=== PATIENT | female | born 1975 | race Caucasian/White ===

== ENCOUNTER 2017-06-29 11:28 | Inpatient (IN) ==
[2017-06-29 12:14] LABS: Basophils % 0.6 %; Eosinophils # 0.2 K/mcL (0.0-0.6); Eosinophils % 2.9 %; Hematocrit 29.5 % (35.3-44.9); Hemoglobin 9.3 g/dL (11.5-15.4); Immature Granulocytes % 0.4 % (0-4); Lymphocytes # 0.3 K/mcL (0.6-4.6); Lymphocytes % 5.7 %; Mean Corpuscular HGB Conc 31.5 g/dL (31.6-35.5); Mean Corpuscular Hemoglobin 29.2 pg (28.0-33.3); Mean Corpuscular Volume 92.5 fL (83.0-100.0); Mean Platelet Volume 11.2 fL (9.4-12.4); Monocytes # 0.5 K/mcL (0.0-1.3); Neutrophils # 4.3 K/mcL (1.6-8.9); Platelet Count 218 K/mcL (140-400); Red Blood Count 3.19 M/mcL (3.82-4.97); Segmented Neutrophils % 81.4 %
--- NOTE | 2017-06-29 12:16 | Emergency Department Note ---
Disposition Clinical Impression: Acute exacerbation of chronic obstructive airways disease, Congestive heart failure Disposition: Admitted As Inpatient Condition: Good General Adult HPI - General Chief complaint: ED Shortness of Breath/Dyspnea Stated complaint: "CHF,sent from cardiology" Time Seen by Provider: 06/29/17 11:41 Source: patient, family Mode of arrival: ambulatory Limitations: no limitations Nursing Notes Reviewed: Yes Vital Signs Reviewed: Yes - History of Present Illness HPI Narrative: Patient presents to the ED from cardiology office for admission for new onset CHF. Patient states she was seeing cardiology here as a second opinion from the CHF unit at [facility]. States that [facility] wanted to put in a pacemaker for an EF of 30%, but she did not agree. She states that she does not have any chest pain or shortness breath. No history of coronary artery disease. States that she gets abdominal pain and swelling and bloating and they told her that the CHF is and her belly. She does not have any peripheral edema. States she otherwise feels fine but just wanted a second opinion and they wanted her admitted for nephrology consult and echocardiogram. Pain Scale: 8 - Related Data Home Medications Medication Instructions Recorded Confirmed Carvedilol [Coreg] 50 mg PO BID 06/29/17 06/29/17 Gabapentin [Neurontin] 300 mg PO BID 06/29/17 06/29/17 GlipiZIDE [Glipizide ER] 10 mg PO BID 06/29/17 06/29/17 HYDROcodone/Acet 10/325 mg [[place] 2 tab PO TID PRN 06/29/17 06/29/17 10-325 mg] Hydralazine HCl 100 mg PO TID 06/29/17 06/29/17 Insulin ASPART [Novolog] 8 unit SQ TIDWM PRN 06/29/17 06/29/17 Insulin Glargine,Hum.rec.anlog 20 unit SQ HS PRN 06/29/17 06/29/17 [Lantus Solostar] Isosorbide DInitrate [Isosorbide 30 mg PO TID 06/29/17 06/29/17 Dinitrate] Levothyroxine [Synthroid] 50 mcg PO 0630 06/29/17 06/29/17 Lisinopril-HCTZ 10-12.5 [Prinzide 1 tab PO BID 06/29/17 06/29/17 10-12.5] Sertraline [Zoloft] 100 mg PO DAILY 06/29/17 06/29/17 Torsemide [Demadex] 40 mg PO QID 06/29/17 06/29/17 Allergies Allergy/AdvReac Type Severity Reaction Status Date / Time baclofen Allergy Diarrhea Verified 06/29/17 12:45 exenatide [From [place]] Allergy Diarrhea Verified 06/29/17 12:45 sulfamethoxazole Allergy Rash Verified 06/29/17 12:45 [From Bactrim] trimethoprim [From Bactrim] Allergy Rash Verified 06/29/17 12:45 Review of Systems: As reviewed in the HPI. All other systems reviewed are negative or normal. Past Medical History - Past Medical History Attestation: Yes The following information was validated with the patient. Source: patient Medical history: Reports: non-contributory, CHF, diabetes, hypertension, other Psychiatric history: Reports: depression - Social History Smoking Status: Former smoker Smokeless Tobacco Status: No Alcohol use: Reports: none Drug use: Reports: none Physical Exam - General Limitations: no limitations General appearance: alert, in no apparent distress - Head Head exam: atraumatic, normocephalic, normal inspection - Eye Eye exam: Present: normal appearance, PERRL, EOMI - Chest Chest inspection: Present: normal inspection, symmetric chest wall rise - Respiratory Respiratory exam: Present: normal lung sounds bilaterally. Absent: respiratory distress, wheezes - Cardiovascular Cardiovascular exam: Present: regular rate, normal rhythm, normal heart sounds - Abdominal Exam Abdominal exam: Present: soft, distention, other (obese but no obvious ascites ) . Absent: tenderness, guarding, rebound, rigidity - Extremities Exam Extremities exam: Present: normal inspection, full ROM. Absent: tenderness, pedal edema - Neurological Exam Neurological exam: Present: alert, oriented X3 - Psychiatric Psychiatric exam: Present: normal affect, normal mood - Skin Skin exam: Present: warm, dry, intact, normal color Course Course Narrative: Patient presenting from cardiology for admission and CHF workup. Clinically she does not appear to be in acute CHF. We will check labs. We will also check liver enzymes and liver function, although she denies any history of hepatitis or cirrhosis. Vital Signs Temperature 97.9 F 06/29/17 11:34 Pulse Rate 73 06/29/17 11:34 Respiratory Rate 22 06/29/17 11:34 Blood Pressure 149/86 06/29/17 11:34 O2 Sat by Pulse Oximetry 93 06/29/17 11:34 Temperature 98.1 F 06/29/17 15:52 Pulse Rate 75 06/29/17 15:52 Respiratory Rate 16 06/29/17 15:52 Blood Pressure 151/88 06/29/17 15:52 O2 Sat by Pulse Oximetry 95 06/29/17 15:52 Oxygen Delivery Oxygen Delivery Room Air Medical Decision Making - Medical Records Medical records reviewed: Yes I reviewed the patient's medical records. - Lab Data Lab results reviewed: Yes I reviewed the patient's lab results. Result diagrams: 06/29/17 12:03 06/29/17 12:03 Lab Results 06/29/17 06/29/17 06/29/17 Range/Units 12:03 12:03 12:03 WBC 5.2 (4.3-11.1) K/mcL RBC 3.19 L (3.82-4.97) M/mcL Hgb 9.3 L (11.5-15.4) g/dL Hct 29.5 L (35.3-44.9) % MCV 92.5 (83.0-100.0) fL MCH 29.2 (28.0-33.3) pg MCHC 31.5 L (31.6-35.5) g/dL RDW 14.0 (11.5-14.5) % Plt Count 218 (140-400) K/mcL MPV 11.2 (9.4-12.4) fL Immature Gran % 0.4 (0-4) % Seg Neutrophils % 81.4 % Lymphocytes % 5.7 % Monocytes % 9.0 % Eosinophils % 2.9 % Basophils % 0.6 % Neutrophils # 4.3 (1.6-8.9) K/mcL Lymphocytes # 0.3 L (0.6-4.6) K/mcL Monocytes # 0.5 (0.0-1.3) K/mcL Eosinophils # 0.2 (0.0-0.6) K/mcL Basophils # 0.0 (0.0-0.2) K/mcL PT 13.6 H (9.4-12.1) Seconds INR 1.3 APTT 30.2 (26.0-36.0) Seconds Sodium 137 (136-145) mEq/L Potassium 4.3 (3.5-5.1) mEq/L Chloride 97 L (98-107) mEq/L Carbon Dioxide 30 H (23-29) mEq/L BUN 88 H (6-20) mg/dL Creatinine 3.11 H (0.60-1.20) mg/dL Est GFR ( Amer) 20 L (> 60) Est GFR (Non-Af Amer) 16 L (> 60) BUN/Creatinine Ratio 28 H (6-26) Glucose 225 H (70-105) mg/dL Calculated Osmolality 318 H (280-300) Lactic Acid (0.5-2.2) mmol/L Calcium 7.6 L (8.6-10.3) mg/dL Phosphorus 5.3 H (2.7-4.5) mg/dL Total Bilirubin 0.4 (0.3-1.0) mg/dL Direct Bilirubin 0.2 (0.0-0.2) mg/dL Indirect Bilirubin 0.2 (0.0-1.2) mg/dL AST 14 (13-39) Units/L ALT 10 (7-52) Units/L Alkaline Phosphatase 167 H (34-104) Units/L Troponin I 0.03 (< 0.04) ng/mL B-Natriuretic Peptide (Less than 100) pg/mL Serum Total Protein 8.0 (6.4-8.9) g/dL Albumin 3.4 L (3.5-5.7) g/dL Globulin 4.6 H (2.4-3.5) g/dL Albumin/Globulin Ratio 0.7 L (1.1-2.2) TSH 11.357 H (0.340-5.600) mcIU/mL Urine Color (Yellow) Urine Clarity (Clear) Urine pH (5.0-8.0) pH Units Ur Specific [place] (1.010-1.025) Urine Protein (Neg-Trace) mg/dL Urine Glucose (UA) (Normal) mg/dL Urine Ketones (Negative) mg/dL Urine Blood (Negative) Urine Nitrite (Negative) Urine Bilirubin (Negative) Urine Urobilinogen (Normal) mg/dL Ur Leukocyte Esterase (Negative) Urine Microscopic RBC (0-3) per hpf Urine Microscopic WBC (0-3) per hpf Ur Squamous Epith Cells (None-Few) per lpf Urine Bacteria (None-Few) per hpf Hyaline Casts (None-Few) per lpf Ur Culture Indicated? (NO) Urine Creatinine mg/dL Protein/Creatinin Ratio (0.00-0.20) mg/mg Urine Sodium mEq/L Urine Urea Nitrogen mg/dL Urine Total Protein (1-14) mg/dL 06/29/17 06/29/17 06/29/17 Range/Units 12:03 12:03 12:32 WBC (4.3-11.1) K/mcL RBC (3.82-4.97) M/mcL Hgb (11.5-15.4) g/dL Hct (35.3-44.9) % MCV (83.0-100.0) fL MCH (28.0-33.3) pg MCHC (31.6-35.5) g/dL RDW (11.5-14.5) % Plt Count (140-400) K/mcL MPV (9.4-12.4) fL Immature Gran % (0-4) % Seg Neutrophils % % Lymphocytes % % Monocytes % % Eosinophils % % Basophils % % Neutrophils # (1.6-8.9) K/mcL Lymphocytes # (0.6-4.6) K/mcL Monocytes # (0.0-1.3) K/mcL Eosinophils # (0.0-0.6) K/mcL Basophils # (0.0-0.2) K/mcL PT (9.4-12.1) Seconds INR APTT (26.0-36.0) Seconds Sodium (136-145) mEq/L Potassium (3.5-5.1) mEq/L Chloride (98-107) mEq/L Carbon Dioxide (23-29) mEq/L BUN (6-20) mg/dL Creatinine (0.60-1.20) mg/dL Est GFR ( Amer) (> 60) Est GFR (Non-Af Amer) (> 60) BUN/Creatinine Ratio (6-26) Glucose (70-105) mg/dL Calculated Osmolality (280-300) Lactic Acid 0.8 (0.5-2.2) mmol/L Calcium (8.6-10.3) mg/dL Phosphorus (2.7-4.5) mg/dL Total Bilirubin (0.3-1.0) mg/dL Direct Bilirubin (0.0-0.2) mg/dL Indirect Bilirubin (0.0-1.2) mg/dL AST (13-39) Units/L ALT (7-52) Units/L Alkaline Phosphatase (34-104) Units/L Troponin I (< 0.04) ng/mL B-Natriuretic Peptide 866 H (Less than 100) pg/mL Serum Total Protein (6.4-8.9) g/dL Albumin (3.5-5.7) g/dL Globulin (2.4-3.5) g/dL Albumin/Globulin Ratio (1.1-2.2) TSH (0.340-5.600) mcIU/mL Urine Color Yellow (Yellow) Urine Clarity Cloudy A (Clear) Urine pH 6.5 (5.0-8.0) pH Units Ur Specific [place] 1.013 (1.010-1.025) Urine Protein 30 H (Neg-Trace) mg/dL Urine Glucose (UA) Normal (Normal) mg/dL Urine Ketones Negative (Negative) mg/dL Urine Blood Negative (Negative) Urine Nitrite Negative (Negative) Urine Bilirubin Negative (Negative) Urine Urobilinogen Normal (Normal) mg/dL Ur Leukocyte Esterase Trace H (Negative) Urine Microscopic RBC 0-3 (0-3) per hpf Urine Microscopic WBC 5-15 H (0-3) per hpf Ur Squamous Epith Cells Many H (None-Few) per lpf Urine Bacteria Many H (None-Few) per hpf Hyaline Casts None Seen (None-Few) per lpf Ur Culture Indicated? NO. A (NO) Urine Creatinine mg/dL Protein/Creatinin Ratio (0.00-0.20) mg/mg Urine Sodium mEq/L Urine Urea Nitrogen mg/dL Urine Total Protein (1-14) mg/dL 06/29/17 Range/Units 12:32 WBC (4.3-11.1) K/mcL RBC (3.82-4.97) M/mcL Hgb (11.5-15.4) g/dL Hct (35.3-44.9) % MCV (83.0-100.0) fL MCH (28.0-33.3) pg MCHC (31.6-35.5) g/dL RDW (11.5-14.5) % Plt Count (140-400) K/mcL MPV (9.4-12.4) fL Immature Gran % (0-4) % Seg Neutrophils % % Lymphocytes % % Monocytes % % Eosinophils % % Basophils % % Neutrophils # (1.6-8.9) K/mcL Lymphocytes # (0.6-4.6) K/mcL Monocytes # (0.0-1.3) K/mcL Eosinophils # (0.0-0.6) K/mcL Basophils # (0.0-0.2) K/mcL PT (9.4-12.1) Seconds INR APTT (26.0-36.0) Seconds Sodium (136-145) mEq/L Potassium (3.5-5.1) mEq/L Chloride (98-107) mEq/L Carbon Dioxide (23-29) mEq/L BUN (6-20) mg/dL Creatinine (0.60-1.20) mg/dL Est GFR ( Amer) (> 60) Est GFR (Non-Af Amer) (> 60) BUN/Creatinine Ratio (6-26) Glucose (70-105) mg/dL Calculated Osmolality (280-300) Lactic Acid (0.5-2.2) mmol/L Calcium (8.6-10.3) mg/dL Phosphorus (2.7-4.5) mg/dL Total Bilirubin (0.3-1.0) mg/dL Direct Bilirubin (0.0-0.2) mg/dL Indirect Bilirubin (0.0-1.2) mg/dL AST (13-39) Units/L ALT (7-52) Units/L Alkaline Phosphatase (34-104) Units/L Troponin I (< 0.04) ng/mL B-Natriuretic Peptide (Less than 100) pg/mL Serum Total Protein (6.4-8.9) g/dL Albumin (3.5-5.7) g/dL Globulin (2.4-3.5) g/dL Albumin/Globulin Ratio (1.1-2.2) TSH (0.340-5.600) mcIU/mL Urine Color (Yellow) Urine Clarity (Clear) Urine pH (5.0-8.0) pH Units Ur Specific [place] (1.010-1.025) Urine Protein (Neg-Trace) mg/dL Urine Glucose (UA) (Normal) mg/dL Urine Ketones (Negative) mg/dL Urine Blood (Negative) Urine Nitrite (Negative) Urine Bilirubin (Negative) Urine Urobilinogen (Normal) mg/dL Ur Leukocyte Esterase (Negative) Urine Microscopic RBC (0-3) per hpf Urine Microscopic WBC (0-3) per hpf Ur Squamous Epith Cells (None-Few) per lpf Urine Bacteria (None-Few) per hpf Hyaline Casts (None-Few) per lpf Ur Culture Indicated? (NO) Urine Creatinine 63 mg/dL Protein/Creatinin Ratio 0.75 H (0.00-0.20) mg/mg Urine Sodium 77.4 mEq/L Urine Urea Nitrogen 320 mg/dL Urine Total Protein 47 H (1-14) mg/dL - Radiology Data Radiology results reviewed: Yes I reviewed the patient's radiology results. - EKG Data EKG #1 EKG attestation: Yes I reviewed and interpreted this EKG. EKG results narrative: Sinus rhythm, rate 74, NV interval 147, QRS 90, QTC 439, normal axis, no acute ischemic changes
[2017-06-29 12:22] LABS: INR 1.3; Prothrombin Time 13.6 Seconds (9.4-12.1)
--- NOTE | 2017-06-29 12:24 | Emergency Department Note ---
Disposition Clinical Impression: Acute exacerbation of chronic obstructive airways disease, Congestive heart failure Disposition: Admitted As Inpatient Condition: Good General Adult HPI - General Chief complaint: ED Shortness of Breath/Dyspnea Stated complaint: "CHF,sent from cardiology" Time Seen by Provider: 06/29/17 11:41 Source: patient, family Limitations: no limitations Nursing Notes Reviewed: Yes Vital Signs Reviewed: Yes - History of Present Illness Pain Scale: 8 - Related Data Home Medications Medication Instructions Recorded Confirmed Carvedilol [Coreg] 50 mg PO BID 06/29/17 06/29/17 Gabapentin [Neurontin] 300 mg PO BID 06/29/17 06/29/17 GlipiZIDE [Glipizide ER] 10 mg PO BID 06/29/17 06/29/17 HYDROcodone/Acet 10/325 mg [[place] 2 tab PO TID PRN 06/29/17 06/29/17 10-325 mg] Hydralazine HCl 100 mg PO TID 06/29/17 06/29/17 Insulin ASPART [Novolog] 8 unit SQ TIDWM PRN 06/29/17 06/29/17 Insulin Glargine,Hum.rec.anlog 20 unit SQ HS PRN 06/29/17 06/29/17 [Lantus Solostar] Isosorbide DInitrate [Isosorbide 30 mg PO TID 06/29/17 06/29/17 Dinitrate] Levothyroxine [Synthroid] 50 mcg PO 0630 06/29/17 06/29/17 Lisinopril-HCTZ 10-12.5 [Prinzide 1 tab PO BID 06/29/17 06/29/17 10-12.5] Sertraline [Zoloft] 100 mg PO DAILY 06/29/17 06/29/17 Torsemide [Demadex] 40 mg PO QID 06/29/17 06/29/17 Allergies Allergy/AdvReac Type Severity Reaction Status Date / Time baclofen Allergy Diarrhea Verified 06/29/17 12:45 exenatide [From [place]] Allergy Diarrhea Verified 06/29/17 12:45 sulfamethoxazole Allergy Rash Verified 06/29/17 12:45 [From Bactrim] trimethoprim [From Bactrim] Allergy Rash Verified 06/29/17 12:45 Past Medical History - Past Medical History Medical history: Reports: non-contributory, CHF, diabetes, hypertension, other Psychiatric history: Reports: depression - Social History Smoking Status: Former smoker Smokeless Tobacco Status: No Alcohol use: Reports: none Drug use: Reports: none Physical Exam - General Limitations: no limitations General appearance: alert, in no apparent distress Course Vital Signs Temperature 97.9 F 06/29/17 11:34 Pulse Rate 73 06/29/17 11:34 Respiratory Rate 22 06/29/17 11:34 Blood Pressure 149/86 06/29/17 11:34 O2 Sat by Pulse Oximetry 93 06/29/17 11:34 Temperature 98.1 F 06/29/17 15:52 Pulse Rate 75 06/29/17 15:52 Respiratory Rate 16 06/29/17 15:52 Blood Pressure 151/88 06/29/17 15:52 O2 Sat by Pulse Oximetry 95 06/29/17 15:52 Oxygen Delivery Oxygen Delivery Room Air Medical Decision Making - MDM Narrative Medical decision making narrative: This documentation is done with the assistance of Dragon dictation. Despite efforts made to ensure accuracy, there may be inaccuracies in grade foreman or spelling and typographical errors. Patient is comfortable at this time labs are fairly unimpressive. Chest x-ray shows no acute CHF. We will bring her in for evaluation. Spoke with hospitalist in agreement with this plan. Chest X-Ray 06/29/17 11:42 IMPRESSION: No acute abnormality. D/ / Isael Odonnell MD / Isael Odonnell MD Interpreting Provider: Isale Odonnell MD - Lab Data Result diagrams: 06/29/17 12:03 06/29/17 12:03 Lab Results 06/29/17 06/29/17 06/29/17 Range/Units 12:03 12:03 12:03 WBC 5.2 (4.3-11.1) K/mcL RBC 3.19 L (3.82-4.97) M/mcL Hgb 9.3 L (11.5-15.4) g/dL Hct 29.5 L (35.3-44.9) % MCV 92.5 (83.0-100.0) fL MCH 29.2 (28.0-33.3) pg MCHC 31.5 L (31.6-35.5) g/dL RDW 14.0 (11.5-14.5) % Plt Count 218 (140-400) K/mcL MPV 11.2 (9.4-12.4) fL Immature Gran % 0.4 (0-4) % Seg Neutrophils % 81.4 % Lymphocytes % 5.7 % Monocytes % 9.0 % Eosinophils % 2.9 % Basophils % 0.6 % Neutrophils # 4.3 (1.6-8.9) K/mcL Lymphocytes # 0.3 L (0.6-4.6) K/mcL Monocytes # 0.5 (0.0-1.3) K/mcL Eosinophils # 0.2 (0.0-0.6) K/mcL Basophils # 0.0 (0.0-0.2) K/mcL PT 13.6 H (9.4-12.1) Seconds INR 1.3 APTT 30.2 (26.0-36.0) Seconds Sodium 137 (136-145) mEq/L Potassium 4.3 (3.5-5.1) mEq/L Chloride 97 L (98-107) mEq/L Carbon Dioxide 30 H (23-29) mEq/L BUN 88 H (6-20) mg/dL Creatinine 3.11 H (0.60-1.20) mg/dL Est GFR ( Amer) 20 L (> 60) Est GFR (Non-Af Amer) 16 L (> 60) BUN/Creatinine Ratio 28 H (6-26) Glucose 225 H (70-105) mg/dL Calculated Osmolality 318 H (280-300) Lactic Acid (0.5-2.2) mmol/L Calcium 7.6 L (8.6-10.3) mg/dL Phosphorus 5.3 H (2.7-4.5) mg/dL Total Bilirubin 0.4 (0.3-1.0) mg/dL Direct Bilirubin 0.2 (0.0-0.2) mg/dL Indirect Bilirubin 0.2 (0.0-1.2) mg/dL AST 14 (13-39) Units/L ALT 10 (7-52) Units/L Alkaline Phosphatase 167 H (34-104) Units/L Troponin I 0.03 (< 0.04) ng/mL B-Natriuretic Peptide (Less than 100) pg/mL Serum Total Protein 8.0 (6.4-8.9) g/dL Albumin 3.4 L (3.5-5.7) g/dL Globulin 4.6 H (2.4-3.5) g/dL Albumin/Globulin Ratio 0.7 L (1.1-2.2) TSH 11.357 H (0.340-5.600) mcIU/mL Urine Color (Yellow) Urine Clarity (Clear) Urine pH (5.0-8.0) pH Units Ur Specific [place] (1.010-1.025) Urine Protein (Neg-Trace) mg/dL Urine Glucose (UA) (Normal) mg/dL Urine Ketones (Negative) mg/dL Urine Blood (Negative) Urine Nitrite (Negative) Urine Bilirubin (Negative) Urine Urobilinogen (Normal) mg/dL Ur Leukocyte Esterase (Negative) Urine Microscopic RBC (0-3) per hpf Urine Microscopic WBC (0-3) per hpf Ur Squamous Epith Cells (None-Few) per lpf Urine Bacteria (None-Few) per hpf Hyaline Casts (None-Few) per lpf Ur Culture Indicated? (NO) Urine Creatinine mg/dL Protein/Creatinin Ratio (0.00-0.20) mg/mg Urine Sodium mEq/L Urine Urea Nitrogen mg/dL Urine Total Protein (1-14) mg/dL 06/29/17 06/29/17 06/29/17 Range/Units 12:03 12:03 12:32 WBC (4.3-11.1) K/mcL RBC (3.82-4.97) M/mcL Hgb (11.5-15.4) g/dL Hct (35.3-44.9) % MCV (83.0-100.0) fL MCH (28.0-33.3) pg MCHC (31.6-35.5) g/dL RDW (11.5-14.5) % Plt Count (140-400) K/mcL MPV (9.4-12.4) fL Immature Gran % (0-4) % Seg Neutrophils % % Lymphocytes % % Monocytes % % Eosinophils % % Basophils % % Neutrophils # (1.6-8.9) K/mcL Lymphocytes # (0.6-4.6) K/mcL Monocytes # (0.0-1.3) K/mcL Eosinophils # (0.0-0.6) K/mcL Basophils # (0.0-0.2) K/mcL PT (9.4-12.1) Seconds INR APTT (26.0-36.0) Seconds Sodium (136-145) mEq/L Potassium (3.5-5.1) mEq/L Chloride (98-107) mEq/L Carbon Dioxide (23-29) mEq/L BUN (6-20) mg/dL Creatinine (0.60-1.20) mg/dL Est GFR ( Amer) (> 60) Est GFR (Non-Af Amer) (> 60) BUN/Creatinine Ratio (6-26) Glucose (70-105) mg/dL Calculated Osmolality (280-300) Lactic Acid 0.8 (0.5-2.2) mmol/L Calcium (8.6-10.3) mg/dL Phosphorus (2.7-4.5) mg/dL Total Bilirubin (0.3-1.0) mg/dL Direct Bilirubin (0.0-0.2) mg/dL Indirect Bilirubin (0.0-1.2) mg/dL AST (13-39) Units/L ALT (7-52) Units/L Alkaline Phosphatase (34-104) Units/L Troponin I (< 0.04) ng/mL B-Natriuretic Peptide 866 H (Less than 100) pg/mL Serum Total Protein (6.4-8.9) g/dL Albumin (3.5-5.7) g/dL Globulin (2.4-3.5) g/dL Albumin/Globulin Ratio (1.1-2.2) TSH (0.340-5.600) mcIU/mL Urine Color Yellow (Yellow) Urine Clarity Cloudy A (Clear) Urine pH 6.5 (5.0-8.0) pH Units Ur Specific [place] 1.013 (1.010-1.025) Urine Protein 30 H (Neg-Trace) mg/dL Urine Glucose (UA) Normal (Normal) mg/dL Urine Ketones Negative (Negative) mg/dL Urine Blood Negative (Negative) Urine Nitrite Negative (Negative) Urine Bilirubin Negative (Negative) Urine Urobilinogen Normal (Normal) mg/dL Ur Leukocyte Esterase Trace H (Negative) Urine Microscopic RBC 0-3 (0-3) per hpf Urine Microscopic WBC 5-15 H (0-3) per hpf Ur Squamous Epith Cells Many H (None-Few) per lpf Urine Bacteria Many H (None-Few) per hpf Hyaline Casts None Seen (None-Few) per lpf Ur Culture Indicated? NO. A (NO) Urine Creatinine mg/dL Protein/Creatinin Ratio (0.00-0.20) mg/mg Urine Sodium mEq/L Urine Urea Nitrogen mg/dL Urine Total Protein (1-14) mg/dL 06/29/17 Range/Units 12:32 WBC (4.3-11.1) K/mcL RBC (3.82-4.97) M/mcL Hgb (11.5-15.4) g/dL Hct (35.3-44.9) % MCV (83.0-100.0) fL MCH (28.0-33.3) pg MCHC (31.6-35.5) g/dL RDW (11.5-14.5) % Plt Count (140-400) K/mcL MPV (9.4-12.4) fL Immature Gran % (0-4) % Seg Neutrophils % % Lymphocytes % % Monocytes % % Eosinophils % % Basophils % % Neutrophils # (1.6-8.9) K/mcL Lymphocytes # (0.6-4.6) K/mcL Monocytes # (0.0-1.3) K/mcL Eosinophils # (0.0-0.6) K/mcL Basophils # (0.0-0.2) K/mcL PT (9.4-12.1) Seconds INR APTT (26.0-36.0) Seconds Sodium (136-145) mEq/L Potassium (3.5-5.1) mEq/L Chloride (98-107) mEq/L Carbon Dioxide (23-29) mEq/L BUN (6-20) mg/dL Creatinine (0.60-1.20) mg/dL Est GFR ( Amer) (> 60) Est GFR (Non-Af Amer) (> 60) BUN/Creatinine Ratio (6-26) Glucose (70-105) mg/dL Calculated Osmolality (280-300) Lactic Acid (0.5-2.2) mmol/L Calcium (8.6-10.3) mg/dL Phosphorus (2.7-4.5) mg/dL Total Bilirubin (0.3-1.0) mg/dL Direct Bilirubin (0.0-0.2) mg/dL Indirect Bilirubin (0.0-1.2) mg/dL AST (13-39) Units/L ALT (7-52) Units/L Alkaline Phosphatase (34-104) Units/L Troponin I (< 0.04) ng/mL B-Natriuretic Peptide (Less than 100) pg/mL Serum Total Protein (6.4-8.9) g/dL Albumin (3.5-5.7) g/dL Globulin (2.4-3.5) g/dL Albumin/Globulin Ratio (1.1-2.2) TSH (0.340-5.600) mcIU/mL Urine Color (Yellow) Urine Clarity (Clear) Urine pH (5.0-8.0) pH Units Ur Specific [place] (1.010-1.025) Urine Protein (Neg-Trace) mg/dL Urine Glucose (UA) (Normal) mg/dL Urine Ketones (Negative) mg/dL Urine Blood (Negative) Urine Nitrite (Negative) Urine Bilirubin (Negative) Urine Urobilinogen (Normal) mg/dL Ur Leukocyte Esterase (Negative) Urine Microscopic RBC (0-3) per hpf Urine Microscopic WBC (0-3) per hpf Ur Squamous Epith Cells (None-Few) per lpf Urine Bacteria (None-Few) per hpf Hyaline Casts (None-Few) per lpf Ur Culture Indicated? (NO) Urine Creatinine 63 mg/dL Protein/Creatinin Ratio 0.75 H (0.00-0.20) mg/mg Urine Sodium 77.4 mEq/L Urine Urea Nitrogen 320 mg/dL Urine Total Protein 47 H (1-14) mg/dL Attestation Statement - Attestation Attestation: I examined this patient and my medical decision-making was reviewed with the Resident Physician. I agree with the documented findings, disposition and treatment plan as described except to the extent set forth below. Patient presents with probable CHF and edema in the abdomen and some swelling in the legs shortness of breath and dyspnea has been seen at the CHF clinic at [facility] but not here. We will go ahead and worked the patient up most likely will need admission. They are in agreement with plan. Chest X-Ray 06/29/17 11:42 IMPRESSION: No acute abnormality. D/ / Isael Odonnell MD / Isael Odonnell MD Interpreting Provider: Isael Odonnell MD
[2017-06-29 12:25] LABS: Activated Partial Thrombo Time 30.2 Seconds (26.0-36.0)
[2017-06-29 12:44] LABS: Troponin I 0.03 ng/mL (< 0.04)
[2017-06-29 12:45] LABS: Bilirubin,Urine Negative (Negative); Blood,Urine Negative (Negative); Clarity,Urine Cloudy (Clear); Color,Urine Yellow (Yellow); Glucose,Urine (UA) Normal (Normal); Ketones,Urine Negative (Negative); Leukocyte Esterase,Urine Trace (Negative); Nitrite,Urine Negative (Negative); PH,Urine 6.5 pH Units (5.0-8.0); Protein,Urine 30 mg/dL (Neg-Trace); Specific Gravity,Urine 1.013 (1.010-1.025); Urobilinogen,Urine Normal (Normal)
[2017-06-29 12:46] LABS: Bacteria,Urine Many per hpf (None-Few); Hyaline Casts,Urine None Seen per lpf (None-Few); RBC,Urine 0-3 per hpf (0-3); Squamous Epithelial Cell,Urine Many per lpf (None-Few)
[2017-06-29 13:03] LABS: Albumin 3.4 g/dL (3.5-5.7); Albumin/Globulin Ratio 0.7 (1.1-2.2); Bilirubin,Direct 0.2 mg/dL (0.0-0.2); Bilirubin,Indirect 0.2 mg/dL (0.0-1.2); Bilirubin,Total 0.4 mg/dL (0.3-1.0); Calcium 7.6 mg/dL (8.6-10.3); Globulin 4.6 g/dL (2.4-3.5); Phosphorous 5.3 mg/dL (2.7-4.5); Potassium 4.3 mEq/L (3.5-5.1)
[2017-06-29 13:22] LABS: Thyroid Stimulating Hormone 11.357 mcIU/mL (0.340-5.600)
--- NOTE | 2017-06-29 14:09 | Cardiology Consult Note ---
Date of Encounter: 06/29/17 Time of Encounter: 14:00 Assessment and Plan (1) CHF (congestive heart failure), NYHA class III Current Visit: Yes Status: Acute Per cardiology: -Admitted with CHF. -Reports 30 pound weight gain in 2 months, reports 150 pounds weight gain in 6 months. -Chest x-ray with no acute process. BNP 866. -Increased abdominal girth and lower extremity edema noted -Was on torsemide 80mg BID at home. -Reports compliance with sodium and fluid restriction. -Suspect bi-ventricular heart failure -Strict i/os, daily weights, fluid restriction. -Will discuss and review with Qualifiers: Congestive heart failure type: systolic Congestive heart failure chronicity : acute on chronic Qualified Code(s): I50.23 - Acute on chronic systolic ( congestive) heart failure (2) Cardiomyopathy Current Visit: Yes Status: Acute Per cardiology: -TTE 04/27/17 from [facility] reviewed with LV mildly dilated, mild concentric LVH, diffuse global hypokinesis, LVEF 25-30%, septal flattening of the interventricular septum consistent with RV volume overload, RV is mildly dilated with mildly reduced global systolic function, RA mildly dilated, mild TR , trivial pericardial effusion. -Per review of [facility] records, LHC was not performed due to renal function. Nuclear stress test was performed without evidence of ischemia. Cardiomyopathy thought to be non-ischemic. -On coreg in outpateint setting, previously on halie inhibitor. -Will repeat TTE. -Continue BB, hold halie inhibitor due to renal function. Qualifiers: Cardiomyopathy type: unspecified Qualified Code(s): I42.9 - Cardiomyopathy , unspecified (3) KAYA (acute kidney injury) Current Visit: Yes Status: Acute Per cardiology: -Per patient and creatinine at [facility] 1.9-2.5. -Creatinine 3.11. -Recommend nephrology consult. -Management per primary service. Discussion w patient/family: The assessment and plan as outlined above was discussed with the patient and/or family members who expressed understanding and agreement. All questions were answered. Thank you for involving us in the care of your patient. Please call with any questions. Discussed and reviewed with History of Present Illness Consult date: 06/29/17 Requesting physician: Eliud Pelayo Consult reason: chf Chief complaint: weight gain, shortness of breath History of present illness: Ms. Murphy is a 41 year old female with a relevant past medical history of cardiomyopathy thought to be non-ischemic, CHF, thyroid disease, DM, HTN. Patient presented to outpatient cardiology appointment to obtain a second opinion regarding heart failure. Patient was referred to ER due to weight gain, shortness of breath. Patient reports has gained 30 pounds since March. Patient reports prior to diagnosis with CHF, her weight was 160 pounds, currently 311 pounds. Patient reports increased abdominal girth, increased peripheral edema. Denies chest pain. Reports shortness of breath with exertion. Reports orthopnea. Past Med Surg Social Fam HX - Past Medical History Attestation: Yes The following information was validated with the patient. Source: patient, old records reviewed, obtained from family Medical history: cardiomyopathy, CHF, diabetes, hypertension, thyroid disease, other Psychiatric history: depression - Social History Smoking Status: Former smoker Smokeless Tobacco Status: No Alcohol use: none Drug use: none - Family History Mother Living Status: Hx Family Cancer: Yes Medications and Allergies Carvedilol [Coreg] 50 mg PO BID 06/29/17 [History] Gabapentin [Neurontin] 300 mg PO BID 06/29/17 [History] GlipiZIDE [Glipizide ER] 10 mg PO BID 06/29/17 [History] HYDROcodone/Acet 10/325 mg [[place] 10-325 mg] 2 tab PO TID PRN 06/29/17 [History] Hydralazine HCl 100 mg PO TID 06/29/17 [History] Insulin ASPART [Novolog] 8 unit SQ TIDWM PRN 06/29/17 [History] Insulin Glargine,Hum.rec.anlog [Lantus Solostar] 20 unit SQ HS PRN 06/29/17 [ History] Isosorbide DInitrate [Isosorbide Dinitrate] 30 mg PO TID 06/29/17 [History] Levothyroxine [Synthroid] 50 mcg PO 0630 06/29/17 [History] Lisinopril-HCTZ 10-12.5 [Prinzide 10-12.5] 1 tab PO BID 06/29/17 [History] Sertraline [Zoloft] 100 mg PO DAILY 06/29/17 [History] Torsemide [Demadex] 40 mg PO QID 06/29/17 [History] 3 Allergy/AdvReac Type Severity Reaction Status Date / Time baclofen Allergy Diarrhea Verified 06/29/17 12:45 exenatide [From Byetta] Allergy Diarrhea Verified 06/29/17 12:45 sulfamethoxazole Allergy Rash Verified 06/29/17 12:45 [From Bactrim] trimethoprim [From Bactrim] Allergy Rash Verified 06/29/17 12:45 All Systems Review: The remainder of the systems were reviewed and are negative - Constitutional Constitutional: weight gain - Cardiovascular Cardiovascular: as per HPI, leg edema, orthopnea Physical Examination Vital Signs, Last 4 Hours Temp Pulse Resp BP Pulse Ox 06/29/17 13:13 98.0 F 73 20 137/86 96 06/29/17 12:46 20 148/86 General: Conversant, No Apparent Distress HEENT: Atraumatic, Normocephaly, Mucus Membranes Moist Neck: No JVD, Normal carotid pulses Cardiac: Reg Rate and Rhythm, Normal S1 and S2, No Murmur Lungs: Other (Lung sounds diminished throughout. ) Neuro: Alert and responsive, No focal deficits noted Abdomen: Other (Abdomen hard. ) Skin: No rashes noted on visualized skin Musculoskeletal: No Chest Wall Tenderness Extremities: No Clubbing, No Cyanosis, Normal Pulses, Other (Bilateral lower extremity edema into thighs. ) Results 06/29/17 12:03 06/29/17 12:03 Impressions Chest X-Ray 06/29/17 11:42 IMPRESSION: No acute abnormality. D/ / Isael Odonnell MD / Isael Odonnell MD Interpreting Provider: Isael Odonnell MD Active Medications Hydrocodone Bitart/Acetaminophen ([place] 10-325 Mg) 2 each PO TID PRN PRN Reason: Pain Stop: 12/29/17 14:12 Carvedilol (Coreg) 50 mg PO BID BOWEN PRN Reason: Protocol Stop: 12/29/17 21:01 Gabapentin (Neurontin) 300 mg PO BID BOWEN Stop: 12/29/17 21:01 Glipizide (Glucotrol Xl) 5 mg PO 0800 [facility] Stop: 12/30/17 08:01 Levothyroxine Sodium (Synthroid) 50 mcg PO 0630 BOWEN Stop: 12/30/17 06:31 Non-Formulary Medication (Hydralazine Hcl [Hydralazine Hcl]) 100 mg PO TID BOWEN Stop: 12/29/17 15:01 Sertraline HCl (Zoloft) 100 mg PO DAILY BOWEN Stop: 12/30/17 09:01 Laboratory Tests 05/23/17 06/29/17 06/29/17 11:52 12:03 12:03 Hgb 9.3 L Creatinine 2.77 H 3.11 H B-Natriuretic Peptide 06/29/17 12:03 Hgb Creatinine B-Natriuretic Peptide 866 H - Imaging and Cardiology Chest Xray: report reviewed Echo: pending, report reviewed - EKG Interpretation EKG results cardiology: personally reviewed (ECG with SR, HR 74.) Consult Discharge Plan - Plan Referrals: Ramiro Vargas DO [Primary Care Provider] -
[2017-06-29] MEDS ORDERED: *HR* HYDROcodone/Acet 10/325 mg TABLET PO PRN (14:11)
[2017-06-29] MEDS ORDERED: D5% in Water 1,000 ML IVC PRN ×2 (14:14→19:27)
[2017-06-29] MEDS ORDERED: Dextrose Gel 15 GM/37.5 ML TUBE PO PRN ×4 (14:14→19:27)
[2017-06-29] MEDS ORDERED: *HR* Dextrose 50 % in Water (Syg) 50 ML SYRINGE IVP PRN ×2 (14:14→19:27)
[2017-06-29] MEDS ORDERED: Naloxone 0.4 MG/ML INJ IVP PRN ×2 (14:14→19:27)
--- NOTE | 2017-06-29 14:32 | Internal Med History&Physical ---
Date of Encounter: 06/29/17 Time of Encounter: 14:39 Internal Medicine - H&P: HPI Chief complaint: swelling, weight gain History of present illness: Ms. Murphy is a 41 year old female history of Maria thyroiditis on Synthroid, CKD, diabetes2 [address] Catherine Frausto's office for evaluation of fluid overload - anasarca. She reports visiting Dr. Frausto's office for second opinion. Her care was previously provided at [facility] where she was under the care of this practitioner Jean Claude Lopez for cardio myopathy with LVEF 30%. Was unable to undergo a left heart catheter due to kidney disease. He was reportedly offered a cardiac device per report but had declined. She reports 30 pound weight gain in the legs and belly in the last 2 months. He denies any shortness of breath or evidence of pulmonary edema at current. In the last couple of nights she has stopped using her insulin and is on sulfonylurea due to low blood sugar in the 60s and 70s in the morning. She does have chronic back pain on chronic narcotics. EKG unable to review because they were not available on transfer. However, referencing my EM colleague note in the ED revealed "Sinus rhythm, rate 74, NH interval 147, QRS 90, QTC 439, normal axis, no acute ischemic changes" FINDINGS: The lungs are clear. Pulmonary vascularity is normal. The cardiomediastinal silhouette is normal. XR/XR chest 1V portable IMPRESSION: No acute abnormality. Past Med Surg Social Fam HX - Past Medical History Medical history: cardiomyopathy, CHF, diabetes, hypertension, thyroid disease, other Psychiatric history: depression - Past Surgical History Surgical History: no surgical history, non-contributory - Social History Smoking Status: Former smoker Smokeless Tobacco Status: No Alcohol use: none Drug use: none - Family History Mother Living Status: Hx Family Cancer: Yes Internal Medicine - H&P: Meds Carvedilol [Coreg] 50 mg PO BID 06/29/17 [History] Gabapentin [Neurontin] 300 mg PO BID 06/29/17 [History] GlipiZIDE [Glipizide ER] 10 mg PO BID 06/29/17 [History] HYDROcodone/Acet 10/325 mg [[place] 10-325 mg] 2 tab PO TID PRN 06/29/17 [History] Hydralazine HCl 100 mg PO TID 06/29/17 [History] Insulin ASPART [Novolog] 8 unit SQ TIDWM PRN 06/29/17 [History] Insulin Glargine,Hum.rec.anlog [Lantus Solostar] 20 unit SQ HS PRN 06/29/17 [ History] Isosorbide DInitrate [Isosorbide Dinitrate] 30 mg PO TID 06/29/17 [History] Levothyroxine [Synthroid] 50 mcg PO 0630 06/29/17 [History] Lisinopril-HCTZ 10-12.5 [Prinzide 10-12.5] 1 tab PO BID 06/29/17 [History] Sertraline [Zoloft] 100 mg PO DAILY 06/29/17 [History] Torsemide [Demadex] 40 mg PO QID 06/29/17 [History] 3 Allergy/AdvReac Type Severity Reaction Status Date / Time baclofen Allergy Diarrhea Verified 06/29/17 12:45 exenatide [From Byetta] Allergy Diarrhea Verified 06/29/17 12:45 sulfamethoxazole Allergy Rash Verified 06/29/17 12:45 [From Bactrim] trimethoprim [From Bactrim] Allergy Rash Verified 06/29/17 12:45 All Systems PM: A 10-system review of systems was performed and is negative for pertinent findings except as documented above in the HPI. Review of systems: ROS 14 point review of systems reviewed as best as possible given presentation. Pertinent positive or negative as per HPI or otherwise reviewed as negative - Constitutional Vitals: Temp Pulse Resp BP Pulse Ox 98.0 F 73 20 137/86 96 06/29/17 13:13 06/29/17 13:13 06/29/17 13:13 06/29/17 13:13 06/29/17 13:13 Exam: General - AAO x 3 Psych - Appropriate affect/speech. No agitation Eyes - DEX. Eye lids intact. No scleral icterus Neuro - No gross peripheral or central neuro deficits on inspection Heart - Sinus. RRR. S1 and S2 present. No added HS/murmurs appreciated. Lung - Adequate air entry b/l, No crackles/wheezes appreciated GI - Soft, non-tender. Distended with possible ascites. No hepatosplenomegaly. BS+ - No CVA/suprapubic tenderness or palpable bladder distension Skin - Intact. No rash/petechiae/ecchymosis. +2 bilateral lower extremity edema Internal Med - H&P Results - Labs CBC & Chem 7: 06/29/17 12:03 06/29/17 12:03 - Assessment and plan (1) Anasarca Current Visit: Yes Status: Acute Assessment and plan: Anasarca likely related to volume overload from progressive kidney disease along with cardiac component of right heart failure To Worsening and further progression of disease she was admitted for close inpatient evaluation from Cardiology and nephrology (2) CKD (chronic kidney disease) Current Visit: Yes Status: Acute Assessment and plan: progressive CKD consult renal to assist in eval Will likely need diuretics IV - will have renal assisting in dosing and further management vinayak, 24 hr urine collection for testing - protein, urine lytes, routine screen test UPEP/SPEP/FLC renal US Qualifiers: Chronic kidney disease stage: stage 4 (severe) Qualified Code(s): N18.4 - Chronic kidney disease, stage 4 (severe) (3) Hypothyroid Current Visit: Yes Status: Acute Assessment and plan: has hx of maria. TSH high, check FT4 in a.m. 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 Cards ordered TTE further management pending clinical course No tele in the hospital, therefore unable to order telemetry for monitoring in the setting of low LVEF at [facility] Qualifiers: Cardiomyopathy type: unspecified Qualified Code(s): I42.9 - Cardiomyopathy , unspecified (5) HTN (hypertension) Current Visit: Yes Status: Acute Assessment and plan: hold ACEI/HCTZ pending renal asssessment and diuretic management Qualifiers: Hypertension type: essential hypertension Qualified Code(s): I10 - Essential (primary) hypertension (6) DMII (diabetes mellitus, type 2) Current Visit: Yes Status: Acute Assessment and plan: hypoglycemia at home and not requiring insulin but still uses glyburide 10 bid - possible related to worsening kidney function decrease glyburide to 5mg QD, ISS monitoring Qualifiers: Qualified Code(s): E11.9 - Type 2 diabetes mellitus without complications; Z79.4 - [facility] (current) use of insulin; Z79.4 - [facility] (current) use of insulin; Z79.4 - [facility] (current) use of insulin; 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
[2017-06-29] MEDS ORDERED: hydrALAZINE 25 MG TABLET PO SCH (15:00)
[2017-06-29] MEDS ORDERED: Furosemide 40 MG/4 ML VIAL IVP ONE (15:42)
[2017-06-29 15:44] LABS: Protein/Creatinine Ratio,Urine 0.75 mg/mg (0.00-0.20); Sodium, Urine 77.4 mEq/L
--- NOTE | 2017-06-29 15:50 | Electrocardiograph Report ---
[address] [place], [place] [address] Test Date: 2017-06-29 Pat Name: Marcie Murphy Department: 102 Room: [facility] Gender: F Health Information Manager: : 1975 Requested By: Rishi Price Order Number: [id number] Reading MD: Ambika Haas Measurements Intervals [place] Rate: 74 P: 47 VT: 147 QRS: 77 QRSD: 90 T: 32 QT: 412 QTc: 439 Interpretive Statements SINUS RHYTHM LOW QRS VOLTAGE IN EXTREMITY LEADS [QRS DEFLECTION < 0.5 mV IN LIMB LEADS] Electronically Signed On 06-29-2017 15:49:03 EDT by Ambika Haas
[2017-06-29] MEDS ORDERED: Insulin LISPRO 300 UNITS/3 ML VIAL SQ SCH ×2 (16:30→21:00)
[2017-06-29] MEDS ORDERED: *HR* Heparin 5,000 UNIT/ML VIAL SQ SCH (18:00)
[2017-06-29] MEDS: hydrALAZINE 25 MG TABLET PO SCH (20:44)
[2017-06-29] MEDS: *HR* HYDROcodone/Acet 10/325 mg TABLET PO PRN (20:44)
[2017-06-29] MEDS: Gabapentin 300 MG CAPSULE PO SCH (20:45)
[2017-06-29] MEDS: Insulin LISPRO 300 UNITS/3 ML VIAL SQ SCH (20:58)
[2017-06-29] MEDS ORDERED: Gabapentin 300 MG CAPSULE PO SCH (21:00)
[2017-06-30 05:04] LABS: Calcium 7.5 mg/dL (8.6-10.3)
[2017-06-30] MEDS: *HR* Heparin 5,000 UNIT/ML VIAL SQ SCH ×2 (05:36→17:22)
[2017-06-30] MEDS ORDERED: *HR* GlipiZIDE XL (24 HR) 2.5 MG TABLET PO SCH ×2 (08:00)
[2017-06-30] MEDS: Insulin LISPRO 300 UNITS/3 ML VIAL SQ SCH ×4 (09:52→20:33)
[2017-06-30] MEDS: Gabapentin 300 MG CAPSULE PO SCH ×2 (10:00→20:11)
[2017-06-30] MEDS: hydrALAZINE 25 MG TABLET PO SCH ×3 (10:00→20:11)
--- NOTE | 2017-06-30 10:32 | Nephrology Consult Note ---
Date of Encounter: 06/30/17 Time of Encounter: 10:29 Assessment and Plan (1) KAYA (acute kidney injury) Current Visit: Yes Status: Acute KAYA workup to include: UA (repeat), urine culture, urine eosinophils, CPK, serum uric acid, protein/creatinine ratio. Urine sodium, urine creatinine, renal ultrasound already done Continue strict I/Os Needs renal diet-ordered Avoid nephrotoxins if possible (2) CKD (chronic kidney disease) Current Visit: Yes Status: Acute Quick progressing of kidney disease since June 2016, cause unknown at this time Stage of kidney disease unknown at this time CKD workup to include: PTH, C3 & C4 compliment, Vit D 25-OH, MARSHALL, protein electrophresis, immunofixation urine Qualifiers: Chronic kidney disease stage: unspecified stage Qualified Code(s): N18.9 - Chronic kidney disease, unspecified (3) Anasarca Current Visit: Yes Status: Acute UOP 400ml yesterday; already had 700ml out today History of Present Illness - Reason for Consult Consult date: 06/30/17 - Chief Complaint anasarca, CKD - History of Present Illness Ms Murphy is a 41 year old female with a PMH of Karnia thyroiditis, diabetes , HTN, and cardiomyopathy who was admitted for anasarca. Patient had close to normal kidney function as of last June 2016 (GFR 59); in February GFR was 26-28 and in April down to 19. Patient denies any past medical history or family history of kidney disease, denies frequent NSAID usage, no recent dye exposure or neprhotoxic drugs. Nephrology has been consulted to manage her kidney disease. Past Med Surg Social Fam HX - Past Medical History Medical history: non-contributory, CHF, diabetes, hypertension, other Psychiatric history: depression - Past Surgical History Surgical History: no surgical history, non-contributory - Social History Smoking Status: Former smoker Smokeless Tobacco Status: No Alcohol use: none Drug use: none - Family History Mother Living Status: Hx Family Cancer: Yes Medications and Allergies Carvedilol [Coreg] 50 mg PO BID 06/29/17 [History] Gabapentin [Neurontin] 300 mg PO BID 06/29/17 [History] GlipiZIDE [Glipizide ER] 10 mg PO BID 06/29/17 [History] HYDROcodone/Acet 10/325 mg [[place] 10-325 mg] 2 tab PO TID PRN 06/29/17 [History] Hydralazine HCl 100 mg PO TID 06/29/17 [History] Insulin ASPART [Novolog] 8 unit SQ TIDWM PRN 06/29/17 [History] Insulin Glargine,Hum.rec.anlog [Lantus Solostar] 20 unit SQ HS PRN 06/29/17 [ History] Isosorbide DInitrate [Isosorbide Dinitrate] 30 mg PO TID 06/29/17 [History] Levothyroxine [Synthroid] 50 mcg PO 0630 06/29/17 [History] Lisinopril-HCTZ 10-12.5 [Prinzide 10-12.5] 1 tab PO BID 06/29/17 [History] Sertraline [Zoloft] 100 mg PO DAILY 06/29/17 [History] Torsemide [Demadex] 40 mg PO QID 06/29/17 [History] 3 Allergy/AdvReac Type Severity Reaction Status Date / Time baclofen Allergy Diarrhea Verified 06/29/17 12:45 exenatide [From Byetta] Allergy Diarrhea Verified 06/29/17 12:45 sulfamethoxazole Allergy Rash Verified 06/29/17 12:45 [From Bactrim] trimethoprim [From Bactrim] Allergy Rash Verified 06/29/17 12:45 Exam - Vital Signs Vital signs: Initial Vital Signs Temp Pulse Resp BP Pulse Ox 97.9 F 73 22 149/86 93 06/29/17 11:34 06/29/17 11:34 06/29/17 11:34 06/29/17 11:34 06/29/17 11:34 Vital Signs - Last 8 Hours Temp Pulse Resp BP Pulse Ox 06/30/17 07:00 97.9 F 69 17 135/79 94 06/30/17 04:54 97.9 F 72 18 143/85 94 Intake and Output 06/29/17 06/30/17 06/30/17 23:59 07:59 15:59 Intake Total 25 / 25 150 / 150 Output Total 400 / 400 700 / 700 Balance -375 / -375 -550 / -550 Intake: Oral 25 / 25 150 / 150 Output: Urine 400 / 400 700 / 700 Other: # Voids 0 1 Blood Glucose* 224 116 - General Appearance General appearance: obese EENT: ATNC, mucous membranes moist, hearing intact, vision intact Neck: supple Respiratory: clear Cardiology: edema, normal S1, normal S2 Gastrointestinal: no tenderness, no guarding Integumentary: warm and dry Neurologic: alert and oriented x3 Psychiatric: mood/affect appropriate, cooperative Results - Lab Results 06/29/17 12:03 06/30/17 04:03 Most recent lab results Calcium 7.5 mg/dL (8.6-10.3) L 06/30/17 04:03 Phosphorus 5.3 mg/dL (2.7-4.5) H 06/29/17 12:03 Urine Creatinine 63 mg/dL 06/29/17 12:32 Urine Sodium 77.4 mEq/L 06/29/17 12:32 Urine Total Protein 47 mg/dL (1-14) H 06/29/17 12:32 Consult Discharge Plan - Plan Referrals: Ramiro Vargas DO [Primary Care Provider] -
[2017-06-30] MEDS ORDERED: Perflutren Lipid Microsphere 1.3 ML in 0.9 % Sodium Chloride 8.7 ML IVP ONE (10:39)
--- NOTE | 2017-06-30 11:58 | Internal Med Progress Note ---
<Guzman King - Last Filed: 06/30/17 15:34> Date of Encounter: 06/30/17 Time of Encounter: 13:00 - Assessment and plan (1) Anasarca Current Visit: Yes Status: Acute Assessment and plan: Anasarca likely related to volume overload from progressive kidney disease along with cardiac component of right heart failure. Pericentesis when appropriate. Monitor kidney function closely. (2) Cardiomyopathy Current Visit: Yes Status: Acute Assessment and plan: TTE demonstrates improved EF = 30-35% with hypokinetic wall motion. Pericentesis when appropriate. Continue Coreg, ASA. Qualifiers: Cardiomyopathy type: unspecified Qualified Code(s): I42.9 - Cardiomyopathy , unspecified (3) CKD (chronic kidney disease) Current Visit: Yes Status: Acute Assessment and plan: progressive CKD Continue diuretics IV with renal dosing. renal US demonstrates no evidence of right hydronephrosis without visualization of the left kidney. Small amount of ascites noted. Qualifiers: Chronic kidney disease stage: unspecified stage Qualified Code(s): N18.9 - Chronic kidney disease, unspecified (4) Hypothyroid Current Visit: Yes Status: Acute Assessment and plan: has hx of maria. TSH high, notmal free T4. 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 Continue SSI. D/c glipizide. Monitor with AM labs. Qualifiers: Qualified Code(s): E11.9 - Type 2 diabetes mellitus without complications (7) Heart failure with reduced ejection fraction Current Visit: Yes Status: Acute Assessment and plan: TTE demonstrates improved EF = 30-35% with hypokinetic wall motion. Patient has CKD. No left kidney appreciated in retroperitoneal u/s. Patient unaware of this. Cardio seen. Recommending continued diuresis with close kidney function monitoring. Continue to hold ACEI. Continue Coreg, ASA Pericentesis if appropriate. U/S demonstrates appropriate fluid pockets. Spoke with patient, who declines pericentesis until family returns. [facility] when improved. Patient also reports today that she is in hospice care. Perform pericentesis with consent when appropriate. Qualifiers: Qualified Code(s): I50.20 - Unspecified systolic (congestive) heart failure - Time Spent With Patient Total time spent is greater than 50% in coordination of care (as documented) at patient's floor/unit and/or counseling patient: Greater than 35 minutes - Subjective Interval history: Patient confirms that she is non-compliant with her levothyroxine. She went for Echo today. Denies CP, SOB, Abdominal pain. Gained 30 lbs in the last 2 months. Increased edema in bilateral lower extremities and abdomen. No acute complaints. - Constitutional Vitals: Temp Pulse Resp BP Pulse Ox 98.3 F 72 15 156/88 94 06/30/17 11:00 06/30/17 11:00 06/30/17 11:00 06/30/17 11:06/30/17 07:00 General appearance: Present: A&O X 3, no acute distress, obese - Head Head exam: Present: atraumatic, normocephalic - Eye Eye exam: Present: EOMI, normal appearance, conjuntiva pink, sclera anicteric - Neck Neck exam general surgery: Present: supple, trachea midline. Absent: lymphadenopathy - Respiratory Respiratory exam: Present: CTAB. Absent: accessory muscle use, rales, rhonchi, wheezes - Cardiovascular Cardiovascular exam: Present: distant heart sounds, RRR, +S1, +S2. Absent: diastolic murmur, gallop, rubs, systolic murmur - GI/Abdominal GI/Abdominal exam: Absent: distended, tenderness Additional comments: difficult to auscultate bowel sounds. +anasarca. Increased abdominal girth. - Extremities Exam Extremities exam: Present: pedal edema, warm, radial pulses palpable and symmetrical. Absent: calf tenderness, cyanotic - Neurological Exam Neurological exam: Present: alert, oriented X3, no focal deficits. Absent: pronater drift, facial droop, speech deficit - Skin Skin exam: Present: intact, mottled Internal Medicine: Result - Labs CBC & Chem 7: 06/29/17 12:03 06/30/17 04:03 Labs: BMP 06/30/17 04:03 Sodium 138 Potassium 4.0 Chloride 99 Carbon Dioxide 30 H BUN 91 H Creatinine 3.01 H Glucose 169 H Calcium 7.5 L - ABG Interpretation ABG results: PT/INR, D-dimer PT 13.6 Seconds (9.4-12.1) H 06/29/17 12:03 Consult Discharge Plan - Plan Referrals: Ramiro Vargas DO [Primary Care Provider] - 07/07/17 2:30 pm <Jimbo Houser - Last Filed: 06/30/17 16:20> Date of Encounter: 06/30/17 - Assessment and plan (1) Cardiomyopathy Current Visit: Yes Status: Acute Qualifiers: Cardiomyopathy type: unspecified Qualified Code(s): I42.9 - Cardiomyopathy , unspecified (2) CKD (chronic kidney disease) Current Visit: Yes Status: Acute Qualifiers: Chronic kidney disease stage: unspecified stage Qualified Code(s): N18.9 - Chronic kidney disease, unspecified (3) Hypothyroid Current Visit: Yes Status: Acute Qualifiers: 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 Qualified Code(s): E03.8 - Other specified hypothyroidism; E06.3 - Autoimmune thyroiditis; E06.3 - Autoimmune thyroiditis; E06.3 - Autoimmune thyroiditis (4) HTN (hypertension) Current Visit: Yes Status: Acute Qualifiers: Hypertension type: essential hypertension Qualified Code(s): I10 - Essential (primary) hypertension (5) DMII (diabetes mellitus, type 2) Current Visit: Yes Status: Acute Qualifiers: Qualified Code(s): E11.9 - Type 2 diabetes mellitus without complications (6) Anasarca Current Visit: Yes Status: Acute (7) Heart failure with reduced ejection fraction Current Visit: Yes Status: Acute Qualifiers: Qualified Code(s): I50.20 - Unspecified systolic (congestive) heart failure - Time Spent With Patient Total time spent is greater than 50% in coordination of care (as documented) at patient's floor/unit and/or counseling patient: - Constitutional Vitals: Temp Pulse Resp BP Pulse Ox 98 F 81 18 153/90 97 06/30/17 15:00 06/30/17 15:00 06/30/17 15:00 06/30/17 15:00 06/30/17 15:00 Internal Medicine: Result - Labs CBC & Chem 7: 06/29/17 12:03 06/30/17 04:03 Labs: BMP 06/30/17 04:03 Sodium 138 Potassium 4.0 Chloride 99 Carbon Dioxide 30 H BUN 91 H Creatinine 3.01 H Glucose 169 H Calcium 7.5 L - ABG Interpretation ABG results: PT/INR, D-dimer PT 13.6 Seconds (9.4-12.1) H 06/29/17 12:03 - Impressions Impressions Echocardiogram 06/30/17 14:10 Impressions: LVEF 30-35%. Mildly dilated left ventricle. Global left ventricular systolic dysfunction. Grossly, mildly dilated and hypokinetic right ventricle. Mild tricuspid regurgitation. No pulmonary hypertension identified. Left Ventricular Wall Motion: Rest Echo Findings The apex, apical inferior, mid inferior, basal inferior, apical anterior, mid anterior, basal anterior, apical septal, mid inferior septal, basal inferior septal, apical lateral, mid anterior lateral, basal anterior lateral, mid anterior septal, mid inferior lateral, basal anterior septal and basal inferior lateral howard were hypokinetic. Findings: Study Quality * Technically adequate exam. ECG Findings * Normal sinus rhythm. Left Ventricle * LVEF 30-35%. * Mildly dilated left ventricle. * Global left ventricular systolic dysfunction. Right Ventricle * Grossly, mildly dilated and hypokinetic right ventricle. Left Atrium * Mildly dilated left atrium. Right Atrium * Mildly dilated right atrium. Aortic Valve * Aortic valve not well visualized. * No aortic regurgitation. * No aortic stenosis. Mitral Valve * Normal mitral valve structure and function. * No mitral regurgitation. * No mitral stenosis. Tricuspid Valve * Normal tricuspid valve structure. * Mild tricuspid regurgitation. * No pulmonary hypertension identified. Pulmonic Valve * Pulmonic valve not well visualized. * No pulmonic regurgitation. Aorta * Normally sized aortic root. Pericardium * The pericardium appears normal. IVC * The IVC is not well evaluated. Pulmonary Artery * Normal visualized portions of the main pulmonary artery. - Attending Attestation I examined this patient 06/30, and my medical decision-making was reviewed with the Resident Physician. I agree with the documented findings, disposition and treatment plan as described except to the extent set forth below. 51-year-old female with absent left kidney, cardiomyopathy possibly nonischemic , Hashimotos thyroiditis, who is admitted and being managed for anasarca and fluid overload secondary to CHF exacerbation and possible progression of chronic kidney disease, suspect acute on chronic kidney disease, and uncontrolled hypothyroidism due to noncompliance. The patient is lying down comfortably in bed without any form of distress, she is morbidly obese, chest is clear to auscultation bilaterally, heart sounds are S1 and S2 without any murmurs and regular, abdomen is distended with abdominal wall edema as well as suspected ascites, she has 1+ bilateral pitting pedal edema. Labs and imaging reviewed. Plan is to continue current medications, bedside ultrasound to assess for ascites and to tap if present, review by nephrology is pending, cardio eval is noted, will follow recommendations, Rest of details as in the resident physician's documentation
[2017-06-30 13:17] LABS: Uric Acid 10.9 mg/dL (2.3-7.6)
[2017-06-30] MEDS: Cetirizine HCl 5 MG/5 ML UDC PO SCH (14:37)
[2017-06-30] MEDS: Aspirin 81 MG TAB.CHEW PO SCH (14:38)
--- NOTE | 2017-06-30 14:42 | Cardiology Progress Note ---
Date of Encounter: 06/30/17 Time of Encounter: 14:40 Assessment and Plan (1) KAYA (acute kidney injury) Current Visit: Yes Status: Acute Per cardiology: Per patient and creatinine at [facility] 1.9-2.5. Appears overall worsened since 06/2016 at [facility] (was very mild CKD3 a at that time). Nephrology following. Current GFR 17. RP U/S showed no visualization of Left Kidney. (2) Cardiomyopathy Current Visit: Yes Status: Acute Per Cardiology: TTE 04/27/17 from [facility]: LV mildly dilated, mild concentric LVH, diffuse global hypokinesis, LVEF 25-30%, septal flattening of the interventricular septum consistent with RV volume overload, RV is mildly dilated with mildly reduced global systolic function, RA mildly dilated, mild TR, trivial pericardial effusion. Per review of [facility] records, LHC was not performed due to renal function. Nuclear stress test was performed without evidence of ischemia. Cardiomyopathy thought to be non-ischemic. On coreg in outpateint setting, previously on carolann inhibitor. Current echo shows EF 30-35%, and no pulmonary hypertension, mild TR. On Coreg 50 mg by mouth twice a day. Remains off CAROLANN inhibitor/ARB due to worsening kidney function. Trop negative. Consider catheterization during hospital stay if clinically warranted and once kidney function improves. Net I&O -925ml. CXR ok. BNP only 866. LFTs stable. Clinically appear to be in significant R sided CHF. From cardiology standpoint would recommend diuresis, however discussed with nephrology with recommendations to monitor for now-- will hold off on diuresis for now and reevaluate tomorrow. Of note, it appears patient has been noncompliant with hypothyroidism medication. Additionally, patient apparently previously had LifeVest at one point and had been reportedly enrolled in hospice care. Clinical story overall appears somewhat complicated and confusing with suspected medical noncompliance as a variable in the equation. Recommend diuresis when able, consider potential ischemic evaluation if clinically warranted and appropriate, and long-term will need potential evaluation for ICD. Qualifiers: Cardiomyopathy type: unspecified Qualified Code(s): I42.9 - Cardiomyopathy , unspecified (3) Hypothyroid Current Visit: Yes Status: Acute Per Cardiology: Management per primary service. Reportedly intermittent compliance with regimen. 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 All questions were answered. Thank you for involving us in the care of your patient. Please call with any questions. Subjective Principal diagnosis: Volume Overload Interval history: Patient reports short of breath at rest has slightly improved. She denies any chest pain or palpitations. Reports continues to experience abdominal distention and tightness. Objective Vital Signs, Last 4 Hours Temp Pulse Resp BP 06/30/17 11:00 98.3 F 72 15 156/88 General: Conversant, No Apparent Distress HEENT: Atraumatic, Normocephaly, Mucus Membranes Moist Neck: No JVD, Normal carotid pulses Cardiac: Reg Rate and Rhythm, Normal S1 and S2, No Murmur Lungs: Normal Breath Sounds, No Wheeze, Rales, Rhonchi Neuro: Alert and responsive, No focal deficits noted Abdomen: Soft, Non-Tender, Other (obese, abdominal ascites noted with tightness) Skin: No rashes noted on visualized skin Musculoskeletal: No Chest Wall Tenderness Extremities: No Clubbing, No Cyanosis, Normal Pulses, Other (+2 pitting edema to bilateral lower extremities, right slightly greater than left) Results 06/29/17 12:03 06/30/17 04:03 Lab Results Laboratory Tests 07/27/16 03/04/17 06/29/17 08:10 14:15 12:03 Creatinine 1.03 2.11 H 3.11 H Est GFR (Non-Af Amer) 59 L 26 L 16 L AST 14 ALT 10 Troponin I 0.03 B-Natriuretic Peptide TSH 11.357 H Free T4 PTH Intact 06/29/17 06/30/17 06/30/17 12:03 04:03 12:14 Creatinine 3.01 H Est GFR (Non-Af Amer) 17 L AST ALT Troponin I B-Natriuretic Peptide 866 H TSH Free T4 0.90 PTH Intact 244.6 H ITS Impressions Chest X-Ray 06/29/17 11:42 IMPRESSION: No acute abnormality. D/ / Isael Odonnell MD / Isael Odonnell MD Interpreting Provider: Isael Odonnell MD Retroperitoneum Ultrasound 06/29/17 14:52 IMPRESSION: 1. No evidence of right hydronephrosis without visualization of the left kidney. 2. Small amount of ascites. D/ / Lew Aguilar MD / Lew Aguilar MD Interpreting Provider: Lew Aguilar MD Echocardiogram 06/30/17 14:10 Impressions: LVEF 30-35%. Mildly dilated left ventricle. Global left ventricular systolic dysfunction. Grossly, mildly dilated and hypokinetic right ventricle. Mild tricuspid regurgitation. No pulmonary hypertension identified. Left Ventricular Wall Motion: Rest Echo Findings The apex, apical inferior, mid inferior, basal inferior, apical anterior, mid anterior, basal anterior, apical septal, mid inferior septal, basal inferior septal, apical lateral, mid anterior lateral, basal anterior lateral, mid anterior septal, mid inferior lateral, basal anterior septal and basal inferior lateral howard were hypokinetic. Findings: Study Quality * Technically adequate exam. ECG Findings * Normal sinus rhythm. Left Ventricle * LVEF 30-35%. * Mildly dilated left ventricle. * Global left ventricular systolic dysfunction. Right Ventricle * Grossly, mildly dilated and hypokinetic right ventricle. Left Atrium * Mildly dilated left atrium. Right Atrium * Mildly dilated right atrium. Aortic Valve * Aortic valve not well visualized. * No aortic regurgitation. * No aortic stenosis. Mitral Valve * Normal mitral valve structure and function. * No mitral regurgitation. * No mitral stenosis. Tricuspid Valve * Normal tricuspid valve structure. * Mild tricuspid regurgitation. * No pulmonary hypertension identified. Pulmonic Valve * Pulmonic valve not well visualized. * No pulmonic regurgitation. Aorta * Normally sized aortic root. Pericardium * The pericardium appears normal. IVC * The IVC is not well evaluated. Pulmonary Artery * Normal visualized portions of the main pulmonary artery. Intake & Output 06/27/17 06/28/17 06/29/17 06/30/17 23:59 23:59 23:59 23:59 Intake Total 25 / 25 150 / 150 Output Total 400 / 400 700 / 700 Balance -375 / -375 -550 / -550 Weight 141.521 kg Active Medications Hydrocodone Bitart/Acetaminophen ([place] 10-325 Mg) 2 each PO TID PRN PRN Reason: Pain Stop: 12/29/17 14:12 Last Admin: 06/29/17 20:44 Dose: 2 each Aspirin (Aspirin) 81 mg PO DAILY [facility] Stop: 12/30/17 14:16 Carvedilol (Coreg) 50 mg PO BIDWM [facility] PRN Reason: Protocol Stop: 12/29/17 21:01 Last Admin: 06/30/17 09:59 Dose: 50 mg Cetirizine HCl (Zyrtec) 2.5 mg PO DAILY [facility] Stop: 12/30/17 13:31 Dextrose/Water (Dextrose 50% (Syg)) 25 ml IVP AD PRN PRN Reason: Hypoglycemia Stop: 12/29/17 14:15 Gabapentin (Neurontin) 300 mg PO BID [facility] Stop: 12/29/17 21:01 Last Admin: 06/30/17 10:00 Dose: 300 mg Glucagon (Glucagen) 1 mg IM ONCE PRN PRN Reason: Hypoglycemia Stop: 12/29/17 14:15 Glucose (Gluctose) 15 gm PO ONCE PRN PRN Reason: Hypoglycemia Stop: 12/29/17 14:15 Glucose (Gluctose) 30 gm PO ONCE PRN PRN Reason: Hypoglycemia Stop: 12/29/17 14:15 Heparin Sodium (Porcine) (Heparin) 5,000 unit SQ Q12HR [facility] Stop: 12/29/17 18:01 Last Admin: 06/30/17 05:36 Dose: 5,000 unit Hydralazine HCl (Hydralazine) 100 mg PO TID [facility] Stop: 12/29/17 15:01 Last Admin: 06/30/17 10:00 Dose: 100 mg Dextrose (Dextrose 5%) 1,000 mls @ 100 mls/hr IVC .Q10H PRN PRN Reason: HYPOGLYCEMIA Stop: 12/29/17 14:15 Insulin Human Lispro (Humalog) 0 units SQ TIDAC [facility] PRN Reason: Protocol Stop: 12/29/17 16:31 Last Admin: 06/30/17 12:39 Dose: 2 units Insulin Human Lispro (Humalog) 0 units SQ HS [facility] PRN Reason: Protocol Stop: 12/29/17 21:01 Last Admin: 06/29/17 20:58 Dose: 3 units Levothyroxine Sodium (Synthroid) 50 mcg PO 0630 [facility] Stop: 12/30/17 06:31 Last Admin: 06/30/17 05:35 Dose: 50 mcg Naloxone HCl (Narcan) 0.4 mg IVP Q2MIN PRN PRN Reason: SEE COMMENTS Stop: 12/29/17 14:15 Sertraline HCl (Zoloft) 100 mg PO HS [facility] Stop: 12/29/17 21:01 Last Admin: 06/29/17 22:16 Dose: 100 mg - Imaging and Cardiology Echo: report reviewed - EKG Interpretation EKG results cardiology: other (avg HR 73 on tele, SR) Consult Discharge Plan - Plan Referrals: Ramiro Vargas DO [Primary Care Provider] - 07/07/17 2:30 pm
[2017-06-30] MEDS: *HR* HYDROcodone/Acet 10/325 mg TABLET PO PRN (20:17)
[2017-06-30 23:19] LABS: Bilirubin,Urine Negative (Negative); Blood,Urine Negative (Negative); Clarity,Urine Cloudy (Clear); Color,Urine Yellow (Yellow); Glucose,Urine (UA) Normal (Normal); Ketones,Urine Negative (Negative); Leukocyte Esterase,Urine Negative (Negative); Nitrite,Urine Negative (Negative); Protein,Urine 100 mg/dL (Neg-Trace); Specific Gravity,Urine 1.011 (1.010-1.025); Urobilinogen,Urine Normal (Normal)
[2017-06-30 23:21] LABS: Bacteria,Urine Moderate per hpf (None-Few); Hyaline Casts,Urine None Seen per lpf (None-Few); Squamous Epithelial Cell,Urine Many per lpf (None-Few)
[2017-06-30 23:45] LABS: Protein/Creatinine Ratio,Urine 1.48 mg/mg (0.00-0.20)
[2017-07-01 05:16] LABS: Hematocrit 27.7 % (35.3-44.9); Hemoglobin 8.6 g/dL (11.5-15.4); Mean Corpuscular Hemoglobin 28.5 pg (28.0-33.3); Mean Corpuscular Volume 91.7 fL (83.0-100.0); Mean Platelet Volume 11.5 fL (9.4-12.4); Platelet Count 216 K/mcL (140-400); Red Blood Count 3.02 M/mcL (3.82-4.97); Red Cell Distribution Width 14.1 % (11.5-14.5)
[2017-07-01 05:20] LABS: INR 1.2; Prothrombin Time 13.1 Seconds (9.4-12.1)
[2017-07-01 05:34] LABS: Calcium 7.7 mg/dL (8.6-10.3); Potassium 3.8 mEq/L (3.5-5.1)
[2017-07-01] MEDS: *HR* HYDROcodone/Acet 10/325 mg TABLET PO PRN ×2 (05:43→22:03)
[2017-07-01] MEDS: *HR* Heparin 5,000 UNIT/ML VIAL SQ SCH ×2 (05:44→17:35)
[2017-07-01] MEDS: Insulin LISPRO 300 UNITS/3 ML VIAL SQ SCH ×4 (08:00→22:05)
--- NOTE | 2017-07-01 08:36 | Internal Med Progress Note ---
<Guzman King - Last Filed: 07/01/17 14:47> Date of Encounter: 07/01/17 Time of Encounter: 10:00 - Assessment and plan (1) Anasarca Current Visit: Yes Status: Acute Assessment and plan: Anasarca likely related to volume overload from progressive kidney disease along with cardiac component of right heart failure. IR for possible paracentesis. Monitor kidney function closely. Diuresis when able. (2) Cardiomyopathy Current Visit: Yes Status: Acute Assessment and plan: TTE demonstrates improved EF = 30-35% with hypokinetic wall motion. Pericentesis when appropriate. Continue Coreg, ASA. Qualifiers: Cardiomyopathy type: unspecified Qualified Code(s): I42.9 - Cardiomyopathy , unspecified (3) CKD (chronic kidney disease) Current Visit: No Status: Acute Assessment and plan: progressive CKD Continue diuretics IV with renal dosing. renal US demonstrates no evidence of right hydronephrosis without visualization of the left kidney. Small amount of ascites noted. Qualifiers: Chronic kidney disease stage: unspecified stage Qualified Code(s): N18.9 - Chronic kidney disease, unspecified (4) KAYA (acute kidney injury) Current Visit: Yes Status: Acute Assessment and plan: Nephrology on board. Etiology unclear. Continue to hold fluids and diuretics. Lasix tomorrow if renal function improves. UA unremarkable. Continue strict I/Os Continue Renal diet Avoid nephrotoxins if possible (5) Hypothyroid Current Visit: No Status: Acute Assessment and plan: has hx of maria and appears to be noncompliant. TSH high, notmal free T4. 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 Continue SSI. D/c glipizide. Monitor with AM labs. Qualifiers: Qualified Code(s): E11.9 - Type 2 diabetes mellitus without complications (8) Heart failure with reduced ejection fraction Current Visit: Yes Status: Acute Assessment and plan: Patient's medical history is complicated and is non-compliant with medications. TTE demonstrates improved EF = 30-35% with hypokinetic wall motion. Patient has CKD. No left kidney appreciated in retroperitoneal u/s. Patient unaware of this. Cardio seen. Recommending continued diuresis with close kidney function monitoring. Continue to hold ACEI. Continue Coreg, ASA Pericentesis if appropriate. U/S demonstrates appropriate fluid pockets. IR consulted for possible paracentesis. Diuresis when able. Nephrology and cardiology on board. Agree for ischemic evaluation when able and LHC when improved. Qualifiers: Qualified Code(s): I50.20 - Unspecified systolic (congestive) heart failure - Time Spent With Patient Total time spent is greater than 50% in coordination of care (as documented) at patient's floor/unit and/or counseling patient: Greater than 35 minutes - Subjective Interval history: Patient is lying comfortably in bed. Reports that she slept well. She has no acute complaints. No difficulty tolerating PO intake. Voiding without difficulty. Denies chest pain, SOB, or cough. - Constitutional Vitals: Temp Pulse Resp BP Pulse Ox 98.1 F 66 16 123/73 92 07/01/17 06:47 07/01/17 06:47 07/01/17 06:47 07/01/17 06:47 07/01/17 06:47 General appearance: Present: A&O X 3, no acute distress, obese - Head Head exam: Present: atraumatic, normocephalic - Eye Eye exam: Present: PERRL, conjuntiva pink, sclera anicteric Pupils: Present: PERRL - Neck Neck exam general surgery: Present: supple, trachea midline. Absent: lymphadenopathy - Respiratory Respiratory exam: Present: CTAB. Absent: accessory muscle use, rales, rhonchi, wheezes - Cardiovascular Cardiovascular exam: Present: RRR, +S1, +S2. Absent: diastolic murmur, gallop, rubs, systolic murmur - GI/Abdominal GI/Abdominal exam: Present: diminished bowel sounds, soft. Absent: distended, tenderness Additional comments: anasarca. - Extremities Exam Extremities exam: Present: warm, radial pulses palpable and symmetrical. Absent : calf tenderness, cyanotic, pedal edema - Neurological Exam Neurological exam: Present: alert, oriented X3, no focal deficits. Absent: pronater drift, facial droop, speech deficit - Skin Skin exam: Present: intact, normal color, warm Internal Medicine: Result - Labs CBC & Chem 7: 07/01/17 04:29 07/01/17 04:29 Labs: Short CBC 07/01/17 Range/Units 04:29 WBC 5.1 (4.3-11.1) K/mcL Hgb 8.6 L (11.5-15.4) g/dL Hct 27.7 L (35.3-44.9) % Plt Count 216 (140-400) K/mcL BMP 07/01/17 04:29 Sodium 137 Potassium 3.8 Chloride 98 Carbon Dioxide 28 BUN 92 H Creatinine 2.88 H Glucose 131 H Calcium 7.7 L Urine 06/30/17 Range/Units 23:05 Urine Color Yellow (Yellow) Urine Clarity Cloudy A (Clear) Urine pH 7.0 (5.0-8.0) pH Units Ur Specific [place] 1.011 (1.010-1.025) Urine Protein 100 H (Neg-Trace) mg/dL Urine Glucose (UA) Normal (Normal) mg/dL - ABG Interpretation ABG results: PT/INR, D-dimer PT 13.1 Seconds (9.4-12.1) H 07/01/17 04:29 - Impressions Impressions Echocardiogram 06/30/17 14:10 Impressions: LVEF 30-35%. Mildly dilated left ventricle. Global left ventricular systolic dysfunction. Grossly, mildly dilated and hypokinetic right ventricle. Mild tricuspid regurgitation. No pulmonary hypertension identified. Left Ventricular Wall Motion: Rest Echo Findings The apex, apical inferior, mid inferior, basal inferior, apical anterior, mid anterior, basal anterior, apical septal, mid inferior septal, basal inferior septal, apical lateral, mid anterior lateral, basal anterior lateral, mid anterior septal, mid inferior lateral, basal anterior septal and basal inferior lateral howard were hypokinetic. Findings: Study Quality * Technically adequate exam. ECG Findings * Normal sinus rhythm. Left Ventricle * LVEF 30-35%. * Mildly dilated left ventricle. * Global left ventricular systolic dysfunction. Right Ventricle * Grossly, mildly dilated and hypokinetic right ventricle. Left Atrium * Mildly dilated left atrium. Right Atrium * Mildly dilated right atrium. Aortic Valve * Aortic valve not well visualized. * No aortic regurgitation. * No aortic stenosis. Mitral Valve * Normal mitral valve structure and function. * No mitral regurgitation. * No mitral stenosis. Tricuspid Valve * Normal tricuspid valve structure. * Mild tricuspid regurgitation. * No pulmonary hypertension identified. Pulmonic Valve * Pulmonic valve not well visualized. * No pulmonic regurgitation. Aorta * Normally sized aortic root. Pericardium * The pericardium appears normal. IVC * The IVC is not well evaluated. Pulmonary Artery * Normal visualized portions of the main pulmonary artery. Consult Discharge Plan - Plan Referrals: Ramiro aVrgas DO [Primary Care Provider] - 07/07/17 2:30 pm <Jimbo Houser - Last Filed: 07/01/17 18:12> Date of Encounter: 07/01/17 - Assessment and plan (1) Cardiomyopathy Current Visit: Yes Status: Acute Qualifiers: Cardiomyopathy type: unspecified Qualified Code(s): I42.9 - Cardiomyopathy , unspecified (2) KAYA (acute kidney injury) Current Visit: Yes Status: Acute (3) CKD (chronic kidney disease) Current Visit: No Status: Acute Qualifiers: Chronic kidney disease stage: unspecified stage Qualified Code(s): N18.9 - Chronic kidney disease, unspecified (4) Hypothyroid Current Visit: No Status: Acute Qualifiers: 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 Qualified Code(s): E03.8 - Other specified hypothyroidism; E06.3 - Autoimmune thyroiditis; E06.3 - Autoimmune thyroiditis; E06.3 - Autoimmune thyroiditis (5) HTN (hypertension) Current Visit: Yes Status: Acute Qualifiers: Hypertension type: essential hypertension Qualified Code(s): I10 - Essential (primary) hypertension (6) DMII (diabetes mellitus, type 2) Current Visit: Yes Status: Acute Qualifiers: Qualified Code(s): E11.9 - Type 2 diabetes mellitus without complications (7) Anasarca Current Visit: Yes Status: Acute (8) Heart failure with reduced ejection fraction Current Visit: Yes Status: Acute Qualifiers: Qualified Code(s): I50.20 - Unspecified systolic (congestive) heart failure - Time Spent With Patient Total time spent is greater than 50% in coordination of care (as documented) at patient's floor/unit and/or counseling patient: - Constitutional Vitals: Temp Pulse Resp BP Pulse Ox 97.7 F 75 15 146/82 99 07/01/17 16:00 07/01/17 16:00 07/01/17 16:00 07/01/17 16:00 07/01/17 16:00 Internal Medicine: Result - Labs CBC & Chem 7: 07/01/17 04:29 07/01/17 04:29 Labs: Short CBC 07/01/17 Range/Units 04:29 WBC 5.1 (4.3-11.1) K/mcL Hgb 8.6 L (11.5-15.4) g/dL Hct 27.7 L (35.3-44.9) % Plt Count 216 (140-400) K/mcL BMP 07/01/17 04:29 Sodium 137 Potassium 3.8 Chloride 98 Carbon Dioxide 28 BUN 92 H Creatinine 2.88 H Glucose 131 H Calcium 7.7 L Urine 06/30/17 Range/Units 23:05 Urine Color Yellow (Yellow) Urine Clarity Cloudy A (Clear) Urine pH 7.0 (5.0-8.0) pH Units Ur Specific [place] 1.011 (1.010-1.025) Urine Protein 100 H (Neg-Trace) mg/dL Urine Glucose (UA) Normal (Normal) mg/dL - ABG Interpretation ABG results: PT/INR, D-dimer PT 13.1 Seconds (9.4-12.1) H 07/01/17 04:29 - Impressions Impressions Paracentesis Ultrasound 07/01/17 00:00 IMPRESSION: Successful ultrasound guided paracentesis. D/ / William Couch MD / William Couch MD Interpreting Provider: William Couch MD Abdomen/Pelvis CT 07/01/17 11:38 IMPRESSION: 1. Large volume of intra- abdominal and intrapelvic ascites of unclear etiology. 2. Cholelithiasis. 3. No evidence of bowel obstruction or free air. 4. Bilateral pleural effusions and bibasilar atelectasis noted, right greater than left. 5. Diffuse body wall edema concerning for anasarca. D/ / Erick Pierson MD / Erick Pierson MD Interpreting Provider: Erick Pierson MD - Attending Attestation I examined this patient 07/01, and my medical decision-making was reviewed with the Resident Physician. I agree with the documented findings, disposition and treatment plan as described except to the extent set forth below. 51-year-old female with cardiomyopathy possibly nonischemic, Hashimotos thyroiditis, who is admitted and being managed for anasarca and fluid overload secondary to CHF exacerbation and possible progression of chronic kidney disease , suspect acute on chronic kidney disease, and uncontrolled hypothyroidism due to noncompliance. The patient is lying down comfortably in bed without any form of distress, she is morbidly obese, chest is clear to auscultation bilaterally, heart sounds are S1 and S2 without any murmurs and regular, abdomen is distended with abdominal wall edema as well as suspected ascites, she has 1+ bilateral pitting pedal edema. Labs and imaging reviewed. Abdomen CT done today shows presence of both kidneys. Plan is to continue Lasix at 80 mg IV daily, nephrology and cardio eval is noted , will follow recommendations, s/p paracenternsis, 500 cc of ascitic fluid removed Rest of details as in the resident physician's documentation
[2017-07-01] MEDS: hydrALAZINE 25 MG TABLET PO SCH ×3 (10:23→22:02)
[2017-07-01] MEDS: Gabapentin 300 MG CAPSULE PO SCH ×2 (10:23→22:02)
[2017-07-01] MEDS: Aspirin 81 MG TAB.CHEW PO SCH (10:23)
[2017-07-01] MEDS: Cetirizine HCl 5 MG/5 ML UDC PO SCH (10:24)
[2017-07-01 15:17] LABS: Total Volume 24 Hour,Urine 1.6 Liters (0.60-1.60)
--- NOTE | 2017-07-01 15:18 | Cardiology Progress Note ---
Date of Encounter: 07/01/17 Time of Encounter: 15:16 Assessment and Plan (1) CHF (congestive heart failure), NYHA class III Current Visit: Yes Status: Acute Per cardiology: Admitted with acute systolic CHF. known cardiomyopathy. EF previously 18% at [facility] per patient. She was following with [facility] CHF clinic. Due to renal insufficiency she has not underwent LHC. Previous stress test was negative. Current echo shows EF 30-35%, and no pulmonary hypertension, mild TR. On Coreg 50 mg by mouth twice a day. Remains off CAROLANN inhibitor/ARB due to worsening kidney function. Reports 30 pound weight gain in 2 months, reports 150 pounds weight gain in 6 months. Chest x-ray with no acute process. BNP 866. CT shows anasarca and ascites. S/p paracentesis with 550 ml removed. Neprology following for acute on chronic kidney disease. Appreciate recommendations. Lasix held yesterday. Ok to restart if kidney function improved per nephrology. Was on torsemide 80mg BID at home. She will receive 80 mg IV lasix today. Low sodium diet reviewed. Diet discussed and dietary indescretions reviewed. Patient eats alot of crackers and peanut butter. [employer] Super[employer] consulted. Suspect bi-ventricular heart failure complicated by a/CKD. Continue strict I&O and daily weights. Currently net negative 1980 ml. Qualifiers: Congestive heart failure type: systolic Congestive heart failure chronicity : acute on chronic Qualified Code(s): I50.23 - Acute on chronic systolic ( congestive) heart failure (2) KAYA (acute kidney injury) Current Visit: Yes Status: Acute Per cardiology: Acute on chronic kidney disease. Per patient and baseline Scr 1.9-2.5. Nephrology following. Appreciate input. Discussion w patient/family: The assessment and plan as outlined above was discussed with the patient and/or family members who expressed understanding and agreement. All questions were answered. Thank you for involving us in the care of your patient. Please call with any questions. Subjective Principal diagnosis: Volume Overload Interval history: Patient reports back pain resolved after paracentesis. 550ml abdomenal fluid removed. Objective Vital Signs, Last 4 Hours Temp Pulse Resp BP Pulse Ox 07/01/17 11:37 97.3 F L 67 16 163/93 94 General: Conversant, No Apparent Distress HEENT: Atraumatic, Normocephaly, Mucus Membranes Moist Neck: No JVD, Normal carotid pulses Cardiac: Reg Rate and Rhythm, Normal S1 and S2, No Murmur Lungs: Normal Breath Sounds, No Wheeze, Rales, Rhonchi Neuro: Alert and responsive, No focal deficits noted Abdomen: Soft, Non-Tender Skin: No rashes noted on visualized skin Musculoskeletal: No Chest Wall Tenderness Extremities: No Clubbing, No Cyanosis, Normal Pulses, Other (genralized edema, 2 + in BLE ) Results 07/01/17 04:29 07/01/17 04:29 Lab Results 07/01/17 07/01/17 07/01/17 04:29 04:29 04:29 WBC 5.1 Hgb 8.6 L Hct 27.7 L Plt Count 216 INR 1.2 Sodium 137 Potassium 3.8 Chloride 98 Carbon Dioxide 28 BUN 92 H Creatinine 2.88 H Glucose 131 H Calcium 7.7 L - Imaging and Cardiology Echo: report reviewed - EKG Interpretation EKG results cardiology: personally reviewed Consult Discharge Plan - Plan Referrals: Ramiro Vargas DO [Primary Care Provider] - 07/07/17 2:30 pm
[2017-07-01] MEDS: Furosemide 40 MG/4 ML VIAL IVP SCH (15:45)
[2017-07-01 15:51] LABS: Protein/Creatinine Ratio,Urine 1.22 mg/mg (0.00-0.20)
--- NOTE | 2017-07-01 18:18 | Nephrology Progress Note ---
Date of Encounter: 07/01/17 Time of Encounter: 16:45 - Assessment and Plan (1) KAYA (acute kidney injury) Status: Acute Trending better. Volume status, according to the pt, is improved. Cont Current Care. No indications for CUSTODIAL AIDE. Subjective Principal diagnosis: Volume Overload Interval history: Pt was s/e. She affirmed having chronic edema, but felt as though she were improving. Objective - Vital Signs Vital signs: Vital Signs Temp Pulse Resp BP Pulse Ox 07/01/17 16:00 97.7 F 75 15 146/82 99 07/01/17 15:59 75 173/101 07/01/17 11:37 97.3 F L 67 16 163/93 94 07/01/17 06:47 98.1 F 66 16 123/73 92 07/01/17 04:55 98.1 F 67 18 120/68 98 06/30/17 23:17 98.1 F 73 18 144/72 96 06/30/17 20:10 96 06/30/17 18:56 98.1 F 75 18 159/89 96 Intake and Output 07/01/17 07/01/17 07/01/17 07:59 15:59 23:59 Intake Total 300 / 300 120 / 120 120 / 120 Output Total 425 / 425 150 / 150 200 / 200 Balance -125 / -125 -30 / -30 -80 / -80 Intake: Oral 300 / 300 120 / 120 120 / 120 Output: Urine 425 / 425 150 / 150 200 / 200 Other: Meal Lunch Dinner Percent of Meal Consumed 25% 5% Weight 139.5 kg Blood Glucose* 119 136 170 Patient Weight 07/01/17 23:59 Weight 139.5 kg - General Appearance General appearance: Present: well-developed, well-nourished, appears started age , obese EENT: Present: ATNC, PERRL Neck: Present: supple Respiratory: Present: clear Cardiology: Present: edema, normal S1, normal S2 Gastrointestinal: Present: normoactive bowel sounds, no tenderness, obese Integumentary: Present: warm and dry Neurologic: Present: no focal deficit, no asterixis, alert and oriented x3 Musculoskeletal: Present: no erythema, no cyanosis, no clubbing Psychiatric: Present: mood/affect appropriate, cooperative - Lab 07/03/17 04:33 07/03/17 04:33 Most recent lab results Calcium 7.7 mg/dL (8.6-10.3) L 07/01/17 04:29 Phosphorus 5.3 mg/dL (2.7-4.5) H 06/29/17 12:03 Urine Creatinine 81 mg/dL 06/30/17 23:05 Ur Total Protein 24 Hr 1168 mg/day (50-80) H 06/30/17 21:55 Urine Sodium 77.4 mEq/L 06/29/17 12:32 Urine Total Protein 120 mg/dL (1-14) H 06/30/17 23:05 Consult Discharge Plan - Plan Instructions: Furosemide (By mouth), Heart Failure (DC), Hypothyroidism (DC), Diabetes Mellitus Type 2 in Adults (DC), Chronic Obstructive Pulmonary Disease ( DC), Chronic Hypertension (DC), Edema (DC) Referrals: Timo Bravo CNP [Advanced Practice Nurse] - Ramiro Vargas DO [Primary Care Provider] - 07/07/17 2:30 pm Prescriptions: Furosemide [Lasix] 80 mg PO DAILY #30 vial
[2017-07-02 05:44] LABS: Hematocrit 27.7 % (35.3-44.9); Hemoglobin 8.5 g/dL (11.5-15.4); Mean Corpuscular HGB Conc 30.7 g/dL (31.6-35.5); Mean Corpuscular Hemoglobin 28.1 pg (28.0-33.3); Mean Corpuscular Volume 91.7 fL (83.0-100.0); Platelet Count 203 K/mcL (140-400); Red Blood Count 3.02 M/mcL (3.82-4.97)
[2017-07-02 06:08] LABS: Calcium 7.7 mg/dL (8.6-10.3); Potassium 3.8 mEq/L (3.5-5.1)
[2017-07-02] MEDS: *HR* Heparin 5,000 UNIT/ML VIAL SQ SCH ×2 (06:32→19:01)
--- NOTE | 2017-07-02 07:50 | Cardiology Progress Note ---
Date of Encounter: 07/02/17 Time of Encounter: 07:50 Assessment and Plan (1) KAYA (acute kidney injury) Current Visit: Yes Status: Acute Per cardiology: Acute on chronic kidney disease. Kidney fxn improving. Per patient and baseline Scr 1.9-2.5. Nephrology following. (2) Cardiomyopathy Current Visit: Yes Status: Acute Per Cardiology: TTE 04/27/17 from [facility]: LVEF 25-30%, septal flattening of the interventricular septum consistent with RV volume overload, RV is mildly dilated with mildly reduced global systolic function. Per review of [facility] records, LHC was not performed due to renal function. Nuclear stress test was performed without evidence of ischemia. Cardiomyopathy thought to be non-ischemic. Was on coreg in outpatient setting, previously on carolann inhibitor. In acute on chronic R sided CHF. Current echo shows EF 30-35%, no pulmonary hypertension, mild TR. On Coreg 50 mg by mouth twice a day. Remains off CAROLANN inhibitor/ARB due to worsening kidney function. Trop negative. Had paracentesis with 500ml removal. Now on IV lasix 80mg daily. Total Net I&O -4210ml. CXR ok. BNP 866. LFTs stable. Discussed with Nephrology, no recs for LHC at this juncture. Can re-evaluate in outpatient setting if deemed clinically appropriate. Of note, it appears patient has been noncompliant with hypothyroidism medication. Additionally, patient apparently previously had LifeVest at one point and had been reportedly enrolled in hospice care. Clinical story overall appears somewhat complicated and confusing with suspected medical noncompliance as a variable in the equation. Long-term will need potential evaluation for ICD in outpatient setting. Qualifiers: Cardiomyopathy type: unspecified Qualified Code(s): I42.9 - Cardiomyopathy , unspecified (3) Hypothyroid Current Visit: No Status: Acute Per Cardiology: Management per primary service. Reportedly intermittent compliance with regimen. 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 All questions were answered. Thank you for involving us in the care of your patient. Please call with any questions. Subjective Principal diagnosis: Volume Overload Interval history: Patient reports shortness of breath, abdominal distention, bilateral lower swelling continues to improve. She denies any chest pain, palpitations, any active bleeding or blood loss. Reports had 500 mL of fluid removed. Objective Vital Signs, Last 4 Hours Temp Pulse Resp BP Pulse Ox 07/02/17 06:41 97.9 F 66 17 138/80 95 07/02/17 04:18 97.7 F 68 18 134/96 94 General: Conversant, No Apparent Distress HEENT: Atraumatic, Normocephaly, Mucus Membranes Moist Neck: No JVD, Normal carotid pulses Cardiac: Reg Rate and Rhythm, Normal S1 and S2, No Murmur Lungs: Normal Breath Sounds, No Wheeze, Rales, Rhonchi Neuro: Alert and responsive, No focal deficits noted Abdomen: Soft, Non-Tender, Other (obese, large ascites) Skin: No rashes noted on visualized skin Musculoskeletal: No Chest Wall Tenderness Extremities: No Clubbing, No Cyanosis, Normal Pulses, Other (+2 pitting edema bilateral LE) Results 07/02/17 05:29 07/02/17 05:29 Lab Results Laboratory Tests 07/02/17 07/02/17 07/02/17 05:29 05:29 05:29 Hgb 8.5 L Hct 27.7 L Creatinine 2.79 H Est GFR (Non-Af Amer) 19 L B-Natriuretic Peptide 930 H ITS Impressions Chest X-Ray 06/29/17 11:42 IMPRESSION: No acute abnormality. D/ / Isael Odonnell MD / Isael Odonnell MD Interpreting Provider: Isael Odonnell MD Retroperitoneum Ultrasound 06/29/17 14:52 IMPRESSION: 1. No evidence of right hydronephrosis without visualization of the left kidney. 2. Small amount of ascites. D/ / Lew Aguilar MD / Lew Aguilar MD Interpreting Provider: Lew Aguilar MD Echocardiogram 06/30/17 14:10 Impressions: LVEF 30-35%. Mildly dilated left ventricle. Global left ventricular systolic dysfunction. Grossly, mildly dilated and hypokinetic right ventricle. Mild tricuspid regurgitation. No pulmonary hypertension identified. Left Ventricular Wall Motion: Rest Echo Findings The apex, apical inferior, mid inferior, basal inferior, apical anterior, mid anterior, basal anterior, apical septal, mid inferior septal, basal inferior septal, apical lateral, mid anterior lateral, basal anterior lateral, mid anterior septal, mid inferior lateral, basal anterior septal and basal inferior lateral howard were hypokinetic. Findings: Study Quality * Technically adequate exam. ECG Findings * Normal sinus rhythm. Left Ventricle * LVEF 30-35%. * Mildly dilated left ventricle. * Global left ventricular systolic dysfunction. Right Ventricle * Grossly, mildly dilated and hypokinetic right ventricle. Left Atrium * Mildly dilated left atrium. Right Atrium * Mildly dilated right atrium. Aortic Valve * Aortic valve not well visualized. * No aortic regurgitation. * No aortic stenosis. Mitral Valve * Normal mitral valve structure and function. * No mitral regurgitation. * No mitral stenosis. Tricuspid Valve * Normal tricuspid valve structure. * Mild tricuspid regurgitation. * No pulmonary hypertension identified. Pulmonic Valve * Pulmonic valve not well visualized. * No pulmonic regurgitation. Aorta * Normally sized aortic root. Pericardium * The pericardium appears normal. IVC * The IVC is not well evaluated. Pulmonary Artery * Normal visualized portions of the main pulmonary artery. Paracentesis Ultrasound 07/01/17 00:00 IMPRESSION: Successful ultrasound guided paracentesis. D/ / William Couch MD / William Couch MD Interpreting Provider: William Couch MD Abdomen/Pelvis CT 07/01/17 11:38 IMPRESSION: 1. Large volume of intra- abdominal and intrapelvic ascites of unclear etiology. 2. Cholelithiasis. 3. No evidence of bowel obstruction or free air. 4. Bilateral pleural effusions and bibasilar atelectasis noted, right greater than left. 5. Diffuse body wall edema concerning for anasarca. D/ / Erick Pierson MD / Erick Pierson MD Interpreting Provider: Erick Pierson MD Intake & Output 06/29/17 06/30/17 07/01/17 07/02/17 23:59 23:59 23:59 23:59 Intake Total 25 / 25 150 / 150 540 / 540 50 / 50 Output Total 400 / 400 1600 / 1600 2175 / 2175 800 / 800 Balance -375 / -375 -1450 / -1450 -1635 / -1635 -750 / -750 Weight 141.521 kg 139.5 kg 139 kg Active Medications Hydrocodone Bitart/Acetaminophen ([place] 10-325 Mg) 2 each PO TID PRN PRN Reason: Pain Stop: 12/29/17 14:12 Last Admin: 07/01/17 22:03 Dose: 2 each Aspirin (Aspirin) 81 mg PO DAILY BOWEN Stop: 12/30/17 14:16 Last Admin: 07/01/17 10:23 Dose: 81 mg Carvedilol (Coreg) 50 mg PO BIDWM BOWEN PRN Reason: Protocol Stop: 12/29/17 21:01 Last Admin: 07/01/17 17:35 Dose: 50 mg Cetirizine HCl (Zyrtec) 2.5 mg PO DAILY BOWEN Stop: 12/30/17 13:31 Last Admin: 07/01/17 10:24 Dose: 2.5 mg Dextrose/Water (Dextrose 50% (Syg)) 25 ml IVP AD PRN PRN Reason: Hypoglycemia Stop: 12/29/17 14:15 Furosemide (Lasix) 80 mg IVP DAILY BOWEN Stop: 12/31/17 13:01 Last Admin: 07/01/17 15:45 Dose: 80 mg Gabapentin (Neurontin) 300 mg PO BID BOWEN Stop: 12/29/17 21:01 Last Admin: 07/01/17 22:02 Dose: 300 mg Glucagon (Glucagen) 1 mg IM ONCE PRN PRN Reason: Hypoglycemia Stop: 12/29/17 14:15 Glucose (Gluctose) 15 gm PO ONCE PRN PRN Reason: Hypoglycemia Stop: 12/29/17 14:15 Glucose (Gluctose) 30 gm PO ONCE PRN PRN Reason: Hypoglycemia Stop: 12/29/17 14:15 Heparin Sodium (Porcine) (Heparin) 5,000 unit SQ Q12HR BOWEN Stop: 12/29/17 18:01 Last Admin: 07/02/17 06:32 Dose: Not Given Hydralazine HCl (Hydralazine) 100 mg PO TID [facility] Stop: 12/29/17 15:01 Last Admin: 07/01/17 22:02 Dose: 100 mg Dextrose (Dextrose 5%) 1,000 mls @ 100 mls/hr IVC .Q10H PRN PRN Reason: HYPOGLYCEMIA Stop: 12/29/17 14:15 Insulin Human Lispro (Humalog) 0 units SQ TIDAC BOWEN PRN Reason: Protocol Stop: 12/29/17 16:31 Last Admin: 07/01/17 17:37 Dose: 2 units Insulin Human Lispro (Humalog) 0 units SQ HS BOWEN PRN Reason: Protocol Stop: 12/29/17 21:01 Last Admin: 07/01/17 22:05 Dose: Not Given Levothyroxine Sodium (Synthroid) 50 mcg PO 0630 [facility] Stop: 12/30/17 06:31 Last Admin: 07/02/17 05:26 Dose: 50 mcg Naloxone HCl (Narcan) 0.4 mg IVP Q2MIN PRN PRN Reason: SEE COMMENTS Stop: 12/29/17 14:15 Sertraline HCl (Zoloft) 100 mg PO HS [facility] Stop: 12/29/17 21:01 Last Admin: 07/01/17 22:02 Dose: 100 mg Consult Discharge Plan - Plan Referrals: Ramiro Vargas DO [Primary Care Provider] - 07/07/17 2:30 pm
[2017-07-02] MEDS: Cetirizine HCl 5 MG/5 ML UDC PO SCH (08:53)
[2017-07-02] MEDS: Gabapentin 300 MG CAPSULE PO SCH ×2 (08:54→20:54)
[2017-07-02] MEDS: Aspirin 81 MG TAB.CHEW PO SCH (08:54)
[2017-07-02] MEDS: hydrALAZINE 25 MG TABLET PO SCH ×3 (08:54→20:54)
[2017-07-02] MEDS: Furosemide 40 MG/4 ML VIAL IVP SCH (08:55)
[2017-07-02] MEDS: Insulin LISPRO 300 UNITS/3 ML VIAL SQ SCH ×4 (08:55→21:01)
[2017-07-02] MEDS: *HR* HYDROcodone/Acet 10/325 mg TABLET PO PRN ×2 (09:02→19:05)
--- NOTE | 2017-07-02 09:32 | Internal Med Progress Note ---
<Guzman King - Last Filed: 07/02/17 12:12> Date of Encounter: 07/02/17 Time of Encounter: 09:30 - Assessment and plan (1) Anasarca Current Visit: Yes Status: Acute Assessment and plan: Anasarca likely related to volume overload from progressive kidney disease along with cardiac component of right heart failure. s/p paracentesis -4610ml balance Monitor kidney function closely. Continue light diuresis. (2) Cardiomyopathy Current Visit: Yes Status: Acute Assessment and plan: TTE demonstrates improved EF = 30-35% with hypokinetic wall motion. [facility] likely outpatient Continue Coreg, ASA. Qualifiers: Cardiomyopathy type: unspecified Qualified Code(s): I42.9 - Cardiomyopathy , unspecified (3) CKD (chronic kidney disease) Current Visit: No Status: Acute Assessment and plan: improved. progressive CKD Continue diuretics IV with renal dosing. Qualifiers: Chronic kidney disease stage: unspecified stage Qualified Code(s): N18.9 - Chronic kidney disease, unspecified (4) KAYA (acute kidney injury) Current Visit: Yes Status: Acute Assessment and plan: Slowly improving with light diuresis. Nephrology on board. Etiology unclear. UA unremarkable. Continue strict I/Os Continue Renal diet (5) Hypothyroid Current Visit: No Status: Acute Assessment and plan: has hx of maria and appears to be noncompliant. TSH high, notmal free T4. Continue levothyroxine in AM Qualifiers: 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 Qualified Code(s): E03.8 - Other specified hypothyroidism; E06.3 - Autoimmune thyroiditis; E06.3 - Autoimmune thyroiditis; E06.3 - Autoimmune thyroiditis (6) HTN (hypertension) Current Visit: Yes Status: Chronic Assessment and plan: hold ACEI/HCTZ pending renal asssessment and diuretic management Qualifiers: Hypertension type: essential hypertension Qualified Code(s): I10 - Essential (primary) hypertension (7) DMII (diabetes mellitus, type 2) Current Visit: Yes Status: Acute Assessment and plan: hypoglycemia at home. Continue SSI. D/c glipizide. Monitor with AM labs. Qualifiers: Qualified Code(s): E11.9 - Type 2 diabetes mellitus without complications (8) Heart failure with reduced ejection fraction Current Visit: Yes Status: Acute Assessment and plan: Patient's medical history is complicated and is non-compliant with medications. TTE demonstrates improved EF = 30-35% with hypokinetic wall motion. Patient has CKD. Nephrology recommends continued diuresis with close kidney function monitoring. They do not recommend inpatient renal biopsy due to obesity. Continue to hold ACEI. Continue Coreg, ASA Pericentesis removed 500ml yesterday. Total negative balance of ~4600ml since admission. Continue with light diuresis. Plan for [facility] outpatient due to nephrology recommendations of avoiding nephrotoxins. Possible discharge tomorrow with outpatient cardio and nephro follow-up Qualifiers: Qualified Code(s): I50.20 - Unspecified systolic (congestive) heart failure - Time Spent With Patient Total time spent is greater than 50% in coordination of care (as documented) at patient's floor/unit and/or counseling patient: Greater than 35 minutes - Subjective Interval history: Patient is sitting comfortably by bedside eating breakfast. She reports feeling much better after paracentesis. Tolerating PO intake well. Denies f/c/n/v. Overall improved. No overnight events. No acute complaints - Constitutional Vitals: Temp Pulse Resp BP Pulse Ox 97.9 F 66 17 138/80 95 07/02/17 06:41 07/02/17 06:41 07/02/17 06:41 07/02/17 06:41 07/02/17 06:41 General appearance: Present: A&O X 3, no acute distress, obese - Head Head exam: Present: atraumatic, normocephalic - Eye Eye exam: Present: EOMI, conjuntiva pink, sclera anicteric - Neck Neck exam general surgery: Present: supple, trachea midline. Absent: lymphadenopathy - Respiratory Respiratory exam: Present: CTAB. Absent: accessory muscle use, rales, rhonchi, wheezes - Cardiovascular Cardiovascular exam: Present: RRR, +S1, +S2. Absent: diastolic murmur, gallop, rubs, systolic murmur - GI/Abdominal GI/Abdominal exam: Present: hypoactive bowel sounds, no peritoneal signs. Absent: distended, tenderness Additional comments: anasarca. left abdominal incision site clean and dry - Extremities Exam Extremities exam: Present: warm, radial pulses palpable and symmetrical. Absent : calf tenderness, cyanotic, pedal edema - Incison Incision: Present: clean and dry, intact - Neurological Exam Neurological exam: Present: alert, oriented X3, no focal deficits. Absent: pronater drift, facial droop, speech deficit - Skin Skin exam: Present: dry, intact Internal Medicine: Result - Labs CBC & Chem 7: 07/02/17 05:29 07/02/17 05:29 Labs: Short CBC 07/02/17 Range/Units 05:29 WBC 4.6 (4.3-11.1) K/mcL Hgb 8.5 L (11.5-15.4) g/dL Hct 27.7 L (35.3-44.9) % Plt Count 203 (140-400) K/mcL BMP 07/02/17 05:29 Sodium 137 Potassium 3.8 Chloride 99 Carbon Dioxide 28 BUN 90 H Creatinine 2.79 H Glucose 184 H Calcium 7.7 L - ABG Interpretation ABG results: PT/INR, D-dimer PT 13.1 Seconds (9.4-12.1) H 07/01/17 04:29 - Impressions Impressions Paracentesis Ultrasound 07/01/17 00:00 IMPRESSION: Successful ultrasound guided paracentesis. D/ / William Couch MD / William Couch MD Interpreting Provider: William Couch MD Abdomen/Pelvis CT 07/01/17 11:38 IMPRESSION: 1. Large volume of intra- abdominal and intrapelvic ascites of unclear etiology. 2. Cholelithiasis. 3. No evidence of bowel obstruction or free air. 4. Bilateral pleural effusions and bibasilar atelectasis noted, right greater than left. 5. Diffuse body wall edema concerning for anasarca. D/ / Erick Pierson MD / Erick Pierson MD Interpreting Provider: Erick Pierson MD Consult Discharge Plan - Plan Referrals: Ramiro Vargas DO [Primary Care Provider] - 07/07/17 2:30 pm <Jimbo Houser T - Last Filed: 07/02/17 14:30> Date of Encounter: 07/02/17 - Assessment and plan (1) Cardiomyopathy Current Visit: Yes Status: Acute Qualifiers: Cardiomyopathy type: unspecified Qualified Code(s): I42.9 - Cardiomyopathy , unspecified (2) KAYA (acute kidney injury) Current Visit: Yes Status: Acute (3) CKD (chronic kidney disease) Current Visit: No Status: Acute Qualifiers: Chronic kidney disease stage: unspecified stage Qualified Code(s): N18.9 - Chronic kidney disease, unspecified (4) Hypothyroid Current Visit: No Status: Acute Qualifiers: 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 Qualified Code(s): E03.8 - Other specified hypothyroidism; E06.3 - Autoimmune thyroiditis; E06.3 - Autoimmune thyroiditis; E06.3 - Autoimmune thyroiditis (5) HTN (hypertension) Current Visit: Yes Status: Chronic Qualifiers: Hypertension type: essential hypertension Qualified Code(s): I10 - Essential (primary) hypertension (6) DMII (diabetes mellitus, type 2) Current Visit: Yes Status: Acute Qualifiers: Qualified Code(s): E11.9 - Type 2 diabetes mellitus without complications (7) Anasarca Current Visit: Yes Status: Acute (8) Heart failure with reduced ejection fraction Current Visit: Yes Status: Acute Qualifiers: Qualified Code(s): I50.20 - Unspecified systolic (congestive) heart failure - Time Spent With Patient Total time spent is greater than 50% in coordination of care (as documented) at patient's floor/unit and/or counseling patient: - Constitutional Vitals: Temp Pulse Resp BP Pulse Ox 97.9 F 66 17 138/80 95 07/02/17 06:41 07/02/17 06:41 07/02/17 06:41 07/02/17 06:41 07/02/17 06:41 Internal Medicine: Result - Labs CBC & Chem 7: 07/02/17 05:29 07/02/17 05:29 Labs: Short CBC 07/02/17 Range/Units 05:29 WBC 4.6 (4.3-11.1) K/mcL Hgb 8.5 L (11.5-15.4) g/dL Hct 27.7 L (35.3-44.9) % Plt Count 203 (140-400) K/mcL BMP 07/02/17 05:29 Sodium 137 Potassium 3.8 Chloride 99 Carbon Dioxide 28 BUN 90 H Creatinine 2.79 H Glucose 184 H Calcium 7.7 L - ABG Interpretation ABG results: PT/INR, D-dimer PT 13.1 Seconds (9.4-12.1) H 07/01/17 04:29 - Attending Attestation I examined this patient 07/02, and my medical decision-making was reviewed with the Resident Physician. I agree with the documented findings, disposition and treatment plan as described except to the extent set forth below. 51-year-old female with cardiomyopathy possibly nonischemic, Hashimotos thyroiditis, who is admitted and being managed for anasarca and fluid overload secondary to CHF exacerbation and possible progression of chronic kidney disease , suspect acute on chronic kidney disease, and uncontrolled hypothyroidism due to noncompliance. The patient is lying down comfortably in bed without any form of distress, she is morbidly obese, chest is clear to auscultation bilaterally, heart sounds are S1 and S2 without any murmurs and regular, abdomen is distended with abdominal wall edema as well as suspected ascites, she has 1+ bilateral pitting pedal edema. Labs and imaging reviewed. Abdomen CT done 07/01 shows presence of both kidneys. CBC at [facility] Renal function continues to improve I/O negative 4.6L Plan is to continue current management, goal is to achieve adequate diuresis No intervention planned by cardio or renal Rest of details as in the resident physician's documentation
--- NOTE | 2017-07-02 11:31 | Nephrology Progress Note ---
Date of Encounter: 07/02/17 Time of Encounter: 09:40 - Assessment and Plan (1) KAYA (acute kidney injury) Status: Acute She continues to trend slowly better but d/t her anasarca and ascites, she should continue diuretics. Fortunately she is tolerating this approach. I discussed with cardiology today that since she is only barely improving in terms of her renal function, I recommend she continue to have avoidance of nephrotoxins such as IV contrast, if able. The proteinuria may suggest diabetic nephropathy, or perhaps a secondary FSGS from her severe morbid obesity. She also has risk factors for cardiorenal syndrome. I would not rec an inpt renal biopsy just yet, since her morbid obesity would such a biopsy very technically challenging. Continue diuretics; no indication for [facility] at this point. Thank you. (2) Diabetic renal disease Status: Chronic I suspect the most likely etiology of her CKD is diabetes, obesity and cardiac / hemodynamic related. Qualifiers: Diabetes mellitus type: type 2 Qualified Code(s): E11.21 - Type 2 diabetes mellitus with diabetic nephropathy (3) Morbid obesity Status: Chronic As above (4) Proteinuria Status: Acute Will need to be followed. See above. Qualifiers: Proteinuria type: persistent Qualified Code(s): R80.1 - Persistent proteinuria, unspecified (5) Anasarca Status: Acute See above (6) Cardiomyopathy Status: Acute As per cardio Qualifiers: Cardiomyopathy type: unspecified Qualified Code(s): I42.9 - Cardiomyopathy , unspecified (7) HTN (hypertension) Status: Chronic See above. Qualifiers: Hypertension type: essential hypertension Qualified Code(s): I10 - Essential (primary) hypertension Subjective Principal diagnosis: Volume Overload Interval history: Pt was s/e earlier today her 2NE room. She did not affirm uremic complaints. She affirmed having an extensive cardiac history. Objective - Vital Signs Vital signs: Vital Signs Temp Pulse Resp BP Pulse Ox 07/02/17 06:41 97.9 F 66 17 138/80 95 07/02/17 04:18 97.7 F 68 18 134/96 94 07/01/17 20:42 97.8 F 75 18 159/97 97 07/01/17 16:00 97.7 F 75 15 146/82 99 07/01/17 15:59 75 173/101 07/01/17 11:37 97.3 F L 67 16 163/93 94 Intake and Output 05/04/18 05/05/18 05/05/18 23:59 07:59 15:59 Intake Total 120 / 120 50 / 50 Output Total 1100 / 1100 800 / 800 400 / 400 Balance -980 / -980 -750 / -750 -400 / -400 Intake: Oral 120 / 120 50 / 50 Output: Urine 1100 / 1100 800 / 800 400 / 400 Other: Meal Dinner Percent of Meal Consumed 5% Weight 139 kg Blood Glucose* 190 181 165 Patient Weight 07/02/17 23:59 Weight 139 kg - General Appearance Exam: General appearance: Present: well-developed, well-nourished, appears started age , obese EENT: Present: ATNC, PERRL Neck: Present: supple Respiratory: Present: clear Cardiology: Present: edema, normal S1, normal S2, chronic LE edema bilaterally Gastrointestinal: Present: normoactive bowel sounds, no tenderness, obese Integumentary: Present: warm and dry Neurologic: Present: no focal deficit, no asterixis, alert and oriented x3 Musculoskeletal: Present: no erythema, no cyanosis, no clubbing Psychiatric: Present: mood/affect appropriate, cooperative - Lab 07/03/17 04:33 07/03/17 04:33 Most recent lab results Calcium 7.7 mg/dL (8.6-10.3) L 07/02/17 05:29 Phosphorus 5.3 mg/dL (2.7-4.5) H 06/29/17 12:03 Urine Creatinine 81 mg/dL 06/30/17 23:05 Ur Total Protein 24 Hr 1168 mg/day (50-80) H 06/30/17 21:55 Urine Sodium 77.4 mEq/L 06/29/17 12:32 Urine Total Protein 120 mg/dL (1-14) H 06/30/17 23:05 Consult Discharge Plan - Plan Instructions: Furosemide (By mouth), Heart Failure (DC), Hypothyroidism (DC), Diabetes Mellitus Type 2 in Adults (DC), Chronic Obstructive Pulmonary Disease ( DC), Chronic Hypertension (DC), Edema (DC) Referrals: Timo Bravo CNP [Advanced Practice Nurse] - Ramiro Vargas DO [Primary Care Provider] - 07/07/17 2:30 pm Prescriptions: Furosemide [Lasix] 80 mg PO DAILY #30 vial
[2017-07-02 14:02] LABS: Lambda Qnt Free Light Chains 23.9 mg/dL (0.57-2.63)
[2017-07-03 00:15] LABS: Alpha 2 Globulin (PEP) 0.77 g/dL (0.48-1.05); Beta Globulin (PEP) 1.34 g/dL (0.48-1.10)
[2017-07-03 05:11] LABS: Basophils % 0.5 %; Eosinophils # 0.2 K/mcL (0.0-0.6); Eosinophils % 4.7 %; Hematocrit 28.2 % (35.3-44.9); Hemoglobin 8.6 g/dL (11.5-15.4); Immature Granulocytes % 0.5 % (0-4); Lymphocytes # 0.3 K/mcL (0.6-4.6); Lymphocytes % 8.2 %; Mean Corpuscular HGB Conc 30.5 g/dL (31.6-35.5); Mean Corpuscular Hemoglobin 28.1 pg (28.0-33.3); Mean Corpuscular Volume 92.2 fL (83.0-100.0); Mean Platelet Volume 11.8 fL (9.4-12.4); Monocytes # 0.5 K/mcL (0.0-1.3); Monocytes % 11.4 %; Platelet Count 200 K/mcL (140-400); Red Blood Count 3.06 M/mcL (3.82-4.97); Segmented Neutrophils % 74.7 %
[2017-07-03 05:30] LABS: Calcium 7.7 mg/dL (8.6-10.3)
[2017-07-03] MEDS: *HR* Heparin 5,000 UNIT/ML VIAL SQ SCH (06:04)
[2017-07-03] MEDS: *HR* HYDROcodone/Acet 10/325 mg TABLET PO PRN (06:10)
[2017-07-03 06:45] VITALS: BP 139/83
--- NOTE | 2017-07-03 07:13 | Cardiology Progress Note ---
Date of Encounter: 07/03/17 Time of Encounter: 07:10 Assessment and Plan (1) KAYA (acute kidney injury) Current Visit: Yes Status: Acute Per cardiology: Acute on chronic kidney disease. Kidney fxn improving. Per patient and baseline Scr 1.9-2.5. Nephrology following. (2) Cardiomyopathy Current Visit: Yes Status: Acute Per Cardiology: TTE 04/27/17 from [facility]: LVEF 25-30%, septal flattening of the interventricular septum consistent with RV volume overload, RV is mildly dilated with mildly reduced global systolic function. Per review of [facility] records, LHC was not performed due to renal function. Nuclear stress test was performed without evidence of ischemia. Cardiomyopathy thought to be non-ischemic. Current echo shows EF 30-35%, no pulmonary hypertension, mild TR. On BB, Hydralazine, Isordil. Remains off CAROLANN inhibitor/ARB due to worsening kidney function. Trop negative. Had paracentesis with 500ml removal. Now on IV lasix 80mg daily. Total Net I&O -5760ml. Clinically improving. Rec continue with diuresis per Nephrology-- suspect would benefit from more diuresis if able. Anticipate will need home PO diuretics net higher dose than was taking on arrival. Cardiology will s/o, re-consult PRN, f/u arranged. Will eval in outpatient setting potential need for LHC once acutely improved. Additionally, will need eval for potential for ICD as well. All questions answered. Qualifiers: Cardiomyopathy type: unspecified Qualified Code(s): I42.9 - Cardiomyopathy , unspecified (3) Hypothyroid Current Visit: No Status: Acute Per Cardiology: Management per primary service. Reportedly intermittent compliance with regimen. 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 All questions were answered. Thank you for involving us in the care of your patient. Please call with any questions. Subjective Principal diagnosis: Volume Overload Interval history: Reports feels "great". No CP. SOB, edema, and abdominal swelling continue to improve. Objective Vital Signs, Last 4 Hours Temp Pulse Resp BP Pulse Ox 07/03/17 06:41 97.7 F 65 19 139/83 95 07/03/17 04:05 67 15 138/88 95 General: Conversant, No Apparent Distress HEENT: Atraumatic, Normocephaly, Mucus Membranes Moist Neck: No JVD, Normal carotid pulses Cardiac: Reg Rate and Rhythm, Normal S1 and S2, No Murmur Lungs: Normal Breath Sounds, No Wheeze, Rales, Rhonchi Neuro: Alert and responsive, No focal deficits noted Abdomen: Soft, Non-Tender, Other (obese with ascites) Skin: No rashes noted on visualized skin Musculoskeletal: No Chest Wall Tenderness Extremities: No Clubbing, No Cyanosis, Normal Pulses, Other (+1-2 pitting edema) Results 07/03/17 04:33 07/03/17 04:33 Lab Results Laboratory Tests 07/03/17 04:33 Creatinine 2.72 H Est GFR (Non-Af Amer) 19 L Intake & Output 06/30/17 07/01/17 07/02/17 07/03/17 23:59 23:59 23:59 23:59 Intake Total 150 / 150 540 / 540 50 / 50 Output Total 1600 / 1600 2175 / 2175 1750 / 1750 600 / 600 Balance -1450 / -1450 -1635 / -1635 -1700 / -1700 -600 / -600 Weight 139.5 kg 139 kg 138.5 kg Active Medications Hydrocodone Bitart/Acetaminophen ([place] 10-325 Mg) 2 each PO TID PRN PRN Reason: Pain Stop: 12/29/17 14:12 Last Admin: 07/03/17 06:10 Dose: 2 each Aspirin (Aspirin) 81 mg PO DAILY [facility] Stop: 12/30/17 14:16 Last Admin: 07/02/17 08:54 Dose: 81 mg Carvedilol (Coreg) 50 mg PO BIDWM BOWEN PRN Reason: Protocol Stop: 12/29/17 21:01 Last Admin: 07/02/17 16:53 Dose: 50 mg Cetirizine HCl (Zyrtec) 2.5 mg PO DAILY BOWEN Stop: 12/30/17 13:31 Last Admin: 07/02/17 08:53 Dose: 2.5 mg Dextrose/Water (Dextrose 50% (Syg)) 25 ml IVP AD PRN PRN Reason: Hypoglycemia Stop: 12/29/17 14:15 Furosemide (Lasix) 80 mg IVP DAILY [facility] Stop: 12/31/17 13:01 Last Admin: 07/02/17 08:55 Dose: 80 mg Gabapentin (Neurontin) 300 mg PO BID [facility] Stop: 12/29/17 21:01 Last Admin: 07/02/17 20:54 Dose: 300 mg Glucagon (Glucagen) 1 mg IM ONCE PRN PRN Reason: Hypoglycemia Stop: 12/29/17 14:15 Glucose (Gluctose) 15 gm PO ONCE PRN PRN Reason: Hypoglycemia Stop: 12/29/17 14:15 Glucose (Gluctose) 30 gm PO ONCE PRN PRN Reason: Hypoglycemia Stop: 12/29/17 14:15 Heparin Sodium (Porcine) (Heparin) 5,000 unit SQ Q12HR [facility] Stop: 12/29/17 18:01 Last Admin: 07/03/17 06:04 Dose: 5,000 unit Hydralazine HCl (Hydralazine) 100 mg PO TID [facility] Stop: 12/29/17 15:01 Last Admin: 07/02/17 20:54 Dose: 100 mg Dextrose (Dextrose 5%) 1,000 mls @ 100 mls/hr IVC .Q10H PRN PRN Reason: HYPOGLYCEMIA Stop: 12/29/17 14:15 Insulin Human Lispro (Humalog) 0 units SQ TIDAC [facility] PRN Reason: Protocol Stop: 12/29/17 16:31 Last Admin: 07/02/17 16:53 Dose: 2 units Insulin Human Lispro (Humalog) 0 units SQ HS [facility] PRN Reason: Protocol Stop: 12/29/17 21:01 Last Admin: 07/02/17 21:01 Dose: Not Given Isosorbide Dinitrate (Isordil) 30 mg PO TIDAC [facility] Stop: 01/01/18 13:16 Last Admin: 07/02/17 16:50 Dose: Not Given Levothyroxine Sodium (Synthroid) 50 mcg PO 0630 [facility] Stop: 12/30/17 06:31 Last Admin: 07/03/17 06:04 Dose: 50 mcg Naloxone HCl (Narcan) 0.4 mg IVP Q2MIN PRN PRN Reason: SEE COMMENTS Stop: 12/29/17 14:15 Sertraline HCl (Zoloft) 100 mg PO HS B[facility] Stop: 12/29/17 21:01 Last Admin: 07/02/17 20:54 Dose: 100 mg - EKG Interpretation EKG results cardiology: other (SR) Consult Discharge Plan - Plan Referrals: Ramiro Vargas DO [Primary Care Provider] - 07/07/17 2:30 pm
--- NOTE | 2017-07-03 08:38 | Discharge Summary ---
<Jimbo Houser T - Last Filed: 07/03/17 13:32> Orders not resulted at time of discharge: Pending orders 06/30/17 12:14 MARSHALL IgG LISBET rflx IFA Stat Complement Component 3 Stat Complement Component 4 Stat 06/30/17 21:55 Immunofixation,Urine (BJP) Stat Date of Encounter: 07/03/17 - Discharge Diagnosis (1) Cardiomyopathy Status: Acute Qualifiers: Cardiomyopathy type: unspecified Qualified Code(s): I42.9 - Cardiomyopathy , unspecified (2) KAYA (acute kidney injury) Status: Acute (3) CKD (chronic kidney disease) Status: Acute Qualifiers: Chronic kidney disease stage: unspecified stage Qualified Code(s): N18.9 - Chronic kidney disease, unspecified (4) Hypothyroid Status: Acute Qualifiers: 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 Murphy is a 41 year old female - Time Spent with Patient Total time spent providing and/or coordinating discharge services: - Discharge Medications Prescriptions: Furosemide [Lasix] 80 mg PO DAILY #30 vial Home Medications: Carvedilol [Coreg] 50 mg PO BID 06/29/17 [History] Gabapentin [Neurontin] 300 mg PO BID 06/29/17 [History] GlipiZIDE [Glipizide ER] 10 mg PO BID 06/29/17 [History] HYDROcodone/Acet 10/325 mg [[place] 10-325 mg] 2 tab PO TID PRN 06/29/17 [History] Hydralazine HCl 100 mg PO TID 06/29/17 [History] Insulin ASPART [Novolog] 8 unit SQ TIDWM PRN 06/29/17 [History] Insulin Glargine,Hum.rec.anlog [Lantus Solostar] 20 unit SQ HS PRN 06/29/17 [ History] Isosorbide DInitrate [Isosorbide Dinitrate] 30 mg PO TID 06/29/17 [History] Levothyroxine [Synthroid] [place] [address]/29/17 [History] Lisinopril-HCTZ 10-12.5 [Prinzide 10-12.5] 1 tab PO BID 06/29/17 [History] Sertraline [Zoloft] 100 mg PO DAILY 06/29/17 [History] Aspirin [Lo-Dose Aspirin EC] 81 mg PO DAILY 06/30/17 [History] Furosemide [Lasix] 80 mg PO DAILY #30 vial 07/03/17 [Rx] Allergies/Adverse Reactions: 3 Allergy/AdvReac Type Severity Reaction Status Date / Time baclofen Allergy Diarrhea Verified 06/29/17 12:45 exenatide [From Byetta] Allergy Diarrhea Verified 06/29/17 12:45 sulfamethoxazole Allergy Rash Verified 06/29/17 12:45 [From Bactrim] trimethoprim [From Bactrim] Allergy Rash Verified 06/29/17 12:45 Date of admission: 06/29/17 14:56 Primary care physician: Con Bravo Consults: 07/01/17 09:37 Consult to Interventional Radiology [CONS] Routine Consulting Provider: Radiology Interventional Cols Reason for Consult: Paracentesis Call Completed: Yes 07/01/17 15:38 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 [Consult to Nutrition] [CONS] Routine Comment: Consulting Provider: NUTRITION Reason for Dietary Consult: Diet Education - Constitutional Vitals: Temp Pulse Resp BP Pulse Ox 97.7 F 65 19 139/83 95 07/03/17 06:41 07/03/17 06:41 07/03/17 06:41 07/03/17 06:41 07/03/17 06:41 - Patient Status Disposition: Home, Self-Care Condition: Good - Discharge Instructions Instructions: Furosemide (By mouth), Heart Failure (DC), Hypothyroidism (DC), Diabetes Mellitus Type 2 in Adults (DC), Chronic Obstructive Pulmonary Disease ( DC), Chronic Hypertension (DC), Edema (DC) Follow Up With: Timo Bravo CNP [Advanced Practice Nurse] - Ramiro Vargas DO [Primary Care Provider] - 07/07/17 2:30 pm - Attending Attestation I examined this patient 07/03, and my medical decision-making was reviewed with the Resident Physician. I agree with the documented findings, disposition and treatment plan as described except to the extent set forth below. 51-year-old female with cardiomyopathy possibly nonischemic, Hashimotos thyroiditis, who is admitted and being managed for anasarca and fluid overload secondary to CHF exacerbation and possible progression of chronic kidney disease , suspect acute on chronic kidney disease, and uncontrolled hypothyroidism due to noncompliance. The patient is lying down comfortably in bed without any form of distress, she is morbidly obese, chest is clear to auscultation bilaterally, heart sounds are S1 and S2 without any murmurs and regular, abdomen is distended with abdominal wall edema as well as suspected ascites, she has 1+ bilateral pitting pedal edema. Labs and imaging reviewed. CBC at [facility] Renal function continues to improve I/O negative -5.6L Weight loss demonstrated- Plan is to discharge home on current meds Not on ACEI due to KAYA on CKD, defer to PCP/Cardio to restart Follow up with cardio Extensively educated on medication compliance, fluid restriction, salt intake, daily weight checks Agrees with plan Rest of details as in the resident physician's documentation <Guzman King - Last Filed: 07/03/17 16:33> Orders not resulted at time of discharge: Pending orders 06/30/17 12:14 MARSHALL IgG LISBET rflx IFA Stat Complement Component 3 Stat Complement Component 4 Stat 06/30/17 21:55 Immunofixation,Urine (BJP) Stat Date of Encounter: 07/03/17 Time of Encounter: 08:30 - Discharge Diagnosis (1) Heart failure with reduced ejection fraction Priority: Primary Status: Acute (2) Anasarca Priority: Primary Status: Acute (3) Cardiomyopathy Priority: Primary Status: Acute Qualifiers: Cardiomyopathy type: unspecified Qualified Code(s): I42.9 - Cardiomyopathy , unspecified (4) CKD (chronic kidney disease) Priority: Secondary Status: Acute Qualifiers: Chronic kidney disease stage: unspecified stage Qualified Code(s): N18.9 - Chronic kidney disease, unspecified (5) KAYA (acute kidney injury) Priority: Secondary Status: Acute (6) Hypothyroid Priority: Secondary Status: Acute Qualifiers: 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 Murphy is a 41 year old female history of Karina's on synthroid, diabetes, CKD, who was sent from Dr. Catherine Frausto's office for anasarca. Patient has cardiomyopathy with LVEF 30% and was seeing Dr. Frausto for second opinion. She was unable to undergo LHC due to kidney disease. During this admission, nephrology recommendation of avoiding nephrotoxins due to CKD. Patient's kidney function improved slightly with lasix, but plan for LHC when more stable. U/S guided paracentesis was performed and removed 500ml of straw-colored fluid. Patient had an overall -5460 ml fluid balance. Plan to follow up with nephrology and cardiology outpatient. Her torsemide has been d/c due to lack of effectiveness. She is to continue taking 80 mg Lasix daily and monitor her own weight closely. Patient demonstrates understanding and is agreeable to treatment plan. Discharge discussed with: patient, family - Time Spent with Patient Total time spent providing and/or coordinating discharge services: Date of admission: 06/29/17 14:56 Primary care physician: Con Bravo Consults: 07/01/17 09:37 Consult to Interventional Radiology [CONS] Routine Consulting Provider: Radiology Interventional Cols Reason for Consult: Paracentesis Call Completed: Yes 07/01/17 15:38 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 [Consult to Nutrition] [CONS] Routine Comment: Consulting Provider: NUTRITION Reason for Dietary Consult: Diet Education Discharging clinician: Guzman King Anticipated date of discharge: 07/03/17 - Constitutional Vitals: Temp Pulse Resp BP Pulse Ox 97.7 F 65 19 139/83 95 07/03/17 06:41 07/03/17 06:41 07/03/17 06:41 07/03/17 06:41 07/03/17 06:41 General appearance: Present: A&O X 3, no acute distress, obese - Head Head exam: Present: atraumatic, normocephalic - Eye Eye exam: Present: EOMI, conjuntiva pink, sclera anicteric - Neck Neck exam general surgery: Present: supple, trachea midline. Absent: lymphadenopathy - Respiratory Respiratory exam: Present: CTAB. Absent: accessory muscle use, rales, rhonchi, wheezes - Cardiovascular Cardiovascular exam: Present: RRR, +S1, +S2. Absent: diastolic murmur, gallop, rubs, systolic murmur - GI/Abdominal GI/Abdominal exam: Present: diminished bowel sounds, normal bowel sounds, no peritoneal signs. Absent: distended, tenderness Additional comments: distended. Anasarca - Extremities Exam Extremities exam: Present: warm, radial pulses palpable and symmetrical. Absent : calf tenderness, cyanotic, pedal edema - Incison Incision: Present: clean and dry, intact - Neurological Exam Neurological exam: Present: alert, oriented X3, no focal deficits. Absent: pronater drift, facial droop, speech deficit - Skin Skin exam: Present: dry, intact - Patient Status Functional capacity at discharge: independent ambulation Overall status at discharge: patient is progressing back to baseline - Diet and Activity Diet: diabetic diet, other (renal diet) - VTE Documentation of Mechanical Device: Intermittent pneumatic compression device
[2017-07-03] MEDS: Cetirizine HCl 5 MG/5 ML UDC PO SCH (09:51)
[2017-07-03] MEDS: Gabapentin 300 MG CAPSULE PO SCH (09:51)
[2017-07-03] MEDS: Furosemide 40 MG/4 ML VIAL IVP SCH (09:51)
[2017-07-03] MEDS: Aspirin 81 MG TAB.CHEW PO SCH (09:52)
[2017-07-03] MEDS: hydrALAZINE 25 MG TABLET PO SCH (09:52)
[2017-07-03] MEDS: Insulin LISPRO 300 UNITS/3 ML VIAL SQ SCH (09:52)
--- NOTE | 2017-07-03 12:25 | Physician Discharge Referral ---
Home Health/Hosp Referral Info Transfer to: Home Health - Diagnosis (1) Heart failure with reduced ejection fraction Priority: Primary Status: Acute (2) Anasarca Priority: Primary Status: Acute (3) Cardiomyopathy Priority: Primary Status: Acute (4) CKD (chronic kidney disease) Priority: Secondary Status: Acute (5) KAYA (acute kidney injury) Priority: Secondary Status: Acute (6) Hypothyroid Priority: Secondary Status: Acute (7) HTN (hypertension) Priority: Secondary Status: Chronic (8) DMII (diabetes mellitus, type 2) Priority: Secondary Status: Acute - Respiratory Orders Smoking Cessation: Smoking cessation has been advised. For more information, call the [place] Tobacco Quit Line at 9-642-BOLU-NOW. - Diet/Nutrition Diet/Nutrition Orders: Renal - Activity Activity Orders: Ambulate - Services Needed Following services are medically necessary services: Home Health Aide - Transfer Medications Prescriptions: Furosemide [Lasix] 80 mg PO DAILY #30 vial Home Medications: Carvedilol [Coreg] 50 mg PO BID 06/29/17 [History] Gabapentin [Neurontin] 300 mg PO BID 06/29/17 [History] GlipiZIDE [Glipizide ER] 10 mg PO BID 06/29/17 [History] HYDROcodone/Acet 10/325 mg [[place] 10-325 mg] 2 tab PO TID PRN 06/29/17 [History] Hydralazine HCl 100 mg PO TID 06/29/17 [History] Insulin ASPART [Novolog] 8 unit SQ TIDWM PRN 06/29/17 [History] Insulin Glargine,Hum.rec.anlog [Lantus Solostar] 20 unit SQ HS PRN 06/29/17 [ History] Isosorbide DInitrate [Isosorbide Dinitrate] 30 mg PO TID 06/29/17 [History] Levothyroxine [Synthroid] 50 mcg PO 0630 06/29/17 [History] Lisinopril-HCTZ 10-12.5 [Prinzide 10-12.5] 1 tab PO BID 06/29/17 [History] Sertraline [Zoloft] 100 mg PO DAILY 06/29/17 [History] Aspirin [Lo-Dose Aspirin EC] 81 mg PO DAILY 06/30/17 [History] Furosemide [Lasix] 80 mg PO DAILY #30 vial 07/03/17 [Rx] Allergies/Adverse Reactions: 3 Allergy/AdvReac Type Severity Reaction Status Date / Time baclofen Allergy Diarrhea Verified 06/29/17 12:45 exenatide [From Byetta] Allergy Diarrhea Verified 06/29/17 12:45 sulfamethoxazole Allergy Rash Verified 06/29/17 12:45 [From Bactrim] trimethoprim [From Bactrim] Allergy Rash Verified 06/29/17 12:45 Certification: Further, I certify that my clinical findings support that this patient is homebound (i.e. absences from home require considerable and taxing effort and are for medical reasons or amish services or infrequently or short duration when for other reasons) because: Homebound Reason: Patient requires assistance of a person or device to safely leave home, Leaving home requires considerable and taxing effort due to condition Attestation: My signature below is to certify that this patient is under my care and that I, or nurse practitioner, or a physician's nutrition assistant working with me, has a face-to -face encounter with this patient.
[2017-07-04 04:33] LABS: Urine Collection Duration 24 hr; Urine Collection Volume 1595 mL
[2017-07-04 10:06] LABS: IFE Reflexed IFE Done; Immunoglobulin A 207 mg/dL (68-408)
[2017-07-04 10:13] LABS: Immunoglobulin G 1950 mg/dL (768-1632); Immunoglobulin M 364 mg/dL (35-263)
[2017-07-04 10:18] LABS: ANA IgG by ELISA NONE DETECTED (None Detected)
[2017-07-05 07:49] LABS: Complement Component 3 127 mg/dL (88-201); Complement Component 4 11 mg/dL (10-40)
== END 2017-07-03 12:43 | disposition home or self-care (01) | DRG 194 ==
LOC: EMEROO 11:28 → 3NENU 11:28 → SUATTDRO 14:56 → 2NENU 18:18
PROVIDERS: ADMIT Internal Medicine Hematology & Oncology; ATTEND Internal Medicine

== ENCOUNTER 2017-07-18 13:44 | Inpatient (IN) ==
--- NOTE | 2017-07-18 14:03 | Emergency Department Note ---
Disposition Clinical Impression: Anasarca, Abdominal pain CHF (congestive heart failure) Qualifiers: Heart failure type: unspecified Heart failure chronicity: acute on chronic Qualified Code(s): I50.9 - Heart failure, unspecified CKD (chronic kidney disease) Qualifiers: Chronic kidney disease stage: unspecified stage Qualified Code(s): N18.9 - Chronic kidney disease, unspecified Disposition: Admitted As Inpatient Condition: Fair Time of Disposition: 18:05 Abdominal Pain HPI - General Chief Complaint: ED Abdominal Pain Stated Complaint: CHF Time Seen by Provider: 07/18/17 13:45 Source: EMS Mode of arrival: ambulatory Limitations: no limitations Nursing Notes Reviewed: Yes Vital Signs Reviewed: Yes - History of Present Illness HPI Narrative: Patient presents to the ED with the chief complaint of abdominal swelling. Patient has a history of CHF. I personally saw the patient earlier this month on her previous admission. Her presenting history is that she has a history of fairly significant CHF with an EF less than 20%. She was previously followed at the [facility] CHF clinic. They recommended pacemaker placement and palliative care. However, she wanted another opinion so she came to cardiology here. We admitted her and repeated the echo, which showed improved EF and she had IV diuresis, which seemed to improve and then when she was sent home. She is progressively worsened. She is presenting today with more significant abdominal pain and swelling. She is also now edematous in her legs, which she was not previously. She is more short of breath than usual, but likely related to her abdominal distention. Reports that they were going to do a paracentesis last time under CT guidance, but that there was no significant intra-abdominal fluid and most of this is subcutaneous. She reports she cannot live like this anymore and this is not her at all and she really needs to figure out what is going on. No fever or chills or chest pain. No diarrhea. Pain Scale: 0 - Related Data Home Medications Medication Instructions Recorded Confirmed Carvedilol [Coreg] 50 mg PO BID 06/29/17 07/18/17 Gabapentin [Neurontin] 300 mg PO BID 06/29/17 07/18/17 Hydralazine HCl 100 mg PO TID 06/29/17 07/18/17 Isosorbide DInitrate [Isosorbide 30 mg PO TID 06/29/17 07/18/17 Dinitrate] Lisinopril-HCTZ 10-12.5 [Prinzide 1 tab PO BID 06/29/17 07/18/17 10-12.5] Sertraline [Zoloft] 100 mg PO DAILY 06/29/17 07/18/17 Aspirin [Lo-Dose Aspirin EC] 81 mg PO DAILY 06/30/17 07/18/17 Cetirizine HCl 10 mg PO DAILY 07/18/17 07/18/17 Levothyroxine [Synthroid] 75 mcg PO 0630 07/18/17 07/18/17 OxyCODONE Immed Rel [Roxicodone 10 20 mg PO Q4H PRN 07/18/17 07/18/17 MG] Previous Rx's Medication Instructions Recorded Furosemide [Lasix] 80 mg PO DAILY #30 vial 07/03/17 Allergies Allergy/AdvReac Type Severity Reaction Status Date / Time baclofen Allergy Diarrhea Verified 07/18/17 15:42 exenatide [From Byetta] Allergy Diarrhea Verified 07/18/17 15:42 sulfamethoxazole Allergy Rash Verified 07/18/17 15:42 [From Bactrim] trimethoprim [From Bactrim] Allergy Rash Verified 07/18/17 15:42 Review of Systems: As reviewed in the HPI. All other systems reviewed are negative or normal. 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 Psychiatric history: Reports: depression - Social History Smoking status: Former smoker Alcohol use: Reports: none Drug use: Reports: none Physical Exam CONSTITUTIONAL: [Tearful, but no acute distress] SKIN: [Warm, dry, and intact without rash] EYES: [extraocular movements are grossly intact, clear conjunctiva] HENT: [Normocephalic, atraumatic, moist mucus membranes] NECK: [no obvious swelling, normal range of motion] PULMONARY: [normal chest rise and fall, no respiratory distress or stridor CARDIOVASCULAR: [regular rate, distal extremities are warm and well perfused] GASTROINSTESTINAL: [Significantly distended, firm, anasarca, no fluid wave, decreased bowel sounds, diffuse tenderness] GENITOURINARY: [deferred] NEUROLOGIC: [normal speech, moves all extremities] MUSCULOSKELETAL: [no gross deformities, atraumatic, pitting edema bilateral lower extremities] PSYCHIATRIC: [Anxious and tearful] - General Limitations: physical limitation General appearance: alert, appears intoxicated Course Course Narrative: Patient presenting with CHF. Patient is significantly worse than when I saw her earlier this month. She will certainly need to be admitted again for IV diuresis. We will recheck labs, chest x-ray and CT her abdomen and pelvis due to her progression of distention and abdominal firmness. - Reevaluation(s) Reevaluation #1: Spoke with the on-call hospitalist. Patient does have an acute on chronic KAYA. We did decide to go ahead and give her 80 mg of IV Lasix to start diuresis, but that the patient will likely need hemodialysis versus ultrafiltration. If her renal function improves ultrafiltration may be reasonable but if not hemodialysis would be the best way to get this much fluid off. This is also discussed with the on-call towel sewer, Dr. Davila. Patient will be admitted with Dr. Crews - Consultations Consultation #1: Admitted to the hospitalist service under Dr. Crews Vital Signs Temperature 97.6 F 07/18/17 13:45 Pulse Rate 67 07/18/17 13:45 Respiratory Rate 22 07/18/17 13:45 Blood Pressure 137/79 07/18/17 13:45 O2 Sat by Pulse Oximetry 92 07/18/17 13:45 Temperature 97.6 F 07/18/17 13:45 Pulse Rate 67 07/18/17 14:13 Respiratory Rate 22 07/18/17 13:45 Blood Pressure 134/79 07/18/17 14:13 O2 Sat by Pulse Oximetry 94 07/18/17 14:13 Oxygen Delivery Oxygen Delivery Room Air Abdominal Pain - Medical Records Medical records reviewed: Yes I reviewed the patient's medical records. - Lab Data Lab results reviewed: Yes I reviewed the patient's lab results. Result diagrams: 07/18/17 14:39 07/18/17 14:39 Lab Results 07/18/17 07/18/17 07/18/17 Range/Units 14:32 14:39 14:39 WBC 6.2 (4.3-11.1) K/mcL RBC 3.07 L (3.82-4.97) M/mcL Hgb 8.7 L (11.5-15.4) g/dL Hct 28.9 L (35.3-44.9) % MCV 94.1 (83.0-100.0) fL MCH 28.3 (28.0-33.3) pg MCHC 30.1 L (31.6-35.5) g/dL RDW 14.6 H (11.5-14.5) % Plt Count 222 (140-400) K/mcL MPV 11.6 (9.4-12.4) fL Immature Gran % 0.2 (0-4) % Seg Neutrophils % 83.8 % Lymphocytes % 4.1 % Monocytes % 8.8 % Eosinophils % 2.4 % Basophils % 0.7 % Neutrophils # 5.2 (1.6-8.9) K/mcL Lymphocytes # 0.3 L (0.6-4.6) K/mcL Monocytes # 0.5 (0.0-1.3) K/mcL Eosinophils # 0.2 (0.0-0.6) K/mcL Basophils # 0.0 (0.0-0.2) K/mcL Sodium 135 L (136-145) mEq/L Potassium 5.0 (3.5-5.1) mEq/L Chloride 100 (98-107) mEq/L Carbon Dioxide 22 L (23-29) mEq/L BUN 106 H (6-20) mg/dL Creatinine 3.47 H (0.60-1.20) mg/dL Est GFR ( Amer) 17 L (> 60) Est GFR (Non-Af Amer) 14 L (> 60) BUN/Creatinine Ratio 31 H (6-26) Glucose 242 H (70-105) mg/dL Calculated Osmolality 321 H (280-300) Lactic Acid (0.5-2.2) mmol/L Calcium 7.6 L (8.6-10.3) mg/dL Total Bilirubin 0.4 (0.3-1.0) mg/dL Direct Bilirubin 0.1 (0.0-0.2) mg/dL Indirect Bilirubin 0.3 (0.0-1.2) mg/dL AST 15 (13-39) Units/L ALT 10 (7-52) Units/L Alkaline Phosphatase 119 H (34-104) Units/L Troponin I 0.03 (< 0.04) ng/mL B-Natriuretic Peptide (Less than 100) pg/mL Serum Total Protein 8.1 (6.4-8.9) g/dL Albumin 3.1 L (3.5-5.7) g/dL Globulin 5.0 H (2.4-3.5) g/dL Albumin/Globulin Ratio 0.6 L (1.1-2.2) Urine Color Yellow (Yellow) Urine Clarity Turbid A (Clear) Urine pH 5.5 (5.0-8.0) pH Units Ur Specific [place] 1.018 (1.010-1.025) Urine Protein 30 H (Neg-Trace) mg/dL Urine Glucose (UA) Normal (Normal) mg/dL Urine Ketones Negative (Negative) mg/dL Urine Blood Negative (Negative) Urine Nitrite Negative (Negative) Urine Bilirubin Negative (Negative) Urine Urobilinogen Normal (Normal) mg/dL Ur Leukocyte Esterase Large H (Negative) Urine Microscopic RBC 5-15 H (0-3) per hpf Urine Microscopic WBC TNTC H (0-3) per hpf Ur Squamous Epith Cells Many H (None-Few) per lpf Urine Bacteria Many H (None-Few) per hpf Hyaline Casts None Seen (None-Few) per lpf Ur Culture Indicated? NO. A (NO) 07/18/17 07/18/17 Range/Units 14:39 14:39 WBC (4.3-11.1) K/mcL RBC (3.82-4.97) M/mcL Hgb (11.5-15.4) g/dL Hct (35.3-44.9) % MCV (83.0-100.0) fL MCH (28.0-33.3) pg MCHC (31.6-35.5) g/dL RDW (11.5-14.5) % Plt Count (140-400) K/mcL MPV (9.4-12.4) fL Immature Gran % (0-4) % Seg Neutrophils % % Lymphocytes % % Monocytes % % Eosinophils % % Basophils % % Neutrophils # (1.6-8.9) K/mcL Lymphocytes # (0.6-4.6) K/mcL Monocytes # (0.0-1.3) K/mcL Eosinophils # (0.0-0.6) K/mcL Basophils # (0.0-0.2) K/mcL Sodium (136-145) mEq/L Potassium (3.5-5.1) mEq/L Chloride (98-107) mEq/L Carbon Dioxide (23-29) mEq/L BUN (6-20) mg/dL Creatinine (0.60-1.20) mg/dL Est GFR ( Amer) (> 60) Est GFR (Non-Af Amer) (> 60) BUN/Creatinine Ratio (6-26) Glucose (70-105) mg/dL Calculated Osmolality (280-300) Lactic Acid 1.1 (0.5-2.2) mmol/L Calcium (8.6-10.3) mg/dL Total Bilirubin (0.3-1.0) mg/dL Direct Bilirubin (0.0-0.2) mg/dL Indirect Bilirubin (0.0-1.2) mg/dL AST (13-39) Units/L ALT (7-52) Units/L Alkaline Phosphatase (34-104) Units/L Troponin I (< 0.04) ng/mL B-Natriuretic Peptide 884 H (Less than 100) pg/mL Serum Total Protein (6.4-8.9) g/dL Albumin (3.5-5.7) g/dL Globulin (2.4-3.5) g/dL Albumin/Globulin Ratio (1.1-2.2) Urine Color (Yellow) Urine Clarity (Clear) Urine pH (5.0-8.0) pH Units Ur Specific [place] (1.010-1.025) Urine Protein (Neg-Trace) mg/dL Urine Glucose (UA) (Normal) mg/dL Urine Ketones (Negative) mg/dL Urine Blood (Negative) Urine Nitrite (Negative) Urine Bilirubin (Negative) Urine Urobilinogen (Normal) mg/dL Ur Leukocyte Esterase (Negative) Urine Microscopic RBC (0-3) per hpf Urine Microscopic WBC (0-3) per hpf Ur Squamous Epith Cells (None-Few) per lpf Urine Bacteria (None-Few) per hpf Hyaline Casts (None-Few) per lpf Ur Culture Indicated? (NO) - Radiology Data Radiology results reviewed: Yes I reviewed the patient's radiology results. - EKG Data EKG attestation: Yes I reviewed and interpreted this EKG. EKG results narrative: Sinus rhythm, rate 66, ME interval 161, QRS 85, QTC 431, normal axis, low voltage QRS diffusely
[2017-07-18] MEDS ORDERED: Furosemide 40 MG/4 ML VIAL IVP ONE (14:47)
[2017-07-18 14:55] LABS: Bilirubin,Urine Negative (Negative); Blood,Urine Negative (Negative); Clarity,Urine Turbid (Clear); Color,Urine Yellow (Yellow); Glucose,Urine (UA) Normal (Normal); Ketones,Urine Negative (Negative); Leukocyte Esterase,Urine Large (Negative); Nitrite,Urine Negative (Negative); PH,Urine 5.5 pH Units (5.0-8.0); Protein,Urine 30 mg/dL (Neg-Trace); Specific Gravity,Urine 1.018 (1.010-1.025); Urobilinogen,Urine Normal (Normal)
[2017-07-18 14:58] LABS: Bacteria,Urine Many per hpf (None-Few); Hyaline Casts,Urine None Seen per lpf (None-Few); Squamous Epithelial Cell,Urine Many per lpf (None-Few); WBC,Urine TNTC per hpf (0-3)
[2017-07-18 15:03] LABS: Basophils % 0.7 %; Eosinophils # 0.2 K/mcL (0.0-0.6); Eosinophils % 2.4 %; Hematocrit 28.9 % (35.3-44.9); Hemoglobin 8.7 g/dL (11.5-15.4); Immature Granulocytes % 0.2 % (0-4); Lymphocytes # 0.3 K/mcL (0.6-4.6); Lymphocytes % 4.1 %; Mean Corpuscular HGB Conc 30.1 g/dL (31.6-35.5); Mean Corpuscular Hemoglobin 28.3 pg (28.0-33.3); Mean Corpuscular Volume 94.1 fL (83.0-100.0); Mean Platelet Volume 11.6 fL (9.4-12.4); Monocytes # 0.5 K/mcL (0.0-1.3); Monocytes % 8.8 %; Neutrophils # 5.2 K/mcL (1.6-8.9); Platelet Count 222 K/mcL (140-400); Red Blood Count 3.07 M/mcL (3.82-4.97); Red Cell Distribution Width 14.6 % (11.5-14.5); Segmented Neutrophils % 83.8 %
[2017-07-18 15:22] LABS: Troponin I 0.03 ng/mL (< 0.04)
[2017-07-18 15:37] LABS: Albumin 3.1 g/dL (3.5-5.7); Albumin/Globulin Ratio 0.6 (1.1-2.2); Bilirubin,Direct 0.1 mg/dL (0.0-0.2); Bilirubin,Indirect 0.3 mg/dL (0.0-1.2); Bilirubin,Total 0.4 mg/dL (0.3-1.0); Calcium 7.6 mg/dL (8.6-10.3); Total Protein 8.1 g/dL (6.4-8.9)
--- NOTE | 2017-07-18 15:51 | Emergency Department Note ---
Disposition Clinical Impression: CHF (congestive heart failure) Qualifiers: Heart failure type: unspecified Heart failure chronicity: acute on chronic Qualified Code(s): I50.9 - Heart failure, unspecified Disposition: Admitted As Inpatient Forms: ED Satisfaction Letter, Work/School Release General Adult HPI - General Chief complaint: ED Abdominal Pain Stated complaint: CHF Time Seen by Provider: 07/18/17 13:45 Source: EMS Limitations: physical limitation - History of Present Illness Pain Scale: 0 - Related Data Home Medications Medication Instructions Recorded Confirmed Carvedilol [Coreg] 50 mg PO BID 06/29/17 07/18/17 Gabapentin [Neurontin] 300 mg PO BID 06/29/17 07/18/17 Hydralazine HCl 100 mg PO TID 06/29/17 07/18/17 Isosorbide DInitrate [Isosorbide 30 mg PO TID 06/29/17 07/18/17 Dinitrate] Lisinopril-HCTZ 10-12.5 [Prinzide 1 tab PO BID 06/29/17 07/18/17 10-12.5] Sertraline [Zoloft] 100 mg PO DAILY 06/29/17 07/18/17 Aspirin [Lo-Dose Aspirin EC] 81 mg PO DAILY 06/30/17 07/18/17 Cetirizine HCl 10 mg PO DAILY 07/18/17 07/18/17 Levothyroxine [Synthroid] 75 mcg PO 0630 07/18/17 07/18/17 OxyCODONE Immed Rel [Roxicodone 10 20 mg PO Q4H PRN 07/18/17 07/18/17 MG] Previous Rx's Medication Instructions Recorded Furosemide [Lasix] 80 mg PO DAILY #30 vial 07/03/17 Allergies Allergy/AdvReac Type Severity Reaction Status Date / Time baclofen Allergy Diarrhea Verified 07/18/17 15:42 exenatide [From Byetta] Allergy Diarrhea Verified 07/18/17 15:42 sulfamethoxazole Allergy Rash Verified 07/18/17 15:42 [From Bactrim] trimethoprim [From Bactrim] Allergy Rash Verified 07/18/17 15:42 Past Medical History - Past Medical History Medical history: Reports: non-contributory, CHF, diabetes, hypertension, other Surgical history: Reports: no surgical history, non-contributory Psychiatric history: Reports: depression 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 CLAIM REP history: 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: bilateral tubal ligation - Social History Smoking Status: Former smoker Smokeless Tobacco Status: No Alcohol use: Reports: none Drug use: Reports: none Physical Exam - General Limitations: physical limitation General appearance: alert, appears intoxicated Course Vital Signs Temperature 97.6 F 07/18/17 13:45 Pulse Rate 67 07/18/17 13:45 Respiratory Rate 22 07/18/17 13:45 Blood Pressure 137/79 07/18/17 13:45 O2 Sat by Pulse Oximetry 92 07/18/17 13:45 Temperature 97.6 F 07/18/17 13:45 Pulse Rate 67 07/18/17 14:13 Respiratory Rate 22 07/18/17 13:45 Blood Pressure 134/79 07/18/17 14:13 O2 Sat by Pulse Oximetry 94 07/18/17 14:13 Oxygen Delivery Oxygen Delivery Room Air Medical Decision Making - Lab Data Result diagrams: 07/18/17 14:39 07/18/17 14:39 Lab Results 07/18/17 07/18/17 07/18/17 Range/Units 14:32 14:39 14:39 WBC 6.2 (4.3-11.1) K/mcL RBC 3.07 L (3.82-4.97) M/mcL Hgb 8.7 L (11.5-15.4) g/dL Hct 28.9 L (35.3-44.9) % MCV 94.1 (83.0-100.0) fL MCH 28.3 (28.0-33.3) pg MCHC 30.1 L (31.6-35.5) g/dL RDW 14.6 H (11.5-14.5) % Plt Count 222 (140-400) K/mcL MPV 11.6 (9.4-12.4) fL Immature Gran % 0.2 (0-4) % Seg Neutrophils % 83.8 % Lymphocytes % 4.1 % Monocytes % 8.8 % Eosinophils % 2.4 % Basophils % 0.7 % Neutrophils # 5.2 (1.6-8.9) K/mcL Lymphocytes # 0.3 L (0.6-4.6) K/mcL Monocytes # 0.5 (0.0-1.3) K/mcL Eosinophils # 0.2 (0.0-0.6) K/mcL Basophils # 0.0 (0.0-0.2) K/mcL Sodium 135 L (136-145) mEq/L Potassium 5.0 (3.5-5.1) mEq/L Chloride 100 (98-107) mEq/L Carbon Dioxide 22 L (23-29) mEq/L BUN 106 H (6-20) mg/dL Creatinine 3.47 H (0.60-1.20) mg/dL Est GFR ( Amer) 17 L (> 60) Est GFR (Non-Af Amer) 14 L (> 60) BUN/Creatinine Ratio 31 H (6-26) Glucose 242 H (70-105) mg/dL Calculated Osmolality 321 H (280-300) Lactic Acid (0.5-2.2) mmol/L Calcium 7.6 L (8.6-10.3) mg/dL Total Bilirubin 0.4 (0.3-1.0) mg/dL Direct Bilirubin 0.1 (0.0-0.2) mg/dL Indirect Bilirubin 0.3 (0.0-1.2) mg/dL AST 15 (13-39) Units/L ALT 10 (7-52) Units/L Alkaline Phosphatase 119 H (34-104) Units/L Troponin I 0.03 (< 0.04) ng/mL B-Natriuretic Peptide (Less than 100) pg/mL Serum Total Protein 8.1 (6.4-8.9) g/dL Albumin 3.1 L (3.5-5.7) g/dL Globulin 5.0 H (2.4-3.5) g/dL Albumin/Globulin Ratio 0.6 L (1.1-2.2) Urine Color Yellow (Yellow) Urine Clarity Turbid A (Clear) Urine pH 5.5 (5.0-8.0) pH Units Ur Specific [place] 1.018 (1.010-1.025) Urine Protein 30 H (Neg-Trace) mg/dL Urine Glucose (UA) Normal (Normal) mg/dL Urine Ketones Negative (Negative) mg/dL Urine Blood Negative (Negative) Urine Nitrite Negative (Negative) Urine Bilirubin Negative (Negative) Urine Urobilinogen Normal (Normal) mg/dL Ur Leukocyte Esterase Large H (Negative) Urine Microscopic RBC 5-15 H (0-3) per hpf Urine Microscopic WBC TNTC H (0-3) per hpf Ur Squamous Epith Cells Many H (None-Few) per lpf Urine Bacteria Many H (None-Few) per hpf Hyaline Casts None Seen (None-Few) per lpf Ur Culture Indicated? NO. A (NO) 07/18/17 07/18/17 Range/Units 14:39 14:39 WBC (4.3-11.1) K/mcL RBC (3.82-4.97) M/mcL Hgb (11.5-15.4) g/dL Hct (35.3-44.9) % MCV (83.0-100.0) fL MCH (28.0-33.3) pg MCHC (31.6-35.5) g/dL RDW (11.5-14.5) % Plt Count (140-400) K/mcL MPV (9.4-12.4) fL Immature Gran % (0-4) % Seg Neutrophils % % Lymphocytes % % Monocytes % % Eosinophils % % Basophils % % Neutrophils # (1.6-8.9) K/mcL Lymphocytes # (0.6-4.6) K/mcL Monocytes # (0.0-1.3) K/mcL Eosinophils # (0.0-0.6) K/mcL Basophils # (0.0-0.2) K/mcL Sodium (136-145) mEq/L Potassium (3.5-5.1) mEq/L Chloride (98-107) mEq/L Carbon Dioxide (23-29) mEq/L BUN (6-20) mg/dL Creatinine (0.60-1.20) mg/dL Est GFR ( Amer) (> 60) Est GFR (Non-Af Amer) (> 60) BUN/Creatinine Ratio (6-26) Glucose (70-105) mg/dL Calculated Osmolality (280-300) Lactic Acid 1.1 (0.5-2.2) mmol/L Calcium (8.6-10.3) mg/dL Total Bilirubin (0.3-1.0) mg/dL Direct Bilirubin (0.0-0.2) mg/dL Indirect Bilirubin (0.0-1.2) mg/dL AST (13-39) Units/L ALT (7-52) Units/L Alkaline Phosphatase (34-104) Units/L Troponin I (< 0.04) ng/mL B-Natriuretic Peptide 884 H (Less than 100) pg/mL Serum Total Protein (6.4-8.9) g/dL Albumin (3.5-5.7) g/dL Globulin (2.4-3.5) g/dL Albumin/Globulin Ratio (1.1-2.2) Urine Color (Yellow) Urine Clarity (Clear) Urine pH (5.0-8.0) pH Units Ur Specific [place] (1.010-1.025) Urine Protein (Neg-Trace) mg/dL Urine Glucose (UA) (Normal) mg/dL Urine Ketones (Negative) mg/dL Urine Blood (Negative) Urine Nitrite (Negative) Urine Bilirubin (Negative) Urine Urobilinogen (Normal) mg/dL Ur Leukocyte Esterase (Negative) Urine Microscopic RBC (0-3) per hpf Urine Microscopic WBC (0-3) per hpf Ur Squamous Epith Cells (None-Few) per lpf Urine Bacteria (None-Few) per hpf Hyaline Casts (None-Few) per lpf Ur Culture Indicated? (NO) Attestation Statement - Attestation Attestation: I examined this patient and my medical decision-making was reviewed with the Resident Physician. I agree with the documented findings, disposition and treatment plan as described except to the extent set forth below. 41 year old female prsentes ot the eD ith comaplints of fluid overload. She has a history of CHF and states taht she was seen at [facility] CHf clinic and that she may need a pacemaker and she declined. Patient states that she is having minor diffiuclty in breathing now seoncdary to the fluid overload. hospitlist Dr. 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
--- NOTE | 2017-07-18 16:24 | Internal Med History&Physical ---
Date of Encounter: 07/18/17 Time of Encounter: 08:00 Internal Medicine - H&P: HPI Chief complaint: progressive also worsening lower extremity edema and abdominal wall edema History of present illness: Ms. Murphy is a 41 year old female Patient with history of CHF and reported EF less than 20% who was recently admitted to the hospital for further evaluation of congestive heart failure, she was treated with IV diuresis and then was discharged for further evaluation as an outpatient. She is presenting today with aggressive worsening of lower extremity edema as well as abdominal wall edema, She was previously followed at the [facility] CHF clinic and They recommended pacemaker placement and palliative care, However, she the declined that plan care of care and wanted a second opinion. Past Med Surg Social Fam HX - Past Medical History Medical history: non-contributory, CHF, diabetes, hypertension, other Psychiatric history: depression - Past Surgical History Surgical History: no surgical history, non-contributory - Social History Smoking Status: Former smoker Smokeless Tobacco Status: No Alcohol use: none Drug use: none - Family History Mother Living Status: Hx Family Cancer: Yes Father Living Status: Cause of : cancer/ bowel obstruction Hx Family Cardiac Disorders: No Hx Family Respiratory Disorders: No Hx Family Cancer: No Hx Family GI Disorders: No Hx Family Genitourinary Disorders: No Hx Family Endocrine Disorder: No Hx Family Musculoskeletal Disorders: No Hx Family Neuromuscular Disorders: No Hx Family Neurologic Disorders: No Hx Family HEENT Disorders: No Hx Family Autoimmune Disorders: No Hx Family Reproductive Disorders: No Hx Family Psychosocial Disorders: No Hx Family Medical Disorders: No Internal Medicine - H&P: Meds Carvedilol [Coreg] 50 mg PO BID 06/29/17 [History] Gabapentin [Neurontin] 300 mg PO BID 06/29/17 [History] Hydralazine HCl 100 mg PO TID 06/29/17 [History] Isosorbide DInitrate [Isosorbide Dinitrate] 30 mg PO TID 06/29/17 [History] Lisinopril-HCTZ 10-12.5 [Prinzide 10-12.5] 1 tab PO BID 06/29/17 [History] Sertraline [Zoloft] 100 mg PO DAILY 06/29/17 [History] Aspirin [Lo-Dose Aspirin EC] 81 mg PO DAILY 06/30/17 [History] Furosemide [Lasix] 80 mg PO DAILY #30 vial 07/03/17 [Rx] Cetirizine HCl 10 mg PO DAILY 07/18/17 [History] Levothyroxine [Synthroid] 75 mcg PO 0630 07/18/17 [History] OxyCODONE Immed Rel [Roxicodone 10 MG] 20 mg PO Q4H PRN 07/18/17 [History] 3 Allergy/AdvReac Type Severity Reaction Status Date / Time baclofen Allergy Diarrhea Verified 07/18/17 15:42 exenatide [From Byetta] Allergy Diarrhea Verified 07/18/17 15:42 sulfamethoxazole Allergy Rash Verified 07/18/17 15:42 [From Bactrim] trimethoprim [From Bactrim] Allergy Rash Verified 07/18/17 15:42 All Systems PM: A 10-system review of systems was performed and is negative for pertinent findings except as documented above in the HPI. - Constitutional Constitutional: fatigue, malaise, weakness, weight gain, no chills, no fever(s) , no night sweats - Cardiovascular Cardiovascular ROS IM: chest pain, dyspnea, dyspnea on exertion, edema, paroxysmal nocturnal dyspnea, no diaphoresis, no lightheadedness, no palpitations, no syncope - Respiratory Respiratory: dyspnea, no cough, no wheezing, no excessive phlegm production - Gastrointestinal Gastrointestinal: no abdominal pain, no diarrhea, no hematemesis, no hematochezia, no melena, no nausea, no vomiting - Neurological Neurological ROS: no confusion, no convulsions, no focal weakness, no numbness, no tingling, no tremor(s) - Constitutional Vitals: Temp Pulse Resp BP Pulse Ox 97.6 F 67 22 134/79 94 07/18/17 13:45 07/18/17 14:13 07/18/17 13:45 07/18/17 14:13 07/18/17 14:13 General appearance: Present: A&O X 3 - Head Head exam: Present: atraumatic, normocephalic - Neck Neck exam general surgery: Present: supple, trachea midline. Absent: lymphadenopathy - Respiratory Respiratory exam: Present: decreased breath sounds, rales, respiratory distress. Absent: accessory muscle use, rhonchi, wheezes - Cardiovascular Cardiovascular exam: Present: gallop, RRR, +S1, +S2, +S3, +S4. Absent: diastolic murmur, rubs, systolic murmur - GI/Abdominal GI/Abdominal exam: Present: normal bowel sounds, soft, no peritoneal signs. Absent: distended, tenderness - Extremities Exam Extremities exam: Present: pedal edema, warm, radial pulses palpable and symmetrical. Absent: calf tenderness, cyanotic Internal Med - H&P Results - Labs CBC & Chem 7: 07/28/17 16:46 07/28/17 16:46 Labs: Short CBC 07/18/17 Range/Units 14:39 WBC 6.2 (4.3-11.1) K/mcL Hgb 8.7 L (11.5-15.4) g/dL Hct 28.9 L (35.3-44.9) % Plt Count 222 (140-400) K/mcL Neutrophils # 5.2 (1.6-8.9) K/mcL BMP 07/18/17 14:39 Sodium 135 L Potassium 5.0 Chloride 100 Carbon Dioxide 22 L BUN 106 H Creatinine 3.47 H Glucose 242 H Calcium 7.6 L Cardiac Enzymes 07/18/17 Range/Units 14:39 Troponin I 0.03 (< 0.04) ng/mL Liver Function 07/18/17 Range/Units 14:39 Total Bilirubin 0.4 (0.3-1.0) mg/dL Direct Bilirubin 0.1 (0.0-0.2) mg/dL AST 15 (13-39) Units/L ALT 10 (7-52) Units/L Alkaline Phosphatase 119 H (34-104) Units/L Albumin 3.1 L (3.5-5.7) g/dL Urine 07/18/17 Range/Units 14:32 Urine Color Yellow (Yellow) Urine Clarity Turbid A (Clear) Urine pH 5.5 (5.0-8.0) pH Units Ur Specific [place] 1.018 (1.010-1.025) Urine Protein 30 H (Neg-Trace) mg/dL Urine Glucose (UA) Normal (Normal) mg/dL - Impressions ITS Impressions Chest X-Ray 07/18/17 13:59 IMPRESSION: No evidence for acute cardiopulmonary process. Stable exam with stable cardiomegaly. D/ / 07/18/2017 14:22:46 Amarjit Alfonso MD / ruby Interpreting Provider: Amarjit Alfonso MD Abdomen/Pelvis CT 07/18/17 14:03 IMPRESSION: 1. Diffuse anasarca. 2. Intra-abdominopelvic ascites. I suspect her findings of abdominal distention is secondary to the diffuse anasarca rather than the volume of intra-abdominal ascites. 3. Punctate nonobstructive left urolithiasis. 4. Cholelithiasis. 5. Small right pleural effusion with lower lobe atelectasis. D/ / Clark Gutierrez MD / Clark Gutierrez MD Interpreting Provider: Clark Gutierrez MD - Assessment and plan (1) Heart failure with reduced ejection fraction Current Visit: No Status: Deleted Assessment and plan: ASSESSMENT: - Progressive worsening of shortness of breath, lower extremity edema, abdominal wall edema in the sitting of CHF exacerbation and cardiomyopathy due to Noncompliance PLAN: - CPP x 1 more, 8 hr after the 1st one - EKG in AM - ASA - O2 to keep SpO2 > 92% - Lasix 80 mg IV BID, considered. Pure Ultrafiltration sessions for volume control. - Aerosols UD q 4 hr - UA - 2D Echo - CBCD, BMP in AM - Fasting lipids - Tylenol 650 mg PO q 4-6 hr PRN pain - Home meds - Heparin 5000 U SQ BID - Cardiology consult Qualifiers: Heart failure chronicity: acute on chronic Qualified Code(s): I50.23 - Acute on chronic systolic (congestive) heart failure (2) CHF (congestive heart failure), NYHA class III Current Visit: Yes Status: Acute Assessment and plan: We will start diuretics, repeat 2 D echo Qualifiers: Congestive heart failure type: systolic Congestive heart failure chronicity : acute on chronic Qualified Code(s): I50.23 - Acute on chronic systolic ( congestive) heart failure (3) Hypothyroid Current Visit: Yes Status: Acute Assessment and plan: We will cont home meds Qualifiers: 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 Qualified Code(s): E03.8 - Other specified hypothyroidism; E06.3 - Autoimmune thyroiditis; E06.3 - Autoimmune thyroiditis; E06.3 - Autoimmune thyroiditis (4) Cardiomyopathy Current Visit: Yes Status: Chronic Assessment and plan: We will repeat 2d echo Qualifiers: Cardiomyopathy type: unspecified Qualified Code(s): I42.9 - Cardiomyopathy , unspecified (5) Anasarca Current Visit: Yes Status: Acute (6) DMII (diabetes mellitus, type 2) Current Visit: Yes Status: Acute Assessment and plan: We will cont home meds and start ISS with moderate coverage Qualifiers: Diabetes mellitus long term care administrator insulin use: unspecified long term care administrator insulin use status Diabetes mellitus complication status: with kidney complications Diabetes mellitus complication detail: with chronic kidney disease Chronic kidney disease stage: stage 5, not on chronic dialysis Qualified Code(s): E11.22 - Type 2 diabetes mellitus with diabetic chronic kidney disease; N18.5 - Chronic kidney disease, stage 5 (7) HTN (hypertension) Current Visit: Yes Status: Chronic Assessment and plan: We will cont home meds Qualifiers: Hypertension type: essential hypertension Qualified Code(s): I10 - Essential (primary) hypertension (8) Morbid obesity Current Visit: Yes Status: Chronic (9) KAYA (acute kidney injury) Current Visit: Yes Status: Deleted Assessment and plan: most likely secondary to decreased forward flow in the setting of cardiorenal syndrome, we will consult nephrology to consider pure ultrafiltration for volume control (10) CKD (chronic kidney disease) Current Visit: Yes Status: Chronic Assessment and plan: Due to diabetic nephropathy, and also multiple nephropathy. Qualifiers: Chronic kidney disease stage: unspecified stage Qualified Code(s): N18.9 - Chronic kidney disease, unspecified (11) DVT prophylaxis Current Visit: Yes Status: Acute Assessment and plan: SC heparin - Time Spent With Patient Total time spent is greater than 50% in coordination of care (as documented) at patient's floor/unit and/or counseling patient:
[2017-07-18] MEDS ORDERED: Naloxone 0.4 MG/ML INJ IVP PRN (19:04)
[2017-07-18] MEDS ORDERED: Acetaminophen 325 MG TABLET PO PRN (19:04)
[2017-07-18] MEDS: Gabapentin 300 MG CAPSULE PO SCH (20:37)
[2017-07-18] MEDS: hydrALAZINE 25 MG TABLET PO SCH (20:37)
[2017-07-18] MEDS: Furosemide 80 MG in 0.9 % Sodium Chloride 50 ML IVPB SCH (20:38)
[2017-07-18] MEDS: *HR* OxyCODONE Immed Rel 5 MG TABLET PO PRN (21:45)
[2017-07-19 05:27] LABS: Basophils % 0.5 %; Eosinophils # 0.1 K/mcL (0.0-0.6); Eosinophils % 2.4 %; Hematocrit 27.3 % (35.3-44.9); Hemoglobin 8.4 g/dL (11.5-15.4); Immature Granulocytes % 0.4 % (0-4); Lymphocytes # 0.3 K/mcL (0.6-4.6); Lymphocytes % 5.5 %; Mean Corpuscular HGB Conc 30.8 g/dL (31.6-35.5); Mean Corpuscular Hemoglobin 28.7 pg (28.0-33.3); Mean Corpuscular Volume 93.2 fL (83.0-100.0); Mean Platelet Volume 11.7 fL (9.4-12.4); Monocytes # 0.6 K/mcL (0.0-1.3); Monocytes % 10.6 %; Neutrophils # 4.4 K/mcL (1.6-8.9); Platelet Count 214 K/mcL (140-400); Red Blood Count 2.93 M/mcL (3.82-4.97); Red Cell Distribution Width 14.7 % (11.5-14.5); Segmented Neutrophils % 80.6 %
[2017-07-19] MEDS ORDERED: Dextrose Gel 15 GM/37.5 ML TUBE PO PRN ×2 (05:48)
[2017-07-19] MEDS ORDERED: D5% in Water 1,000 ML IVC PRN (05:48)
[2017-07-19] MEDS ORDERED: *HR* Dextrose 50 % in Water (Syg) 50 ML SYRINGE IVP PRN (05:48)
[2017-07-19 05:49] LABS: Albumin/Globulin Ratio 0.6 (1.1-2.2); Bilirubin,Total 0.4 mg/dL (0.3-1.0); Calcium 7.8 mg/dL (8.6-10.3); Chol/HDL Ratio 3.4 (0-4.9); Globulin 4.8 g/dL (2.4-3.5); Magnesium 1.6 mg/dL (1.6-2.6); Phosphorous 5.7 mg/dL (2.7-4.5); Potassium 4.4 mEq/L (3.5-5.1); Total Protein 7.8 g/dL (6.4-8.9)
[2017-07-19 06:00] LABS: INR 1.3; Prothrombin Time 13.6 Seconds (9.4-12.1)
[2017-07-19 06:03] LABS: Activated Partial Thrombo Time 28.9 Seconds (26.0-36.0)
[2017-07-19] MEDS ORDERED: 0.9 % Sodium Chloride 250 ML IVC PRN (08:04)
[2017-07-19] MEDS: Gabapentin 300 MG CAPSULE PO SCH ×2 (08:11→21:59)
[2017-07-19] MEDS: Aspirin Enteric Coated 81 MG Tablet PO SCH (08:12)
[2017-07-19] MEDS: Loratadine 10 MG TABLET PO SCH (08:12)
[2017-07-19] MEDS: hydrALAZINE 25 MG TABLET PO SCH ×3 (08:20→21:59)
[2017-07-19] MEDS: *HR* OxyCODONE Immed Rel 5 MG TABLET PO PRN ×4 (08:20→23:15)
[2017-07-19] MEDS: Insulin LISPRO 300 UNITS/3 ML VIAL SQ SCH ×5 (08:21→22:00)
[2017-07-19] MEDS: Furosemide 80 MG in 0.9 % Sodium Chloride 50 ML IVPB SCH (08:21)
[2017-07-19 10:19] LABS: Hepatitis B Surface Antigen Nonreactive (Nonreactive)
--- NOTE | 2017-07-19 10:35 | Nephrology Consult Note ---
Addendum entered and electronically signed by Edgard Davila DO 12:36: I have personally performed a face to face evaluation on this patient. I have reviewed and agree with the care plan. History and Exam by me shows: Marcie Murphy is a very pleasant 41 y/o WF who presented with ADHF with known advanced chronic HF and progressive renal decline. She was originally worked up recently with Dr. Martin during an earlier hospitalization. She has unfortunately continue to decline with a vicious cycle of worsening edema, more diuretics and worsening SCr. She has indications for starting SPECIAL EDUCATION DIRECTOR for fluid overload. I counseled her for >50% of the encounter about the indications, benefits (and risks/alternatives) for dialysis options. Will start with a temporary HD catheter; and I've consulted IR. Will stop the lasix and allow for UF to remove her massive extracellular fluid. On exam, she has tense LE edema and impressive ascites/abdominal girth. Continue to follow a renal protective strategy by avoiding nephrotoxins as able. Thank you for consulting the [facility]; will follow with you. Original Note: Date of Encounter: 07/19/17 Time of Encounter: 10:29 Assessment and Plan (1) CKD (chronic kidney disease) Current Visit: Yes Status: Chronic KAYA on CKD 4. Spoke with patient and about dialysis, they agree but want to speak with Dr. Davila. Advised patient not to eat or drink until we decide if she needs a line today. Continue to avoid nephrotoxins and renal dose medications. Renal Diet. Qualifiers: Chronic kidney disease stage: unspecified stage Qualified Code(s): N18.9 - Chronic kidney disease, unspecified (2) Anasarca Current Visit: Yes Status: Acute Was evaluated for paracentesis, not a "large" enough pocket to drain. Per primary. (3) CHF (congestive heart failure), NYHA class III Current Visit: No Status: Acute Per primary team. Qualifiers: Congestive heart failure type: systolic Congestive heart failure chronicity : acute on chronic Qualified Code(s): I50.23 - Acute on chronic systolic ( congestive) heart failure History of Present Illness - Reason for Consult Consult date: 07/19/17 Acute Kidney Injury - Chief Complaint CHF - History of Present Illness Ms. Murphy is an unfortunate 41 year old female with PMH: CHF with EF approximately 20%. She was hospitalized 2 weeks ago for edema, given IV lasix and sent home. She has gained a considerable amount of fluid weight at home, and decided to come to ED last night because she could not ambulate. She reports there was clear fluid seeping out of bilateral feet at home. Her GFR has worsened over time, in 2017 it was 59 and now it is 15. Has not seen a evaluator transfer students in the outpatient setting, but was seen by Dr. Martin and Dr. Davila in the hospital. Her Cali is at the bedside both are good historians. Past Med Surg Social Fam HX - Past Medical History Medical history: non-contributory, CHF, diabetes, hypertension, other Psychiatric history: depression - Past Surgical History Surgical History: no surgical history, non-contributory - Social History Smoking Status: Former smoker Smokeless Tobacco Status: No Alcohol use: none Drug use: none - Family History Mother Living Status: Cause of : cancer; throat Hx Family Cardiac Disorders: No Hx Family Respiratory Disorders: No Hx Family Cancer: Yes Hx Family GI Disorders: No Hx Family Genitourinary Disorders: No Hx Family Endocrine Disorder: Yes (thyroid) Hx Family Musculoskeletal Disorders: No Hx Family Neuromuscular Disorders: No Hx Family Neurologic Disorders: No Hx Family HEENT Disorders: No Hx Family Autoimmune Disorders: No Hx Family Reproductive Disorders: No Hx Family Psychosocial Disorders: No Hx Family Medical Disorders: No Father Living Status: Cause of : cancer/ bowel obstruction Hx Family Cardiac Disorders: No Hx Family Respiratory Disorders: No Hx Family Cancer: No Hx Family GI Disorders: No Hx Family Genitourinary Disorders: No Hx Family Endocrine Disorder: No Hx Family Musculoskeletal Disorders: No Hx Family Neuromuscular Disorders: No Hx Family Neurologic Disorders: No Hx Family HEENT Disorders: No Hx Family Autoimmune Disorders: No Hx Family Reproductive Disorders: No Hx Family Psychosocial Disorders: No Hx Family Medical Disorders: No Medications and Allergies Carvedilol [Coreg] 50 mg PO BID 06/29/17 [History] Gabapentin [Neurontin] 300 mg PO BID 06/29/17 [History] Hydralazine HCl 100 mg PO TID 06/29/17 [History] Isosorbide DInitrate [Isosorbide Dinitrate] 30 mg PO TID 06/29/17 [History] Lisinopril-HCTZ 10-12.5 [Prinzide 10-12.5] 1 tab PO BID 06/29/17 [History] Sertraline [Zoloft] 100 mg PO DAILY 06/29/17 [History] Aspirin [Lo-Dose Aspirin EC] 81 mg PO DAILY 06/30/17 [History] Furosemide [Lasix] 80 mg PO DAILY #30 vial 07/03/17 [Rx] Cetirizine HCl 10 mg PO DAILY 07/18/17 [History] Levothyroxine [Synthroid] 75 mcg PO 0630 07/18/17 [History] OxyCODONE Immed Rel [Roxicodone 10 MG] 20 mg PO Q4H PRN 07/18/17 [History] 3 Allergy/AdvReac Type Severity Reaction Status Date / Time baclofen Allergy Diarrhea Verified 07/18/17 15:42 exenatide [From Byetta] Allergy Diarrhea Verified 07/18/17 15:42 sulfamethoxazole Allergy Rash Verified 07/18/17 15:42 [From Bactrim] trimethoprim [From Bactrim] Allergy Rash Verified 07/18/17 15:42 Review of Systems Constitutional: fatigue, no chills, no fever(s) Cardiovascular: dyspnea, edema, no chest pain, no irregular heart rhythm Respiratory: dyspnea, no hemoptysis Gastrointestinal: no abdominal pain, no constipation Genitourinary Female: no urinary frequency, no urinary hesitancy, no urinary incontinence Exam - Vital Signs Vital signs: Initial Vital Signs Temp Pulse Resp BP Pulse Ox 97.6 F 67 22 137/79 92 07/18/17 13:45 07/18/17 13:45 07/18/17 13:45 07/18/17 13:45 07/18/17 13:45 Vital Signs - Last 8 Hours Temp Pulse Resp BP Pulse Ox 07/19/17 08:10 90 07/19/17 07:52 97.7 F 73 18 117/75 90 07/19/17 02:43 97.9 F 74 18 147/73 95 Intake and Output 07/18/17 07/19/17 07/19/17 23:59 07:59 15:59 Intake Total 58 / 58 Output Total 400 / 400 1100 / 1100 200 / 200 Balance -342 / -342 -1100 / -1100 -200 / -200 Intake: IV Fluids 58 / 58 Lasix 80 MG In 0.9 % Sodium 58 / 58 Chloride 50 ML @ 100 mls/hr IVPB BID BOWEN Rx#:[id number] Output: Urine 400 / 400 1100 / 1100 200 / 200 Other: # Voids 1 Weight 157.4 kg 157.4 kg Blood Glucose* 242 251 Patient Weight 07/19/17 23:59 Weight 157.4 kg - General Appearance General appearance: obese EENT: ATNC Respiratory: clear Cardiology: edema (+ 3 edema noted to BLE's.), normal S1, normal S2 Gastrointestinal: normoactive bowel sounds, no tenderness, obese Additional Comments: Distended, firm (-) fluid wave. Integumentary: no rash, warm and dry Neurologic: alert and oriented x3 Results - Lab Results 07/19/17 04:23 07/19/17 04:23 Most recent lab results Calcium 7.8 mg/dL (8.6-10.3) L 07/19/17 04:23 Phosphorus 5.7 mg/dL (2.7-4.5) H 07/19/17 04:23 Magnesium 1.6 mg/dL (1.6-2.6) 07/19/17 04:23 Consult Discharge Plan - Plan Referrals: Nathaniel Martin MD [Partnered Physician] - 08/25/17 1:00 pm Timo Bravo CNP [Advanced Practice Nurse] - 07/21/17 11:15 am Ramiro Vargas DO [Primary Care Provider] - 08/18/17 3:15 pm
--- NOTE | 2017-07-19 10:50 | Cardiology Consult Note ---
Date of Encounter: 07/19/17 Time of Encounter: 09:30 Assessment and Plan (1) Biventricular heart failure with reduced left ventricular function Current Visit: Yes Status: Chronic Per cardiology: -Known bi-ventricular heart failure. --TTE 04/27/17 from [facility] reviewed with LV mildly dilated, mild concentric LVH, diffuse global hypokinesis, LVEF 25-30%, septal flattening of the interventricular septum consistent with RV volume overload, RV is mildly dilated with mildly reduced global systolic function, RA mildly dilated, mild TR , trivial pericardial effusion. -Per review of [facility] records, LHC was not performed due to renal function. Nuclear stress test was performed without evidence of ischemia. Cardiomyopathy thought to be non-ischemic. -TTE [facility] 06/30/17 with LVEF 30-35%, mildly dilated mildly hypokinetic RV. -BNP 1104. -Diffuse anasarca noted. -Reports 40 pound weight gain since beginning of June. Reports was on lasix 80mg daily at home. -On lasix 80mg IV BID. On hydralazine and imdur. -Net negative 1400ml since admission. -Strict I/os, fluid restriction, daily weights. -Agree with IV diuresis. -Will continue to monitor. (2) Cardiomyopathy Current Visit: No Status: Chronic Per cardiology: -Known cardiomyopathy, last TTE as above. -ON BB (coreg). Not on halie/arb due to renal function. -Does not have ICD, was recommended by [facility] and patient refused. -Did not have LHC performed due to renal function. Underwent stress at [facility], negative. Cardiomyopathy thought to be non-ischemic. -Will continue to monitor. Qualifiers: Cardiomyopathy type: unspecified Qualified Code(s): I42.9 - Cardiomyopathy , unspecified (3) CKD (chronic kidney disease) Current Visit: Yes Status: Chronic Per cardiology: -Renal function 3.43. -Nephroogy following. -Appreciate nephrology input. -Management per primary and nephrology services. Qualifiers: Chronic kidney disease stage: unspecified stage Qualified Code(s): N18.9 - Chronic kidney disease, unspecified Discussion w patient/family: The assessment and plan as outlined above was discussed with the patient and/or family members who expressed understanding and agreement. All questions were answered. Thank you for involving us in the care of your patient. Please call with any questions. Discussed and reviewed with . History of Present Illness Consult date: 07/18/17 Requesting physician: Caity Crews Consult reason: CHF Chief complaint: swelling History of present illness: Ms. Murphy is a 41 year old female with a relevant past medical history of CHF , BIV heart failure, CKD, DM, HTN who presented to [facility] with complaints of increased swelling. Previously seen at [facility] and diagnosed with CHF. Patient was recently admitted to [facility] with CHF the beginning of this month and per patient and , she has gained 40 pounds since discharge. Patient and report increased abdominal girth, increased lower extremity edema. Pateint and report compliance with fluid and sodium restriction at home. Patient states "I'm just not getting any better." Patient and frustrated regarding lack of progress in her condition. Past Med Surg Social Fam HX - Past Medical History Attestation: Yes The following information was validated with the patient. Source: patient, old records reviewed, obtained from family Medical history: non-contributory, cardiomyopathy, CHF, diabetes, hypertension, other Psychiatric history: depression - Past Surgical History Surgical History: no surgical history, non-contributory - Social History Smoking Status: Former smoker Smokeless Tobacco Status: No Alcohol use: none Drug use: none - Family History Mother Living Status: Cause of : cancer; throat Hx Family Cardiac Disorders: No Hx Family Respiratory Disorders: No Hx Family Cancer: Yes Hx Family GI Disorders: No Hx Family Genitourinary Disorders: No Hx Family Endocrine Disorder: Yes (thyroid) Hx Family Musculoskeletal Disorders: No Hx Family Neuromuscular Disorders: No Hx Family Neurologic Disorders: No Hx Family HEENT Disorders: No Hx Family Autoimmune Disorders: No Hx Family Reproductive Disorders: No Hx Family Psychosocial Disorders: No Hx Family Medical Disorders: No Father Living Status: Cause of : cancer/ bowel obstruction Hx Family Cardiac Disorders: No Hx Family Respiratory Disorders: No Hx Family Cancer: No Hx Family GI Disorders: No Hx Family Genitourinary Disorders: No Hx Family Endocrine Disorder: No Hx Family Musculoskeletal Disorders: No Hx Family Neuromuscular Disorders: No Hx Family Neurologic Disorders: No Hx Family HEENT Disorders: No Hx Family Autoimmune Disorders: No Hx Family Reproductive Disorders: No Hx Family Psychosocial Disorders: No Hx Family Medical Disorders: No Medications and Allergies Carvedilol [Coreg] 50 mg PO BID 06/29/17 [History] Gabapentin [Neurontin] 300 mg PO BID 06/29/17 [History] Hydralazine HCl 100 mg PO TID 06/29/17 [History] Isosorbide DInitrate [Isosorbide Dinitrate] 30 mg PO TID 06/29/17 [History] Lisinopril-HCTZ 10-12.5 [Prinzide 10-12.5] 1 tab PO BID 06/29/17 [History] Sertraline [Zoloft] 100 mg PO DAILY 06/29/17 [History] Aspirin [Lo-Dose Aspirin EC] 81 mg PO DAILY 06/30/17 [History] Furosemide [Lasix] 80 mg PO DAILY #30 vial 07/03/17 [Rx] Cetirizine HCl 10 mg PO DAILY 07/18/17 [History] Levothyroxine [Synthroid] 75 mcg PO 0630 07/18/17 [History] OxyCODONE Immed Rel [Roxicodone 10 MG] 20 mg PO Q4H PRN 07/18/17 [History] 3 Allergy/AdvReac Type Severity Reaction Status Date / Time baclofen Allergy Diarrhea Verified 07/18/17 15:42 exenatide [From Byetta] Allergy Diarrhea Verified 07/18/17 15:42 sulfamethoxazole Allergy Rash Verified 07/18/17 15:42 [From Bactrim] trimethoprim [From Bactrim] Allergy Rash Verified 07/18/17 15:42 All Systems Review: The remainder of the systems were reviewed and are negative - Constitutional Constitutional: weight gain - Cardiovascular Cardiovascular: as per HPI, dyspnea at rest, dyspnea on exertion, leg edema Physical Examination Vital Signs, Last 4 Hours Temp Pulse Resp BP Pulse Ox 07/19/17 08:10 90 07/19/17 07:52 97.7 F 73 18 117/75 90 General: Conversant, Other (Conversational dyspnea noted. ) HEENT: Atraumatic, Normocephaly, Mucus Membranes Moist Neck: No JVD, Normal carotid pulses Cardiac: Reg Rate and Rhythm, Normal S1 and S2, No Murmur Lungs: Other (Patient refused respiratory assessment. ) Neuro: Alert and responsive, No focal deficits noted Abdomen: Other (Hard, tender. ) Skin: No rashes noted on visualized skin Musculoskeletal: No Chest Wall Tenderness Extremities: No Clubbing, No Cyanosis, Normal Pulses, Other (Diffuse anasarca, 1 + pitting to lower extremities. ) Results 07/19/17 04:23 07/19/17 04:23 Lab Results Impressions Chest X-Ray 07/18/17 13:59 IMPRESSION: No evidence for acute cardiopulmonary process. Stable exam with stable cardiomegaly. D/ / 07/18/2017 14:22:46 Amarjit Alfonso MD / ruby Interpreting Provider: Amarjit Alfonso MD Abdomen/Pelvis CT 07/18/17 14:03 IMPRESSION: 1. Diffuse anasarca. 2. Intra-abdominopelvic ascites. I suspect her findings of abdominal distention is secondary to the diffuse anasarca rather than the volume of intra-abdominal ascites. 3. Punctate nonobstructive left urolithiasis. 4. Cholelithiasis. 5. Small right pleural effusion with lower lobe atelectasis. D/ / Clark Gutierrez MD / Clark Gutierrez MD Interpreting Provider: Clark Gutierrez MD Active Medications Acetaminophen (Tylenol) 650 mg PO Q6HR PRN PRN Reason: Mild Pain/Fever Stop: 01/17/18 19:05 Aspirin (Aspirin Ec) 81 mg PO DAILY [facility] Stop: 01/18/18 09:01 Last Admin: 07/19/17 08:12 Dose: 81 mg Carvedilol (Coreg) 50 mg PO BID [facility] PRN Reason: Protocol Stop: 01/17/18 21:01 Last Admin: 07/19/17 08:11 Dose: 50 mg Dextrose/Water (Dextrose 50% (Syg)) 25 ml IVP AD PRN PRN Reason: Hypoglycemia Stop: 01/18/18 05:49 Gabapentin (Neurontin) 300 mg PO BID [facility] Stop: 01/17/18 21:01 Last Admin: 07/19/17 08:11 Dose: 300 mg Glucagon (Glucagen) 1 mg IM ONCE PRN PRN Reason: Hypoglycemia Stop: 01/18/18 05:49 Glucose (Gluctose) 15 gm PO ONCE PRN PRN Reason: Hypoglycemia Stop: 01/18/18 05:49 Glucose (Gluctose) 30 gm PO ONCE PRN PRN Reason: Hypoglycemia Stop: 01/18/18 05:49 Hydralazine HCl (Hydralazine) 100 mg PO TID [facility] Stop: 01/17/18 21:01 Last Admin: 07/19/17 08:20 Dose: 100 mg Furosemide 80 mg/ Sodium (Chloride) 58 mls @ 100 mls/hr IVPB BID [facility] Stop: 01/17/18 21:01 Last Admin: 07/19/17 08:21 Dose: 100 mls/hr Dextrose (Dextrose 5%) 1,000 mls @ 100 mls/hr IVC .Q10H PRN PRN Reason: HYPOGLYCEMIA Stop: 01/18/18 05:49 Sodium Chloride (0.9 % Sodium Chloride) 250 mls @ 937.5 mls/hr IVC .Q16M PRN PRN Reason: Hypotension Stop: 01/18/18 08:05 Insulin Human Lispro (Humalog) 0 units SQ HS [facility] PRN Reason: Protocol Stop: 01/18/18 21:01 Insulin Human Lispro (Humalog) 0 units SQ TIDAC [facility] PRN Reason: Protocol Stop: 01/18/18 07:31 Last Admin: 07/19/17 08:21 Dose: 8 units Isosorbide Dinitrate (Isordil) 30 mg PO TID [facility] Stop: 01/17/18 21:01 Last Admin: 07/19/17 08:11 Dose: 30 mg Levothyroxine Sodium (Synthroid) 75 mcg PO 0630 [facility] Stop: 01/18/18 06:31 Last Admin: 07/19/17 05:09 Dose: 75 mcg Loratadine (Claritin) 10 mg PO DAILY [facility] Stop: 01/18/18 09:01 Last Admin: 07/19/17 08:12 Dose: 10 mg Naloxone HCl (Narcan) 0.4 mg IVP Q2MIN PRN PRN Reason: SEE COMMENTS Stop: 01/17/18 19:05 Oxycodone HCl (Roxicodone) 20 mg PO Q4H PRN PRN Reason: Pain Last Admin: 07/19/17 08:20 Dose: 5 mg Sertraline HCl (Zoloft) 100 mg PO DAILY [facility] Stop: 01/18/18 09:01 Last Admin: 07/19/17 08:11 Dose: 100 mg Laboratory Tests 07/02/17 07/03/17 07/18/17 05:29 04:33 14:39 Hgb Creatinine 2.79 H 2.72 H Troponin I 0.03 B-Natriuretic Peptide 07/18/17 07/18/17 07/19/17 14:39 20:59 04:23 Hgb Creatinine Troponin I 0.03 0.03 B-Natriuretic Peptide 884 H 07/19/17 07/19/17 07/19/17 04:23 04:23 04:23 Hgb 8.4 L Creatinine 3.43 H Troponin I B-Natriuretic Peptide 1104 H - Imaging and Cardiology Chest Xray: report reviewed Echo: report reviewed - EKG Interpretation EKG results cardiology: personally reviewed (ECG with SR, HR 66.), other ( Telemetry reviewed with average HR previous 12 hours noted to be 72, SR. PACs noted.) Consult Discharge Plan - Plan Referrals: Ntahaniel Martin MD [Partnered Physician] - 08/25/17 1:00 pm Timo Bravo CNP [Advanced Practice Nurse] - 07/21/17 11:15 am Ramiro Vargas DO [Primary Care Provider] - 08/18/17 3:15 pm
[2017-07-19] MEDS ORDERED: *HR* Heparin 5,000 UNIT/ML VIAL ONE ×2 (11:49→15:11)
[2017-07-19 12:24] LABS: Estimated Average Glucose 163 mg/dl; Hemoglobin A1C 7.3 %
[2017-07-19] MEDS ORDERED: 0.9 % Sodium Chloride 2,000 ML ONE (15:11)
[2017-07-19] MEDS ORDERED: *HR* Heparin 10,000 UNIT/10 ML VIAL IV PRN (15:46)
--- NOTE | 2017-07-19 17:07 | Electrocardiograph Report ---
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
--- NOTE | 2017-07-19 19:46 | Internal Med Progress Note ---
Date of Encounter: 07/19/17 Time of Encounter: 17:00 - Assessment and plan (1) CHF (congestive heart failure), NYHA class III Current Visit: Yes Status: Acute Assessment and plan: Acute exacerbation of systolic heart failure. Patient's obviously in fluid overload with anasarca, +2-3 pitting edema in bilateral lower extremities. Patient reports shortness of breath. BNP elevated at 1104. Chest x-ray showed no evidence of acute cardiopulmonary process, stable exam with stable cardiomegaly. Echocardiogram dated 06/30/17 showed reduced ejection fraction of 30-35%, mildly dilated LV, global LV systolic dysfunction, grossly, mildly dilated and hypokinetic right ventricle, mild TR. Continue telemetry Lasix has been held by nephrology Ultrafiltration started today to remove extracellular fluid. Nephrology following along. I appreciate the recommendations and consultation. Qualifiers: Congestive heart failure type: systolic Congestive heart failure chronicity : acute on chronic Qualified Code(s): I50.23 - Acute on chronic systolic ( congestive) heart failure (2) Cardiomyopathy Current Visit: Yes Status: Chronic Assessment and plan: Per echocardiogram. Plan as above. Qualifiers: Cardiomyopathy type: unspecified Qualified Code(s): I42.9 - Cardiomyopathy , unspecified (3) KAYA (acute kidney injury) Current Visit: Yes Status: Acute Assessment and plan: Patient with worsening renal function over the last few months. Serum creatinine 3.43/GFR 15 creatinine is increased of her normal baseline of around 2.7, GFR has been declining since April. Nephrology is on board Ultrafiltration initiated today. Lasix has been held Continue to avoid nephrotoxins. (4) CKD (chronic kidney disease) Current Visit: Yes Status: Chronic Assessment and plan: Chronic. Ultrafiltration initiated today. Due to uncontrolled diabetes. Plan as above. Qualifiers: Chronic kidney disease stage: unspecified stage Qualified Code(s): N18.9 - Chronic kidney disease, unspecified (5) Hypothyroid Current Visit: Yes Status: Acute Assessment and plan: Chronic. Continue home dose of levothyroxine. 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 Continue to monitor and continue home medications. Qualifiers: Hypertension type: essential hypertension Qualified Code(s): I10 - Essential (primary) hypertension (7) DMII (diabetes mellitus, type 2) Current Visit: Yes Status: Acute Assessment and plan: A1c 7.3%. Continue sliding scale insulin, Accu-Cheks before meals and at bedtime, diabetic and renal diet. Qualifiers: Diabetes mellitus adjunct faculty for medical terminology insulin use: unspecified [facility] insulin use status Diabetes mellitus complication status: with kidney complications Diabetes mellitus complication detail: with chronic kidney disease Chronic kidney disease stage: stage 5, not on chronic dialysis Qualified Code(s): E11.22 - Type 2 diabetes mellitus with diabetic chronic kidney disease; N18.5 - Chronic kidney disease, stage 5 (8) Anasarca Current Visit: Yes Status: Acute (9) Heart failure with reduced ejection fraction Current Visit: No Status: Acute Assessment and plan: Plan as above. Qualifiers: Heart failure chronicity: acute on chronic Qualified Code(s): I50.23 - Acute on chronic systolic (congestive) heart failure (10) Morbid obesity Current Visit: Yes Status: Chronic Assessment and plan: BMI 61.5. Attempt to encourage lifestyle modifications. Patient likely unable to exercise, patient could benefit from a lowered calorie diet. (11) DVT prophylaxis Current Visit: Yes Status: Acute Assessment and plan: Heparin subcutaneous twice daily. - Time Spent With Patient Total time spent is greater than 50% in coordination of care (as documented) at patient's floor/unit and/or counseling patient: less than 15 minutes - Subjective Interval history: Patient was seen and assessed in dialysis at 1700. She appeared to be drowsy, answered questions appropriately. She denies any headache, blurred vision, chest pain or shortness of breath. She denies any abdominal pain, nausea, vomiting, diarrhea. Patient's abdomen is very large, rounded, distended and firm. She states that this is not normal for her. Patient has +2-3 pitting edema to bilateral lower extremities. - Constitutional Vitals: Temp Pulse Resp BP Pulse Ox 97.8 F 76 16 146/86 93 07/19/17 18:20 07/19/17 18:20 07/19/17 18:20 07/19/17 18:20 07/19/17 18:20 General appearance: Present: cooperative, A&O X 3, morbidly obese, pleasant, no acute distress, answers questions appropriately - Head Head exam: Present: atraumatic, normal inspection, normocephalic - Eye Eye exam: Present: normal appearance, conjuntiva pink, sclera anicteric - Neck Neck exam general surgery: Present: supple, trachea midline. Absent: lymphadenopathy - Respiratory Respiratory exam: Present: decreased breath sounds, CTAB. Absent: accessory muscle use, chest wall tenderness, rales, respiratory distress, rhonchi, wheezes - Cardiovascular Cardiovascular exam: Present: RRR, +S1, +S2. Absent: diastolic murmur, gallop, rubs, systolic murmur - GI/Abdominal GI/Abdominal exam: Present: distended, firm, normal bowel sounds, soft. Absent : hepatomegaly, tenderness - Extremities Exam Extremities exam: Present: pedal edema, warm, radial pulses palpable and symmetrical. Absent: calf tenderness, cyanotic, normal capillary refill, normal inspection, tenderness - Neurological Exam Neurological exam: Present: alert, oriented X3, no focal deficits. Absent: facial droop, speech deficit - Skin Skin exam: Present: dry, intact, normal color, warm. Absent: rash Internal Medicine: Result - Labs CBC & Chem 7: 07/19/17 04:23 07/19/17 04:23 Labs: Short CBC 07/19/17 Range/Units 04:23 WBC 5.5 (4.3-11.1) K/mcL Hgb 8.4 L (11.5-15.4) g/dL Hct 27.3 L (35.3-44.9) % Plt Count 214 (140-400) K/mcL Neutrophils # 4.4 (1.6-8.9) K/mcL BMP 07/19/17 04:23 Sodium 135 L Potassium 4.4 Chloride 99 Carbon Dioxide 25 BUN 106 H Creatinine 3.43 H Glucose 285 H Calcium 7.8 L Cardiac Enzymes 07/18/17 07/19/17 07/19/17 Range/Units 20:59 04:23 10:57 Troponin I 0.03 0.03 0.03 (< 0.04) ng/mL Liver Function 07/19/17 07/19/17 Range/Units 04:23 04:23 Total Bilirubin 0.4 (0.3-1.0) mg/dL AST 9 L (13-39) Units/L ALT 9 (7-52) Units/L Alkaline Phosphatase 114 H (34-104) Units/L Albumin 3.2 L 3.0 L (3.5-5.7) g/dL - ABG Interpretation ABG results: PT/INR, D-dimer PT 13.6 Seconds (9.4-12.1) H 07/19/17 04:23 - Impressions Impressions Guidance Needle Placement Ultrasound 07/19/17 00:00 IMPRESSION: Successful ultrasound guided non-tunneled catheter placement. D/ / William Couch MD / William Couch MD Interpreting Provider: William Couch MD Insertion Non-Tunneled Catheter 07/19/17 00:00 IMPRESSION: Successful ultrasound guided non-tunneled catheter placement. D/ / William Couch MD / William Couch MD Interpreting Provider: William Couch MD Chest X-Ray 07/19/17 12:01 IMPRESSION: Hemodialysis catheter tip terminates near the cavoatrial junction. No pneumothorax. D/ / Aris Guerrero / Aris Guerrero Interpreting Provider: Aris Guerrero Consult Discharge Plan - Plan Referrals: Nathaniel Martin MD [Partnered Physician] - 08/25/17 1:00 pm Timo Bravo CNP [Advanced Practice Nurse] - 07/21/17 11:15 am Ramiro Vargas DO [Primary Care Provider] - 08/18/17 3:15 pm
[2017-07-20 06:29] LABS: Basophils % 0.4 %; Eosinophils # 0.2 K/mcL (0.0-0.6); Eosinophils % 3.6 %; Hematocrit 26.6 % (35.3-44.9); Hemoglobin 8.4 g/dL (11.5-15.4); Immature Granulocytes % 0.4 % (0-4); Lymphocytes # 0.4 K/mcL (0.6-4.6); Lymphocytes % 6.7 %; Mean Corpuscular HGB Conc 31.6 g/dL (31.6-35.5); Mean Corpuscular Hemoglobin 29.6 pg (28.0-33.3); Mean Corpuscular Volume 93.7 fL (83.0-100.0); Mean Platelet Volume 11.9 fL (9.4-12.4); Monocytes # 0.7 K/mcL (0.0-1.3); Monocytes % 12.7 %; Neutrophils # 4.1 K/mcL (1.6-8.9); Platelet Count 206 K/mcL (140-400); Red Blood Count 2.84 M/mcL (3.82-4.97); Red Cell Distribution Width 14.6 % (11.5-14.5); Segmented Neutrophils % 76.2 %
[2017-07-20 06:45] LABS: Calcium 7.9 mg/dL (8.6-10.3); Magnesium 1.6 mg/dL (1.6-2.6); Phosphorous 4.9 mg/dL (2.7-4.5); Potassium 4.1 mEq/L (3.5-5.1); Uric Acid 8.8 mg/dL (2.3-7.6)
[2017-07-20] MEDS ORDERED: 0.9 % Sodium Chloride 250 ML IVC PRN (07:09)
[2017-07-20] MEDS: Insulin LISPRO 300 UNITS/3 ML VIAL SQ SCH ×4 (07:45→22:08)
[2017-07-20] MEDS: hydrALAZINE 25 MG TABLET PO SCH ×3 (09:34→22:07)
[2017-07-20] MEDS: *HR* OxyCODONE Immed Rel 5 MG TABLET PO PRN ×3 (09:37→22:19)
[2017-07-20] MEDS: Loratadine 10 MG TABLET PO SCH (09:37)
[2017-07-20] MEDS: Aspirin Enteric Coated 81 MG Tablet PO SCH (09:37)
[2017-07-20] MEDS: Gabapentin 300 MG CAPSULE PO SCH ×2 (09:37→22:07)
--- NOTE | 2017-07-20 09:54 | Nephrology Progress Note ---
Date of Encounter: 07/20/17 Time of Encounter: 09:51 - Assessment and Plan (1) CKD (chronic kidney disease) Current Visit: Yes Status: Chronic Day 2 of Consecutive HD. Scr and GFR improved, which is expected with HD. Will plan on UF for tomorrow. Continue to renal dose and avoid nephrotoxins as possible. Qualifiers: Chronic kidney disease stage: unspecified stage Qualified Code(s): N18.9 - Chronic kidney disease, unspecified (2) Anasarca Current Visit: Yes Status: Acute Plan for UF tomorrow. (3) CHF (congestive heart failure), NYHA class III Current Visit: Yes Status: Acute Per primary team. Qualifiers: Congestive heart failure type: systolic Congestive heart failure chronicity : acute on chronic Qualified Code(s): I50.23 - Acute on chronic systolic ( congestive) heart failure (4) Anemia Current Visit: Yes Status: Acute Goal Hgb 10-11. HGB 8.4 today. Will do Iron studies. Qualifiers: Qualified Code(s): D64.9 - Anemia, unspecified Subjective Principal diagnosis: Worsening Renal Function. Interval history: Pt seen and examined in HD. No CP/SOB, nausea, vomiting. Objective - Vital Signs Vital signs: Vital Signs Temp Pulse Resp BP Pulse Ox 07/20/17 06:35 98.1 F 68 14 158/80 93 07/20/17 03:16 98.2 F 70 16 135/73 94 07/19/17 22:48 98.0 F 75 18 133/80 93 07/19/17 18:20 97.8 F 76 16 146/86 93 07/19/17 17:20 98.8 F 22 149/73 07/19/17 17:05 143/67 07/19/17 16:50 145/99 07/19/17 16:35 146/66 07/19/17 16:20 141/84 07/19/17 16:05 149/74 07/19/17 15:50 145/74 07/19/17 15:35 165/95 07/19/17 15:20 135/93 07/19/17 15:05 158/96 07/19/17 14:50 98.7 F 22 159/89 07/19/17 11:24 98.0 F 69 16 146/84 91 Intake and Output 0507/20/17 07/20/17 23:59 07:59 15:59 Intake Total 1140 / 1140 360 / 360 Output Total 3900 / 3900 200 / 200 Balance -2760 / -2760 -200 / -200 360 / 360 Intake: Oral 1140 / 1140 360 / 360 Output: Urine 300 / 300 200 / 200 Total Dialysis (HD) Output 3600 / 3600 Other: Meal Dinner Breakfast Percent of Meal Consumed 50% 100% Weight 153.9 kg Blood Glucose* 189 162 Hemodialysis Net Fluid Removed 3600 (mL) Patient Weight 07/20/17 23:59 Weight 153.9 kg - General Appearance General appearance: Present: obese EENT: Present: hearing intact, vision intact Neck: Present: supple Respiratory: Present: clear Cardiology: Present: edema (Tight, painful + 2 pitting edema BLE's.), normal S1 , normal S2 Dialysis Vascular Access: Venous Catheter (Right Temp line, DRSG C/D/I.) Gastrointestinal: Present: normoactive bowel sounds, no tenderness, distended Integumentary: Present: no rash, warm and dry Neurologic: Present: alert and oriented x3 Psychiatric: Present: mood/affect appropriate, cooperative - Lab 07/20/17 05:40 07/20/17 05:40 Most recent lab results Calcium 7.9 mg/dL (8.6-10.3) L 07/20/17 05:40 Phosphorus 4.9 mg/dL (2.7-4.5) H 07/20/17 05:40 Magnesium 1.6 mg/dL (1.6-2.6) 07/20/17 05:40 Consult Discharge Plan - Plan Referrals: Nathaniel Martin MD [Partnered Physician] - 08/25/17 1:00 pm Timo Bravo CNP [Advanced Practice Nurse] - 07/21/17 11:15 am Rmairo Vargas DO [Primary Care Provider] - 08/18/17 3:15 pm
--- NOTE | 2017-07-20 10:12 | Cardiology Progress Note ---
Date of Encounter: 07/20/17 Time of Encounter: 09:30 Assessment and Plan (1) Biventricular heart failure with reduced left ventricular function Current Visit: Yes Status: Chronic Per cardiology: -Known bi-ventricular heart failure. --TTE 04/27/17 from [facility] reviewed with LV mildly dilated, mild concentric LVH, diffuse global hypokinesis, LVEF 25-30%, septal flattening of the interventricular septum consistent with RV volume overload, RV is mildly dilated with mildly reduced global systolic function, RA mildly dilated, mild TR , trivial pericardial effusion. -Per review of [facility] records, LHC was not performed due to renal function. Nuclear stress test was performed without evidence of ischemia. Cardiomyopathy thought to be non-ischemic. -TTE [facility] 06/30/17 with LVEF 30-35%, mildly dilated mildly hypokinetic RV. -BNP 1104. -Diffuse anasarca noted. -ON BB, on nitrates, hydralalzine. -S/p Ultrafiltration yesteday, currently net negative 4600ml. IV diuresis held per nephrology due to ultrafiltration. -Strict I/os, fluid restriction, daily weights. -If dialysis becomes permanent, can consider addition of halie/arb or entresto. -Will continue to monitor. (2) Cardiomyopathy Current Visit: Yes Status: Chronic Per cardiology: -Known cardiomyopathy, last TTE as above. -ON BB (coreg). Not on halie/arb due to renal function. -Does not have ICD, was recommended by [facility] and patient refused. -Did not have LHC performed due to renal function. Underwent stress at [facility], negative. Cardiomyopathy thought to be non-ischemic. -Will continue to monitor. Qualifiers: Qualified Code(s): I42.9 - Cardiomyopathy, unspecified (3) CKD (chronic kidney disease) Current Visit: Yes Status: Chronic Per cardiology: -Renal function improved today. -Nephrology following. -S/p temporary HD catheter placement and ultrafiltration yesterday -Management per primary and nephrology services. Qualifiers: Qualified Code(s): N18.9 - Chronic kidney disease, unspecified Discussion w patient/family: The assessment and plan as outlined above was discussed with the patient and/or family members who expressed understanding and agreement. All questions were answered. Thank you for involving us in the care of your patient. Please call with any questions. Discussed and reviewed with . Subjective Principal diagnosis: Biventricular heart failure Interval history: Patient is s/p ultrafiltration. Patient reports she feels much better since fluid removal. Objective Vital Signs, Last 4 Hours Temp Pulse Resp BP Pulse Ox 07/20/17 09:35 93 07/20/17 06:35 98.1 F 68 14 158/80 93 General: Conversant, No Apparent Distress HEENT: Atraumatic, Normocephaly, Mucus Membranes Moist Neck: No JVD, Normal carotid pulses Cardiac: Reg Rate and Rhythm, Normal S1 and S2, No Murmur Lungs: Other (Refused respiratory assessment. ) Neuro: Alert and responsive, No focal deficits noted Abdomen: Other (Hard, tender) Skin: No rashes noted on visualized skin Musculoskeletal: No Chest Wall Tenderness Extremities: No Clubbing, No Cyanosis, Normal Pulses, Other (1+ bilateral lower extremity pitting edema noted. ) Results 07/20/17 05:40 07/20/17 05:40 Lab Results Impressions Guidance Needle Placement Ultrasound 07/19/17 00:00 IMPRESSION: Successful ultrasound guided non-tunneled catheter placement. D/ / William Couch MD / William Couch MD Interpreting Provider: William Couch MD Insertion Non-Tunneled Catheter 07/19/17 00:00 IMPRESSION: Successful ultrasound guided non-tunneled catheter placement. D/ / William Couch MD / William Couch MD Interpreting Provider: William Couch MD Chest X-Ray 07/19/17 12:01 IMPRESSION: Hemodialysis catheter tip terminates near the cavoatrial junction. No pneumothorax. D/ / Aris Guerrero / Aris Guerrero Interpreting Provider: Aris Guerrero Active Medications Acetaminophen (Tylenol) 650 mg PO Q6HR PRN PRN Reason: Mild Pain/Fever Stop: 01/17/18 19:05 Aspirin (Aspirin Ec) 81 mg PO DAILY [facility] Stop: 01/18/18 09:01 Last Admin: 07/20/17 09:37 Dose: 81 mg Carvedilol (Coreg) 50 mg PO BID [facility] PRN Reason: Protocol Stop: 01/17/18 21:01 Last Admin: 07/20/17 09:34 Dose: Not Given Dextrose/Water (Dextrose 50% (Syg)) 25 ml IVP AD PRN PRN Reason: Hypoglycemia Stop: 01/18/18 05:49 Gabapentin (Neurontin) 300 mg PO BID [facility] Stop: 01/17/18 21:01 Last Admin: 07/20/17 09:37 Dose: 300 mg Glucagon (Glucagen) 1 mg IM ONCE PRN PRN Reason: Hypoglycemia Stop: 01/18/18 05:49 Glucose (Gluctose) 15 gm PO ONCE PRN PRN Reason: Hypoglycemia Stop: 01/18/18 05:49 Glucose (Gluctose) 30 gm PO ONCE PRN PRN Reason: Hypoglycemia Stop: 01/18/18 05:49 Heparin Sodium (Porcine) (Heparin) 0 unit IV ONCE PRN PRN Reason: Hemodialysis Catheter Packing Hydralazine HCl (Hydralazine) 100 mg PO TID [facility] Stop: 01/17/18 21:01 Last Admin: 07/20/17 09:34 Dose: Not Given Dextrose (Dextrose 5%) 1,000 mls @ 100 mls/hr IVC .Q10H PRN PRN Reason: HYPOGLYCEMIA Stop: 01/18/18 05:49 Sodium Chloride (0.9 % Sodium Chloride) 250 mls @ 937.5 mls/hr IVC .Q16M PRN PRN Reason: Hypotension Stop: 01/19/18 07:10 Insulin Human Lispro (Humalog) 0 units SQ HS [facility] PRN Reason: Protocol Stop: 01/18/18 21:01 Last Admin: 07/19/17 22:00 Dose: Not Given Insulin Human Lispro (Humalog) 0 units SQ TIDAC [facility] PRN Reason: Protocol Stop: 01/18/18 07:31 Last Admin: 07/20/17 07:45 Dose: Not Given Isosorbide Dinitrate (Isordil) 30 mg PO TID [facility] Stop: 01/17/18 21:01 Last Admin: 07/20/17 09:38 Dose: 30 mg Levothyroxine Sodium (Synthroid) 75 mcg PO 0630 [facility] Stop: 01/18/18 06:31 Last Admin: 07/20/17 05:48 Dose: 75 mcg Loratadine (Claritin) 10 mg PO DAILY [facility] Stop: 01/18/18 09:01 Last Admin: 07/20/17 09:37 Dose: 10 mg Naloxone HCl (Narcan) 0.4 mg IVP Q2MIN PRN PRN Reason: SEE COMMENTS Stop: 01/17/18 19:05 Oxycodone HCl (Roxicodone) 20 mg PO Q4H PRN PRN Reason: Pain Last Admin: 07/20/17 09:37 Dose: 10 mg Sertraline HCl (Zoloft) 100 mg PO DAILY [facility] Stop: 01/18/18 09:01 Last Admin: 07/20/17 09:37 Dose: 100 mg Laboratory Tests 07/20/17 07/20/17 05:40 05:40 Hgb 8.4 L Creatinine 2.85 H - Imaging and Cardiology Chest Xray: report reviewed Echo: report reviewed - EKG Interpretation EKG results cardiology: other (Telemetry reviewed with average HR previous 12 hours noted to be 71, SR. PVCs and PACs noted.) Consult Discharge Plan - Plan Referrals: Nathaniel Martin MD [Partnered Physician] - 08/25/17 1:00 pm Timo Bravo CNP [Advanced Practice Nurse] - 07/21/17 11:15 am Ramiro Vargas DO [Primary Care Provider] - 08/18/17 3:15 pm
[2017-07-20 11:36] LABS: % Iron Saturation 11 % (15-50); Iron 34 mcg/dL (50-170); Transferrin 219 mg/dL (203-362)
[2017-07-20 12:02] LABS: Folate 16.6 ng/mL (3.0-16.0)
--- NOTE | 2017-07-20 19:32 | Internal Med Progress Note ---
Date of Encounter: 07/20/17 Time of Encounter: 19:00 - Assessment and plan (1) CHF (congestive heart failure), NYHA class III Current Visit: Yes Status: Acute Assessment and plan: Acute exacerbation of biventricular heart failure. Patient in fluid overload with anasarca, +2-3 pitting edema in bilateral lower extremities. Patient reports shortness of breath. BNP elevated at 1104. Chest x-ray showed no evidence of acute cardiopulmonary process, stable exam with stable cardiomegaly. Echocardiogram dated 06/30/17 showed reduced ejection fraction of 30-35%, mildly dilated LV, global LV systolic dysfunction, grossly, mildly dilated and hypokinetic right ventricle, mild TR. Diuresis has been held by nephrology due to ultrafiltration. Net diuresis 4.6 liters. Continue telemetry Lasix has been held by nephrology Ultrafiltration for last 2 days, will repeat tomorrow. Nephrology and cardiology following along. I appreciate the recommendations and consultation. Qualifiers: Congestive heart failure type: systolic Congestive heart failure chronicity : acute on chronic Qualified Code(s): I50.23 - Acute on chronic systolic ( congestive) heart failure (2) Cardiomyopathy Current Visit: Yes Status: Chronic Assessment and plan: Per echocardiogram, LVEF 30-35%, mildly dilated mildly hypokinetic right ventricle. Plan as above. Per cardiology note: Patient refused ICD at [facility]. Patient did not have LHC due to renal function but did have a negative stress at [facility] and cardiomyopathy is thought to be nonischemic. Continue telemetry. Qualifiers: Cardiomyopathy type: unspecified Qualified Code(s): I42.9 - Cardiomyopathy , unspecified (3) KAYA (acute kidney injury) Current Visit: Yes Status: Acute Assessment and plan: Patient has had temporary HD catheter placement Serum creatinine 2.85/GFR 18 improved. Nephrology is on board Ultrafiltration for last 2 days, plan for more UF tomorrow. Lasix has been held due to UF. Continue to avoid nephrotoxins. (4) CKD (chronic kidney disease) Current Visit: Yes Status: Chronic Assessment and plan: Chronic. Ultrafiltration for last 2 days, plan for UF tomorrow. Plan as above. Qualifiers: Chronic kidney disease stage: unspecified stage Qualified Code(s): N18.9 - Chronic kidney disease, unspecified (5) Hypothyroid Current Visit: Yes Status: Acute Assessment and plan: Chronic. Continue home medication. 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 Qualifiers: Hypertension type: essential hypertension Qualified Code(s): I10 - Essential (primary) hypertension (7) DMII (diabetes mellitus, type 2) Current Visit: Yes Status: Acute Assessment and plan: Uncontrolled. Continue sliding scale insulin, Accu-Cheks before meals and at bedtime, diabetic and renal diet. Qualifiers: Diabetes mellitus snf insulin use: unspecified snf insulin use status Diabetes mellitus complication status: with kidney complications Diabetes mellitus complication detail: with chronic kidney disease Chronic kidney disease stage: stage 5, not on chronic dialysis Qualified Code(s): E11.22 - Type 2 diabetes mellitus with diabetic chronic kidney disease; N18.5 - Chronic kidney disease, stage 5 (8) Anasarca Current Visit: Yes Status: Acute Assessment and plan: UF 07/19, , . (9) Heart failure with reduced ejection fraction Current Visit: No Status: Acute Assessment and plan: Plan as above. Qualifiers: Heart failure chronicity: acute on chronic Qualified Code(s): I50.23 - Acute on chronic systolic (congestive) heart failure (10) Morbid obesity Current Visit: Yes Status: Chronic Assessment and plan: BMI 60.1. Attempt to encourage lifestyle modifications. (11) DVT prophylaxis Current Visit: Yes Status: Acute Assessment and plan: Heparin - Time Spent With Patient Total time spent is greater than 50% in coordination of care (as documented) at patient's floor/unit and/or counseling patient: less than 15 minutes - Subjective Interval history: Patient was seen and assessed in dialysis at 1900. She is alert, oriented, answered questions appropriately. She denies any headache, blurred vision, chest pain or shortness of breath. She denies any abdominal pain, nausea, vomiting, diarrhea. Patient's abdomen is very large, rounded, distended and firm, she states that it has improved. Patient has +2-3 pitting edema to bilateral lower extremities, left greater than right, which pt also states is normal for her. - Constitutional Vitals: Temp Pulse Resp BP Pulse Ox 98.0 F 72 18 135/85 90 07/20/17 19:24 07/20/17 19:24 07/20/17 19:24 07/20/17 19:24 07/20/17 19:24 General appearance: Present: cooperative, A&O X 3, morbidly obese, pleasant, no acute distress, answers questions appropriately - Head Head exam: Present: atraumatic, normal inspection, normocephalic - Eye Eye exam: Present: normal appearance, conjuntiva pink, sclera anicteric - Neck Neck exam general surgery: Present: supple, trachea midline. Absent: lymphadenopathy, tenderness - Respiratory Respiratory exam: Present: CTAB. Absent: accessory muscle use, rales, rhonchi, wheezes - Cardiovascular Cardiovascular exam: Present: RRR, +S1, +S2. Absent: diastolic murmur, gallop, rubs, systolic murmur - GI/Abdominal GI/Abdominal exam: Present: distended, firm, normal bowel sounds, rigid. Absent : tenderness - Extremities Exam Extremities exam: Present: pedal edema, warm, radial pulses palpable and symmetrical. Absent: calf tenderness, cyanotic, normal capillary refill, normal inspection - Neurological Exam Neurological exam: Present: alert, oriented X3, no focal deficits. Absent: altered, facial droop, speech deficit - Skin Skin exam: Present: dry, intact, normal color, warm. Absent: rash Internal Medicine: Result - Labs CBC & Chem 7: 07/20/17 05:40 07/20/17 05:40 Labs: Short CBC 07/20/17 Range/Units 05:40 WBC 5.3 (4.3-11.1) K/mcL Hgb 8.4 L (11.5-15.4) g/dL Hct 26.6 L (35.3-44.9) % Plt Count 206 (140-400) K/mcL Neutrophils # 4.1 (1.6-8.9) K/mcL BMP 07/20/17 05:40 Sodium 136 Potassium 4.1 Chloride 99 Carbon Dioxide 27 BUN 82 H Creatinine 2.85 H Glucose 176 H Calcium 7.9 L Liver Function 07/20/17 Range/Units 05:40 Albumin 3.0 L (3.5-5.7) g/dL - ABG Interpretation ABG results: PT/INR, D-dimer PT 13.6 Seconds (9.4-12.1) H 07/19/17 04:23 Consult Discharge Plan - Plan Referrals: Nathaniel Martin MD [Partnered Physician] - 08/25/17 1:00 pm Timo Bravo CNP [Advanced Practice Nurse] - 07/21/17 11:15 am Ramiro Vargas DO [Primary Care Provider] - 08/18/17 3:15 pm
[2017-07-21] MEDS: Insulin LISPRO 300 UNITS/3 ML VIAL SQ SCH ×4 (08:05→23:50)
[2017-07-21 08:06] LABS: Basophils % 0.4 %; Eosinophils # 0.2 K/mcL (0.0-0.6); Eosinophils % 3.8 %; Hematocrit 27.6 % (35.3-44.9); Hemoglobin 8.4 g/dL (11.5-15.4); Immature Granulocytes % 0.2 % (0-4); Lymphocytes # 0.3 K/mcL (0.6-4.6); Lymphocytes % 6.1 %; Mean Corpuscular HGB Conc 30.4 g/dL (31.6-35.5); Mean Corpuscular Hemoglobin 28.5 pg (28.0-33.3); Mean Corpuscular Volume 93.6 fL (83.0-100.0); Mean Platelet Volume 11.4 fL (9.4-12.4); Monocytes # 0.6 K/mcL (0.0-1.3); Monocytes % 13.4 %; Neutrophils # 3.6 K/mcL (1.6-8.9); Platelet Count 185 K/mcL (140-400); Red Blood Count 2.95 M/mcL (3.82-4.97); Red Cell Distribution Width 14.7 % (11.5-14.5); Segmented Neutrophils % 76.1 %
[2017-07-21] MEDS: Aspirin Enteric Coated 81 MG Tablet PO SCH (08:06)
[2017-07-21] MEDS: Loratadine 10 MG TABLET PO SCH (08:06)
[2017-07-21] MEDS: Gabapentin 300 MG CAPSULE PO SCH ×2 (08:06→23:44)
[2017-07-21] MEDS: *HR* OxyCODONE Immed Rel 5 MG TABLET PO PRN ×3 (08:11→23:45)
[2017-07-21] MEDS ORDERED: 0.9 % Sodium Chloride 250 ML IVC PRN ×2 (08:17→19:43)
[2017-07-21] MEDS ORDERED: *HR* Heparin 10,000 UNIT/10 ML VIAL IV PRN (08:54)
[2017-07-21] MEDS ORDERED: 0.9 % Sodium Chloride 1,000 ML ONE (09:31)
--- NOTE | 2017-07-21 09:53 | Nephrology Progress Note ---
Date of Encounter: 07/21/17 Time of Encounter: 09:51 - Assessment and Plan (1) CKD (chronic kidney disease) Current Visit: Yes Status: Chronic UF today, possible HD tomorrow. BMP had to be recollected, no results at this time. Continue to renal dose and avoid nephrotoxins as possible. Qualifiers: Chronic kidney disease stage: unspecified stage Qualified Code(s): N18.9 - Chronic kidney disease, unspecified (2) Anasarca Current Visit: Yes Status: Acute Plan for UF today. (3) CHF (congestive heart failure), NYHA class III Current Visit: Yes Status: Acute Per primary team. Qualifiers: Congestive heart failure type: systolic Congestive heart failure chronicity : acute on chronic Qualified Code(s): I50.23 - Acute on chronic systolic ( congestive) heart failure (4) Anemia Current Visit: Yes Status: Acute Goal Hgb 10-11. HGB 8.4 today, stable. Will consider adding Aranesp. Qualifiers: Qualified Code(s): D64.9 - Anemia, unspecified Subjective Principal diagnosis: Worsening Renal Function. Interval history: Pt seen and examined in HD, was tolerating UF. No CP/SOB, nausea, vomiting. Objective - Vital Signs Vital signs: Vital Signs Temp Pulse Resp BP Pulse Ox 07/21/17 07:12 97.9 F 67 16 153/89 94 07/21/17 03:37 98.3 F 90 18 136/87 90 07/20/17 23:43 98.2 F 71 17 146/77 92 07/20/17 19:24 98.0 F 72 18 135/85 90 07/20/17 15:22 98.1 F 72 14 146/79 92 07/20/17 14:20 97.7 F 15 139/74 07/20/17 13:10 131/71 07/20/17 12:55 147/73 07/20/17 12:40 137/74 07/20/17 12:25 128/75 07/20/17 12:10 131/74 07/20/17 11:55 140/78 07/20/17 11:40 144/79 07/20/17 11:25 131/75 07/20/17 11:10 142/69 07/20/17 10:55 137/74 07/20/17 10:40 140/76 07/20/17 10:25 143/70 07/20/17 10:10 98.1 F 15 136/76 Intake and Output 07/20/17 07/21/17 07/21/17 23:59 07:59 15:59 Intake Total 120 / 120 Output Total 200 / 200 200 / 200 Balance 120 / 120 -200 / -200 -200 / -200 Intake: Oral 120 / 120 Output: Urine 200 / 200 200 / 200 Other: Meal Dinner Percent of Meal Consumed 100% Stool Size Small Small Stool Consistency formed formed Stool Color Shashi Colored Brown Green # Voids 1 # Bowel Movements 1 1 Weight 153.1 kg Blood Glucose* 213 188 Patient Weight 07/21/17 23:59 Weight 153.1 kg - General Appearance General appearance: Present: obese, chronically ill, frail EENT: Present: ATNC, hearing intact, vision intact Neck: Present: supple Respiratory: Present: clear Cardiology: Present: edema (+1 pitting BLE.), normal S1, normal S2 Dialysis Vascular Access: Venous Catheter (Right neck, DRSG C/D/I.) Gastrointestinal: Present: normoactive bowel sounds, no tenderness, obese, distended Additional Comments: Firm, distended obese abdomen. Integumentary: Present: no rash, warm and dry Neurologic: Present: alert and oriented x3 Psychiatric: Present: mood/affect appropriate, depressed (Appears depressed. ), cooperative - Lab 07/21/17 07:27 07/21/17 07:27 Most recent lab results Calcium 7.9 mg/dL (8.6-10.3) L 07/20/17 05:40 Phosphorus 4.9 mg/dL (2.7-4.5) H 07/20/17 05:40 Magnesium 1.6 mg/dL (1.6-2.6) 07/20/17 05:40 Consult Discharge Plan - Plan Referrals: Nathaniel Martin MD [Partnered Physician] - 08/25/17 1:00 pm Timo Bravo CNP [Advanced Practice Nurse] - 07/21/17 11:15 am Ramiro Vargas DO [Primary Care Provider] - 08/18/17 3:15 pm
[2017-07-21 10:08] LABS: Calcium 8.3 mg/dL (8.6-10.3); Potassium 4.1 mEq/L (3.5-5.1)
--- NOTE | 2017-07-21 11:42 | Internal Med Progress Note ---
Date of Encounter: 07/21/17 Time of Encounter: 11:40 - Assessment and plan (1) CHF (congestive heart failure), NYHA class III Current Visit: Yes Status: Acute Assessment and plan: Acute exacerbation of biventricular heart failure. Patient in fluid overload with anasarca, +2-3 pitting edema in bilateral lower extremities. Patient reports shortness of breath. BNP elevated at 1104. Chest x-ray showed no evidence of acute cardiopulmonary process, stable exam with stable cardiomegaly. Echocardiogram dated 06/30/17 showed reduced ejection fraction of 30-35%, mildly dilated LV, global LV systolic dysfunction, grossly, mildly dilated and hypokinetic right ventricle, mild TR. Currently undergoing hemodialysis. Cardiology and nephrology following Qualifiers: Congestive heart failure type: systolic Congestive heart failure chronicity : acute on chronic Qualified Code(s): I50.23 - Acute on chronic systolic ( congestive) heart failure (2) Cardiomyopathy Current Visit: Yes Status: Chronic Assessment and plan: Per echocardiogram, LVEF 30-35%, mildly dilated mildly hypokinetic right ventricle. Plan as above. Per cardiology note: Patient refused ICD at [facility]. Patient did not have LHC due to renal function but did have a negative stress at [facility] and cardiomyopathy is thought to be nonischemic. Continue telemetry. Qualifiers: Cardiomyopathy type: unspecified Qualified Code(s): I42.9 - Cardiomyopathy , unspecified (3) KAYA (acute kidney injury) Current Visit: Yes Status: Acute Assessment and plan: Patient has had temporary HD catheter placement Serum creatinine 2.85/GFR 18 improved. Nephrology is on board Ultrafiltration for last 2 days, plan for more UF today Lasix has been held due to UF. Continue to avoid nephrotoxins. (4) CKD (chronic kidney disease) Current Visit: Yes Status: Chronic Assessment and plan: Chronic. Ultrafiltration for last 2 days, plan for UF today. Plan as above. Qualifiers: Chronic kidney disease stage: unspecified stage Qualified Code(s): N18.9 - Chronic kidney disease, unspecified (5) Hypothyroid Current Visit: Yes Status: Acute Assessment and plan: Chronic. Continue home medication. 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 Qualifiers: Hypertension type: essential hypertension Qualified Code(s): I10 - Essential (primary) hypertension (7) DMII (diabetes mellitus, type 2) Current Visit: Yes Status: Acute Assessment and plan: Uncontrolled. Continue sliding scale insulin, Accu-Cheks before meals and at bedtime, diabetic and renal diet. Qualifiers: Diabetes mellitus detention insulin use: unspecified detention insulin use status Diabetes mellitus complication status: with kidney complications Diabetes mellitus complication detail: with chronic kidney disease Chronic kidney disease stage: stage 5, not on chronic dialysis Qualified Code(s): E11.22 - Type 2 diabetes mellitus with diabetic chronic kidney disease; N18.5 - Chronic kidney disease, stage 5 (8) Anasarca Current Visit: Yes Status: Acute Assessment and plan: UF 07/19, , . (9) Heart failure with reduced ejection fraction Current Visit: No Status: Acute Assessment and plan: Plan as above. Qualifiers: Heart failure chronicity: acute on chronic Qualified Code(s): I50.23 - Acute on chronic systolic (congestive) heart failure (10) Morbid obesity Current Visit: Yes Status: Chronic Assessment and plan: BMI 60.1. Attempt to encourage lifestyle modifications. (11) DVT prophylaxis Current Visit: Yes Status: Acute Assessment and plan: Heparin - Time Spent With Patient Total time spent is greater than 50% in coordination of care (as documented) at patient's floor/unit and/or counseling patient: - Subjective Interval history: No acute events overnight - Constitutional Vitals: Temp Pulse Resp BP Pulse Ox 97.0 F L 67 18 133/69 94 07/21/17 09:15 07/21/17 07:12 07/21/17 09:15 07/21/17 11:00 07/21/17 08:15 General appearance: Present: cooperative, A&O X 3, morbidly obese, pleasant, no acute distress, answers questions appropriately - Head Head exam: Present: atraumatic, normocephalic - Eye Eye exam: Present: PERRL, conjuntiva pink, sclera anicteric Pupils: Present: PERRL - Neck Neck exam general surgery: Present: supple, trachea midline. Absent: lymphadenopathy - Respiratory Respiratory exam: Present: CTAB. Absent: accessory muscle use, rales, rhonchi, wheezes - Cardiovascular Cardiovascular exam: Present: RRR, +S1, +S2. Absent: diastolic murmur, gallop, rubs, systolic murmur - GI/Abdominal GI/Abdominal exam: Present: normal bowel sounds, soft, no peritoneal signs. Absent: distended, tenderness - Extremities Exam Extremities exam: Present: warm, radial pulses palpable and symmetrical. Absent : calf tenderness, cyanotic, pedal edema - Neurological Exam Neurological exam: Present: CN II-XII intact, oriented X3, no focal deficits. Absent: pronater drift, facial droop, speech deficit - Skin Skin exam: Present: dry, intact Internal Medicine: Result - Labs CBC & Chem 7: 07/21/17 07:27 07/21/17 09:59 Labs: Short CBC 07/21/17 Range/Units 07:27 WBC 4.8 (4.3-11.1) K/mcL Hgb 8.4 L (11.5-15.4) g/dL Hct 27.6 L (35.3-44.9) % Plt Count 185 (140-400) K/mcL Neutrophils # 3.6 (1.6-8.9) K/mcL BMP 07/21/17 07:27 Sodium 134 L Potassium 4.1 Chloride 99 Carbon Dioxide 27 BUN 60 H Creatinine 2.51 H Glucose 200 H Calcium 8.3 L - ABG Interpretation ABG results: PT/INR, D-dimer PT 13.6 Seconds (9.4-12.1) H 07/19/17 04:23 Consult Discharge Plan - Plan Referrals: Nathaniel Martin MD [Partnered Physician] - 08/25/17 1:00 pm Timo Bravo CNP [Advanced Practice Nurse] - 07/21/17 11:15 am Ramiro Vargas DO [Primary Care Provider] - 08/18/17 3:15 pm
[2017-07-21] MEDS: hydrALAZINE 25 MG TABLET PO SCH ×3 (13:02→23:43)
[2017-07-21 13:18] LABS: Calcium 8.3 mg/dL (8.6-10.3); Potassium 4.1 mEq/L (3.5-5.1)
--- NOTE | 2017-07-21 14:47 | Cardiology Progress Note ---
Date of Encounter: 07/21/17 Time of Encounter: 14:30 Assessment and Plan (1) Biventricular heart failure with reduced left ventricular function Current Visit: Yes Status: Chronic Per cardiology: -Known bi-ventricular heart failure. --TTE 04/27/17 from [facility] reviewed with LV mildly dilated, mild concentric LVH, diffuse global hypokinesis, LVEF 25-30%, septal flattening of the interventricular septum consistent with RV volume overload, RV is mildly dilated with mildly reduced global systolic function, RA mildly dilated, mild TR , trivial pericardial effusion. -Per review of [facility] records, LHC was not performed due to renal function. Nuclear stress test was performed without evidence of ischemia. Cardiomyopathy thought to be non-ischemic. -TTE [facility] 06/30/17 with LVEF 30-35%, mildly dilated mildly hypokinetic RV. -BNP 1104. -Diffuse anasarca noted. -ON BB, on nitrates, hydralalzine. -S/p Ultrafiltration/HD x3 days, currently net negative 10,000ml. IV diuresis held per nephrology due to ultrafiltration. -Strict I/os, fluid restriction, daily weights. -If dialysis becomes permanent, can consider addition of halie/arb or entresto. -Suspect will need advanced heart failure therapies as outpatient. -Cardiology will sign off and will follow closely in outpatient setting. Follow up set. (2) Cardiomyopathy Current Visit: Yes Status: Chronic Per cardiology: -Known cardiomyopathy, last TTE as above. -ON BB (coreg). Not on halie/arb due to renal function. -Does not have ICD, was recommended by [facility] and patient refused. -Did not have LHC performed due to renal function. Underwent stress at [facility], negative. Cardiomyopathy thought to be non-ischemic. Qualifiers: Cardiomyopathy type: unspecified Qualified Code(s): I42.9 - Cardiomyopathy , unspecified (3) CKD (chronic kidney disease) Current Visit: Yes Status: Chronic Per cardiology: -Renal function improved today. -Nephrology following. -S/p temporary HD catheter placement and ultrafiltration/HD. -Management per primary and nephrology services. Qualifiers: Chronic kidney disease stage: unspecified stage Qualified Code(s): N18.9 - Chronic kidney disease, unspecified Discussion w patient/family: The assessment and plan as outlined above was discussed with the patient who expressed understanding and agreement. All questions were answered. Thank you for involving us in the care of your patient. Please call with any questions. Discussed and reviewed with . Subjective Principal diagnosis: Biventricular CHF Interval history: Patient is s/p ultrafiltration. Patient reports she feels much better since fluid removal. Objective Vital Signs, Last 4 Hours Temp Resp BP 07/21/17 13:30 177/100 07/21/17 12:55 97.2 F L 18 141/75 07/21/17 12:45 127/64 07/21/17 12:30 121/61 07/21/17 12:15 113/55 07/21/17 12:00 132/62 07/21/17 11:45 111/54 07/21/17 11:30 111/65 07/21/17 11:15 121/68 07/21/17 11:00 133/69 General: Conversant, No Apparent Distress HEENT: Atraumatic, Normocephaly, Mucus Membranes Moist Neck: No JVD, Normal carotid pulses Cardiac: Reg Rate and Rhythm, Normal S1 and S2, No Murmur Lungs: Other (Refused respiratory assesment. ) Neuro: Alert and responsive, No focal deficits noted Abdomen: Other (Taught) Skin: No rashes noted on visualized skin Musculoskeletal: No Chest Wall Tenderness Extremities: No Clubbing, No Cyanosis, Normal Pulses, Other (Bilateral lower extremity edema noted. ) Results 07/21/17 07:27 07/21/17 09:59 Lab Results Active Medications Acetaminophen (Tylenol) 650 mg PO Q6HR PRN PRN Reason: Mild Pain/Fever Stop: 01/17/18 19:05 Aspirin (Aspirin Ec) 81 mg PO DAILY BOWEN Stop: 01/18/18 09:01 Last Admin: 07/21/17 08:06 Dose: 81 mg Carvedilol (Coreg) 50 mg PO BID BOWEN PRN Reason: Protocol Stop: 01/17/18 21:01 Last Admin: 07/21/17 13:30 Dose: 50 mg Darbepoetin [place] (Aranesp) 60 mcg SQ Th [facility]OWEN Stop: 01/20/18 10:31 Last Admin: 07/21/17 13:30 Dose: 60 mcg Dextrose/Water (Dextrose 50% (Syg)) 25 ml IVP AD PRN PRN Reason: Hypoglycemia Stop: 01/18/18 05:49 Gabapentin (Neurontin) 300 mg PO BID [facility] Stop: 01/17/18 21:01 Last Admin: 07/21/17 08:06 Dose: 300 mg Glucagon (Glucagen) 1 mg IM ONCE PRN PRN Reason: Hypoglycemia Stop: 01/18/18 05:49 Glucose (Gluctose) 15 gm PO ONCE PRN PRN Reason: Hypoglycemia Stop: 01/18/18 05:49 Glucose (Gluctose) 30 gm PO ONCE PRN PRN Reason: Hypoglycemia Stop: 01/18/18 05:49 Heparin Sodium (Porcine) (Heparin) 0 unit IV ONCE PRN PRN Reason: Hemodialysis Catheter Packing Hydralazine HCl (Hydralazine) 100 mg PO TID [facility] Stop: 01/17/18 21:01 Last Admin: 07/21/17 13:02 Dose: Not Given Dextrose (Dextrose 5%) 1,000 mls @ 100 mls/hr IVC .Q10H PRN PRN Reason: HYPOGLYCEMIA Stop: 01/18/18 05:49 Sodium Chloride (0.9 % Sodium Chloride) 250 mls @ 937.5 mls/hr IVC .Q16M PRN PRN Reason: Hypotension Stop: 01/20/18 08:18 Insulin Human Lispro (Humalog) 0 units SQ HS [facility] PRN Reason: Protocol Stop: 01/18/18 21:01 Last Admin: 07/20/17 22:08 Dose: 3 units Insulin Human Lispro (Humalog) 0 units SQ TIDAC [facility] PRN Reason: Protocol Stop: 01/18/18 07:31 Last Admin: 07/21/17 13:29 Dose: 8 units Isosorbide Dinitrate (Isordil) 30 mg PO TID [facility] Stop: 01/17/18 21:01 Last Admin: 07/21/17 08:06 Dose: 30 mg Levothyroxine Sodium (Synthroid) 75 mcg PO 0630 [facility] Stop: 01/18/18 06:31 Last Admin: 07/21/17 06:31 Dose: 75 mcg Loratadine (Claritin) 10 mg PO DAILY [facility] Stop: 01/18/18 09:01 Last Admin: 07/21/17 08:06 Dose: 10 mg Naloxone HCl (Narcan) 0.4 mg IVP Q2MIN PRN PRN Reason: SEE COMMENTS Stop: 01/17/18 19:05 Oxycodone HCl (Roxicodone) 10 mg PO Q4HR PRN; Protocol PRN Reason: Pain Stop: 01/19/18 11:07 Last Admin: 07/21/17 08:11 Dose: 10 mg Sertraline HCl (Zoloft) 150 mg PO DAILY BOWEN Stop: 01/21/18 09:01 Laboratory Tests 07/21/17 07/21/17 07:27 09:59 Hgb 8.4 L Creatinine 2.64 H - Imaging and Cardiology Chest Xray: report reviewed Echo: report reviewed - EKG Interpretation EKG results cardiology: other (Telemetry reviewed with average HR previous 12 hours noted to be 70, SR. PVCs and PACs noted.) Consult Discharge Plan - Plan Referrals: Nathaniel Martin MD [Partnered Physician] - 08/25/17 1:00 pm Timo Bravo CNP [Advanced Practice Nurse] - 07/21/17 11:15 am Ramiro Vargas DO [Primary Care Provider] - 08/18/17 3:15 pm
[2017-07-22] MEDS ORDERED: 0.9 % Sodium Chloride 1,000 ML ONE (04:12)
[2017-07-22] MEDS ORDERED: *HR* Heparin 10,000 UNIT/10 ML VIAL IV PRN (06:00)
[2017-07-22 07:19] LABS: Calcium 8.1 mg/dL (8.6-10.3); Potassium 4.2 mEq/L (3.5-5.1)
[2017-07-22 07:31] LABS: Hematocrit 26.4 % (35.3-44.9); Hemoglobin 7.8 g/dL (11.5-15.4); Mean Corpuscular HGB Conc 29.5 g/dL (31.6-35.5); Mean Corpuscular Hemoglobin 28.2 pg (28.0-33.3); Mean Corpuscular Volume 95.3 fL (83.0-100.0); Mean Platelet Volume 12.1 fL (9.4-12.4); Platelet Count 159 K/mcL (140-400); Red Blood Count 2.77 M/mcL (3.82-4.97); Red Cell Distribution Width 14.8 % (11.5-14.5)
--- NOTE | 2017-07-22 07:50 | Nephrology Progress Note ---
Date of Encounter: 07/22/17 Time of Encounter: 07:48 - Assessment and Plan (1) CKD (chronic kidney disease) Current Visit: Yes Status: Chronic UF today. Continue to renal dose and avoid nephrotoxins as possible. Scr 2.70 and GFR 19 today. Qualifiers: Chronic kidney disease stage: unspecified stage Qualified Code(s): N18.9 - Chronic kidney disease, unspecified (2) Anasarca Current Visit: Yes Status: Acute UF today. (3) CHF (congestive heart failure), NYHA class III Current Visit: Yes Status: Acute Per primary team. Qualifiers: Congestive heart failure type: systolic Congestive heart failure chronicity : acute on chronic Qualified Code(s): I50.23 - Acute on chronic systolic ( congestive) heart failure (4) Anemia Current Visit: Yes Status: Acute Goal Hgb 10-11. HGB 7.8, Aranesp added yesterday. Qualifiers: Qualified Code(s): D64.9 - Anemia, unspecified (5) Depressed Current Visit: Yes Status: Acute Was on home dose of 100 mg Zoloft PO Daily at home, spoke with primary team and it was increased to 125/day yesterday. Denies wanting to hurt self/others. Will defer any further titration to primary team. Qualifiers: Qualified Code(s): F32.9 - Major depressive disorder, single episode, unspecified Subjective Principal diagnosis: Biventricular CHF Interval history: Pt seen and examined in HD, was tolerating UF well, No CP/SOB, nausea, vomiting. Objective - Vital Signs Vital signs: Vital Signs Temp Pulse Resp BP Pulse Ox 07/22/17 07:45 125/66 07/22/17 07:30 124/72 07/22/17 07:15 135/67 07/22/17 07:00 126/69 07/22/17 06:45 131/66 07/22/17 06:30 122/71 07/22/17 06:15 132/72 07/22/17 06:00 129/76 07/22/17 05:45 130/71 07/22/17 05:30 151/72 07/22/17 05:15 150/91 07/22/17 05:00 98.0 F 16 139/82 07/22/17 02:44 98 F 71 14 158/84 96 07/21/17 23:18 97.9 F 73 14 128/61 94 07/21/17 19:51 98 F 72 14 135/77 95 07/21/17 15:24 97.8 F 72 15 147/84 97 07/21/17 13:30 177/100 07/21/17 12:55 97.2 F L 18 141/75 07/21/17 12:45 127/64 07/21/17 12:30 121/61 07/21/17 12:15 113/55 07/21/17 12:00 132/62 07/21/17 11:45 111/54 07/21/17 11:30 111/65 07/21/17 11:15 121/68 07/21/17 11:00 133/69 07/21/17 10:45 132/72 07/21/17 10:30 124/62 07/21/17 10:15 117/67 07/21/17 10:00 129/70 07/21/17 09:45 124/75 07/21/17 09:30 141/74 07/21/17 09:15 97.0 F L 18 147/83 07/21/17 08:15 94 Intake and Output 07/21/17 07/21/17 07/22/17 15:59 23:59 07:59 Intake Total 720 / 720 250 / 250 600 / 600 Output Total 4300 / 4300 150 / 150 Balance -3580 / -3580 100 / 100 600 / 600 Intake: Oral 120 / 120 250 / 250 0 / 0 Intake, Rinseback and Flushes 600 / 600 600 / 600 Output: Urine 200 / 200 150 / 150 Total Dialysis (HD) Output 4100 / 4100 Other: Meal Breakfast Dinner Percent of Meal Consumed 100% 50% Stool Size Small Small Stool Consistency formed formed Stool Characteristics Normal for Patient Stool Color Brown Brown Green # Voids 1 # Bowel Movements 1 Weight 146.5 kg Blood Glucose* 181 179 Hemodialysis Net Fluid Removed 3500 3223 (mL) Patient Weight 07/22/17 23:59 Weight 146.5 kg - General Appearance General appearance: Present: obese, chronically ill EENT: Present: ATNC, hearing intact, vision intact Neck: Present: supple Respiratory: Present: clear Cardiology: Present: edema (+2 bilateral lower extremity.), normal S1 Dialysis Vascular Access: Venous Catheter (Right Neck, DRSG C/D/I.) Gastrointestinal: Present: normoactive bowel sounds, no tenderness, no guarding Integumentary: Present: no rash, warm and dry Neurologic: Present: alert and oriented x3 Psychiatric: Present: mood/affect appropriate, cooperative - Lab 07/22/17 06:14 07/22/17 06:14 Most recent lab results Calcium 8.1 mg/dL (8.6-10.3) L 07/22/17 06:14 Phosphorus 4.9 mg/dL (2.7-4.5) H 07/20/17 05:40 Magnesium 1.6 mg/dL (1.6-2.6) 07/20/17 05:40 Consult Discharge Plan - Plan Referrals: Nathaniel Martin MD [Partnered Physician] - 08/25/17 1:00 pm Timo Bravo CNP [Advanced Practice Nurse] - 07/21/17 11:15 am Ramiro Vargas DO [Primary Care Provider] - 08/18/17 3:15 pm
[2017-07-22] MEDS: Insulin LISPRO 300 UNITS/3 ML VIAL SQ SCH ×4 (07:59→21:05)
[2017-07-22] MEDS: Gabapentin 300 MG CAPSULE PO SCH ×2 (10:12→21:04)
[2017-07-22] MEDS: hydrALAZINE 25 MG TABLET PO SCH ×3 (10:13→21:04)
[2017-07-22] MEDS: Loratadine 10 MG TABLET PO SCH (10:13)
[2017-07-22] MEDS: Aspirin Enteric Coated 81 MG Tablet PO SCH (10:13)
[2017-07-22] MEDS: *HR* OxyCODONE Immed Rel 5 MG TABLET PO PRN ×3 (10:19→21:13)
--- NOTE | 2017-07-22 14:01 | Internal Med Progress Note ---
Date of Encounter: 07/22/17 Time of Encounter: 14:00 - Assessment and plan (1) CHF (congestive heart failure), NYHA class III Current Visit: Yes Status: Acute Assessment and plan: Acute exacerbation of biventricular heart failure. Patient in fluid overload with anasarca, +2-3 pitting edema in bilateral lower extremities. Patient reports shortness of breath. BNP elevated at 1104. Chest x-ray showed no evidence of acute cardiopulmonary process, stable exam with stable cardiomegaly. Echocardiogram dated 06/30/17 showed reduced ejection fraction of 30-35%, mildly dilated LV, global LV systolic dysfunction, grossly, mildly dilated and hypokinetic right ventricle, mild TR. Currently undergoing hemodialysis. Cardiology and nephrology following Qualifiers: Congestive heart failure type: systolic Congestive heart failure chronicity : acute on chronic Qualified Code(s): I50.23 - Acute on chronic systolic ( congestive) heart failure (2) Cardiomyopathy Current Visit: Yes Status: Chronic Assessment and plan: Per echocardiogram, LVEF 30-35%, mildly dilated mildly hypokinetic right ventricle. Plan as above. Per cardiology note: Patient refused ICD at [facility]. Patient did not have LHC due to renal function but did have a negative stress at [facility] and cardiomyopathy is thought to be nonischemic. Continue telemetry. Qualifiers: Cardiomyopathy type: unspecified Qualified Code(s): I42.9 - Cardiomyopathy , unspecified (3) KAYA (acute kidney injury) Current Visit: Yes Status: Acute Assessment and plan: Patient has had temporary HD catheter placement Serum creatinine 2.85/GFR 18 improved. Nephrology is on board Ultrafiltration for last 2 days, plan for more UF today Lasix has been held due to UF. Continue to avoid nephrotoxins. (4) CKD (chronic kidney disease) Current Visit: Yes Status: Chronic Assessment and plan: Chronic. Ultrafiltration for last 2 days, plan for UF today. Plan as above. Qualifiers: Chronic kidney disease stage: unspecified stage Qualified Code(s): N18.9 - Chronic kidney disease, unspecified (5) Hypothyroid Current Visit: Yes Status: Acute Assessment and plan: Chronic. Continue home medication. 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 Qualifiers: Hypertension type: essential hypertension Qualified Code(s): I10 - Essential (primary) hypertension (7) DMII (diabetes mellitus, type 2) Current Visit: Yes Status: Acute Assessment and plan: Uncontrolled. Continue sliding scale insulin, Accu-Cheks before meals and at bedtime, diabetic and renal diet. Qualifiers: Diabetes mellitus mcfp insulin use: unspecified mcfp insulin use status Diabetes mellitus complication status: with kidney complications Diabetes mellitus complication detail: with chronic kidney disease Chronic kidney disease stage: stage 5, not on chronic dialysis Qualified Code(s): E11.22 - Type 2 diabetes mellitus with diabetic chronic kidney disease; N18.5 - Chronic kidney disease, stage 5 (8) Anasarca Current Visit: Yes Status: Acute Assessment and plan: UF 07/19, , . (9) Heart failure with reduced ejection fraction Current Visit: No Status: Acute Assessment and plan: Plan as above. Qualifiers: Heart failure chronicity: acute on chronic Qualified Code(s): I50.23 - Acute on chronic systolic (congestive) heart failure (10) Morbid obesity Current Visit: Yes Status: Chronic Assessment and plan: BMI 60.1. Attempt to encourage lifestyle modifications. (11) DVT prophylaxis Current Visit: Yes Status: Acute - Time Spent With Patient Total time spent is greater than 50% in coordination of care (as documented) at patient's floor/unit and/or counseling patient: - Subjective Interval history: No acute events overnight - Constitutional Vitals: Temp Pulse Resp BP Pulse Ox 98.4 F 73 17 145/80 94 07/22/17 11:40 07/22/17 11:40 07/22/17 11:40 07/22/17 11:40 07/22/17 11:40 General appearance: Present: cooperative, A&O X 3, morbidly obese, pleasant, no acute distress, answers questions appropriately - Head Head exam: Present: atraumatic, normocephalic - Eye Eye exam: Present: PERRL, conjuntiva pink, sclera anicteric Pupils: Present: PERRL - Neck Neck exam general surgery: Present: supple, trachea midline. Absent: lymphadenopathy - Respiratory Respiratory exam: Present: CTAB. Absent: accessory muscle use, rales, rhonchi, wheezes - Cardiovascular Cardiovascular exam: Present: RRR, +S1, +S2. Absent: diastolic murmur, gallop, rubs, systolic murmur - GI/Abdominal GI/Abdominal exam: Present: normal bowel sounds, soft, no peritoneal signs. Absent: distended, tenderness - Extremities Exam Extremities exam: Present: warm, radial pulses palpable and symmetrical. Absent : calf tenderness, cyanotic, pedal edema - Neurological Exam Neurological exam: Present: CN II-XII intact, oriented X3, no focal deficits. Absent: pronater drift, facial droop, speech deficit - Skin Skin exam: Present: dry, intact Internal Medicine: Result - Labs CBC & Chem 7: 07/22/17 06:14 07/22/17 06:14 Labs: Short CBC 07/22/17 Range/Units 06:14 WBC 5.5 (4.3-11.1) K/mcL Hgb 7.8 L (11.5-15.4) g/dL Hct 26.4 L (35.3-44.9) % Plt Count 159 (140-400) K/mcL BMP 07/22/17 06:14 Sodium 135 L Potassium 4.2 Chloride 99 Carbon Dioxide 28 BUN 61 H Creatinine 2.70 H Glucose 170 H Calcium 8.1 L - ABG Interpretation ABG results: PT/INR, D-dimer PT 13.6 Seconds (9.4-12.1) H 07/19/17 04:23 Consult Discharge Plan - Plan Referrals: Nathaniel Martin MD [Partnered Physician] - 08/25/17 1:00 pm Timo Bravo CNP [Advanced Practice Nurse] - 07/21/17 11:15 am Ramiro Vargas DO [Primary Care Provider] - 08/18/17 3:15 pm
[2017-07-23] MEDS: *HR* OxyCODONE Immed Rel 5 MG TABLET PO PRN ×3 (04:00→19:55)
[2017-07-23 05:46] LABS: Hematocrit 26.9 % (35.3-44.9); Hemoglobin 8.3 g/dL (11.5-15.4); Mean Corpuscular HGB Conc 30.9 g/dL (31.6-35.5); Mean Corpuscular Hemoglobin 29.4 pg (28.0-33.3); Mean Corpuscular Volume 95.4 fL (83.0-100.0); Mean Platelet Volume 11.8 fL (9.4-12.4); Platelet Count 158 K/mcL (140-400); Red Blood Count 2.82 M/mcL (3.82-4.97); Red Cell Distribution Width 14.7 % (11.5-14.5)
[2017-07-23 06:05] LABS: Calcium 8.3 mg/dL (8.6-10.3); Potassium 4.2 mEq/L (3.5-5.1)
[2017-07-23] MEDS: Gabapentin 300 MG CAPSULE PO SCH ×2 (08:57→19:54)
[2017-07-23] MEDS: Loratadine 10 MG TABLET PO SCH (08:58)
[2017-07-23] MEDS: Aspirin Enteric Coated 81 MG Tablet PO SCH (08:58)
[2017-07-23] MEDS: hydrALAZINE 25 MG TABLET PO SCH ×3 (08:58→19:54)
[2017-07-23] MEDS: Insulin LISPRO 300 UNITS/3 ML VIAL SQ SCH ×4 (08:59→20:00)
[2017-07-23] MEDS ORDERED: 0.9 % Sodium Chloride 1,000 ML ONE (09:20)
[2017-07-23] MEDS ORDERED: 0.9 % Sodium Chloride 250 ML IVC PRN (10:06)
[2017-07-23] MEDS ORDERED: 0.9 % Sodium Chloride 1,000 ML PRIME SCH (10:45)
--- NOTE | 2017-07-23 13:53 | Nephrology Progress Note ---
Date of Encounter: 07/23/17 Time of Encounter: 13:51 - Assessment and Plan (1) KAYA (acute kidney injury) Current Visit: Yes Status: Acute Renal dose medications. Dialysis dependent. Continue daily HD/UF for fluid removal. patient seen on dialysis Subjective Principal diagnosis: Biventricular CHF Interval history: Patient seen on dialysis. She feels better with fluid removal. Objective - Vital Signs Vital signs: Vital Signs Temp Pulse Resp BP Pulse Ox 07/23/17 11:48 97.8 F 68 17 144/79 93 07/23/17 07:24 98.2 F 66 17 131/86 93 07/23/17 03:27 98.7 F 68 16 143/71 94 07/22/17 23:05 98.0 F 76 16 166/83 98 07/22/17 20:19 94 07/22/17 19:22 98.2 F 78 16 136/73 87 07/22/17 15:32 98.1 F 75 16 115/70 91 Intake and Output 07/22/17 07/23/17 07/23/17 23:59 07:59 15:59 Intake Total 400 / 400 240 / 240 Balance 400 / 400 240 / 240 Intake: Oral 400 / 400 240 / 240 Other: Meal Breakfast Percent of Meal Consumed 100% # Voids 1 Weight 144 kg Blood Glucose* 212 150 180 Patient Weight 07/23/17 23:59 Weight 144 kg - General Appearance General appearance: Present: well-developed, well-nourished, obese EENT: Present: ATNC Cardiology: Present: regular rate Neurologic: Present: alert and oriented x3 Psychiatric: Present: mood/affect appropriate - Lab 07/23/17 04:23 07/23/17 04:23 Most recent lab results Calcium 8.3 mg/dL (8.6-10.3) L 07/23/17 04:23 Phosphorus 4.9 mg/dL (2.7-4.5) H 07/20/17 05:40 Magnesium 1.6 mg/dL (1.6-2.6) 07/20/17 05:40 Consult Discharge Plan - Plan Referrals: Nathaniel Martin MD [Partnered Physician] - 08/25/17 1:00 pm Timo Bravo CNP [Advanced Practice Nurse] - 07/21/17 11:15 am Ramiro Vargas DO [Primary Care Provider] - 08/18/17 3:15 pm
--- NOTE | 2017-07-23 14:43 | Internal Med Progress Note ---
Date of Encounter: 07/23/17 Time of Encounter: 14:00 - Assessment and plan (1) CHF (congestive heart failure), NYHA class III Current Visit: Yes Status: Acute Assessment and plan: Acute exacerbation of biventricular heart failure. Patient in fluid overload with anasarca, +2-3 pitting edema in bilateral lower extremities. Patient reports shortness of breath. BNP elevated at 1104. Chest x-ray showed no evidence of acute cardiopulmonary process, stable exam with stable cardiomegaly. Echocardiogram dated 06/30/17 showed reduced ejection fraction of 30-35%, mildly dilated LV, global LV systolic dysfunction, grossly, mildly dilated and hypokinetic right ventricle, mild TR. Currently undergoing daily hemodialysis. Cardiology and nephrology following Qualifiers: Congestive heart failure type: systolic Congestive heart failure chronicity : acute on chronic Qualified Code(s): I50.23 - Acute on chronic systolic ( congestive) heart failure (2) Cardiomyopathy Current Visit: Yes Status: Chronic Assessment and plan: Per echocardiogram, LVEF 30-35%, mildly dilated mildly hypokinetic right ventricle. Per cardiology note: Patient refused ICD at [facility]. Patient did not have LHC due to renal function but did have a negative stress at [facility] and cardiomyopathy is thought to be nonischemic. Continue telemetry. Qualifiers: Cardiomyopathy type: unspecified Qualified Code(s): I42.9 - Cardiomyopathy , unspecified (3) KAYA (acute kidney injury) Current Visit: Yes Status: Acute Assessment and plan: Patient has had temporary HD catheter placement Serum creatinine 2.85/GFR 18 improved. Nephrology is on board Ultrafiltration for last 2 days, plan for more UF today Lasix has been held due to UF. Continue to avoid nephrotoxins. (4) CKD (chronic kidney disease) Current Visit: Yes Status: Chronic Assessment and plan: Chronic. Ultrafiltration for last 2 days, plan for UF today. Plan as above. Qualifiers: Chronic kidney disease stage: unspecified stage Qualified Code(s): N18.9 - Chronic kidney disease, unspecified (5) Hypothyroid Current Visit: Yes Status: Acute Assessment and plan: Chronic. Continue home medication. 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 Qualifiers: Hypertension type: essential hypertension Qualified Code(s): I10 - Essential (primary) hypertension (7) DMII (diabetes mellitus, type 2) Current Visit: Yes Status: Acute Assessment and plan: Uncontrolled. Continue sliding scale insulin, Accu-Cheks before meals and at bedtime, diabetic and renal diet. 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 (9) Heart failure with reduced ejection fraction Current Visit: No Status: Acute Assessment and plan: Plan as above. Qualifiers: Heart failure chronicity: acute on chronic Qualified Code(s): I50.23 - Acute on chronic systolic (congestive) heart failure (10) Morbid obesity Current Visit: Yes Status: Chronic Assessment and plan: BMI 60.1. Attempt to encourage lifestyle modifications. (11) DVT prophylaxis Current Visit: Yes Status: Acute Assessment and plan: Heparin - Time Spent With Patient Total time spent is greater than 50% in coordination of care (as documented) at patient's floor/unit and/or counseling patient: - Subjective Interval history: No acute events overnight - Constitutional Vitals: Temp Pulse Resp BP Pulse Ox 97.8 F 68 17 144/79 93 07/23/17 11:48 07/23/17 11:48 07/23/17 11:48 07/23/17 11:48 07/23/17 11:48 General appearance: Present: cooperative, A&O X 3, morbidly obese, pleasant, no acute distress, answers questions appropriately - Head Head exam: Present: atraumatic, normocephalic - Eye Eye exam: Present: PERRL, conjuntiva pink, sclera anicteric Pupils: Present: PERRL - Neck Neck exam general surgery: Present: supple, trachea midline. Absent: lymphadenopathy - Respiratory Respiratory exam: Present: CTAB. Absent: accessory muscle use, rales, rhonchi, wheezes - Cardiovascular Cardiovascular exam: Present: RRR, +S1, +S2. Absent: diastolic murmur, gallop, rubs, systolic murmur - GI/Abdominal GI/Abdominal exam: Present: normal bowel sounds, soft, no peritoneal signs. Absent: distended, tenderness - Extremities Exam Extremities exam: Present: warm, radial pulses palpable and symmetrical. Absent : calf tenderness, cyanotic, pedal edema - Neurological Exam Neurological exam: Present: CN II-XII intact, oriented X3, no focal deficits. Absent: pronater drift, facial droop, speech deficit - Skin Skin exam: Present: dry, intact Internal Medicine: Result - Labs CBC & Chem 7: 07/23/17 04:23 07/23/17 04:23 Labs: Short CBC 07/23/17 Range/Units 04:23 WBC 4.8 (4.3-11.1) K/mcL Hgb 8.3 L (11.5-15.4) g/dL Hct 26.9 L (35.3-44.9) % Plt Count 158 (140-400) K/mcL BMP 07/23/17 04:23 Sodium 135 L Potassium 4.2 Chloride 99 Carbon Dioxide 27 BUN 62 H Creatinine 2.68 H Glucose 166 H Calcium 8.3 L - ABG Interpretation ABG results: PT/INR, D-dimer PT 13.6 Seconds (9.4-12.1) H 07/19/17 04:23 Consult Discharge Plan - Plan Referrals: Nathaniel Martin MD [Partnered Physician] - 08/25/17 1:00 pm Timo Bravo CNP [Advanced Practice Nurse] - 07/21/17 11:15 am Ramiro Vargas DO [Primary Care Provider] - 08/18/17 3:15 pm
[2017-07-24 04:40] LABS: Hematocrit 26.1 % (35.3-44.9); Hemoglobin 8.1 g/dL (11.5-15.4); Mean Corpuscular Hemoglobin 29.1 pg (28.0-33.3); Mean Corpuscular Volume 93.9 fL (83.0-100.0); Platelet Count 142 K/mcL (140-400); Red Blood Count 2.78 M/mcL (3.82-4.97); Red Cell Distribution Width 14.6 % (11.5-14.5)
[2017-07-24 05:02] LABS: Calcium 8.5 mg/dL (8.6-10.3); Potassium 4.2 mEq/L (3.5-5.1)
[2017-07-24] MEDS: hydrALAZINE 25 MG TABLET PO SCH ×3 (09:07→20:13)
[2017-07-24] MEDS: Loratadine 10 MG TABLET PO SCH (09:08)
[2017-07-24] MEDS: *HR* OxyCODONE Immed Rel 5 MG TABLET PO PRN ×3 (09:08→23:48)
[2017-07-24] MEDS: Aspirin Enteric Coated 81 MG Tablet PO SCH (09:09)
[2017-07-24] MEDS: Gabapentin 300 MG CAPSULE PO SCH ×2 (09:09→20:13)
[2017-07-24] MEDS: Insulin LISPRO 300 UNITS/3 ML VIAL SQ SCH ×4 (09:11→20:32)
--- NOTE | 2017-07-24 10:02 | Nephrology Progress Note ---
Date of Encounter: 07/24/17 Time of Encounter: 09:59 - Assessment and Plan (1) KAYA (acute kidney injury) Current Visit: Yes Status: Acute Renal dose medications. Dialysis dependent KAYA vs ESRD. Continue daily HD/UF for fluid removal. I anticipate that she will be discharged with dialysis. Will need to evaluate for renal recovery as an outpatient. (2) Anemia Current Visit: Yes Status: Acute Patient with iron deficiency anemia associated with chronic kidney disease. We will order iron replacement (venofer x 5 doses). The patient is on Aranesp. Qualifiers: Qualified Code(s): D64.9 - Anemia, unspecified (3) CHF (congestive heart failure), NYHA class III Current Visit: Yes Status: Acute Cardiology evaluated we will initiate angiotensin receptor blockade therapy. Qualifiers: Congestive heart failure type: systolic Congestive heart failure chronicity : acute on chronic Qualified Code(s): I50.23 - Acute on chronic systolic ( congestive) heart failure (4) DMII (diabetes mellitus, type 2) Current Visit: Yes Status: Acute Per the primary team. Qualifiers: Diabetes mellitus residential insulin use: unspecified residential insulin use status Diabetes mellitus complication status: with kidney complications Diabetes mellitus complication detail: with chronic kidney disease Chronic kidney disease stage: stage 5, not on chronic dialysis Qualified Code(s): E11.22 - Type 2 diabetes mellitus with diabetic chronic kidney disease; N18.5 - Chronic kidney disease, stage 5 (5) Morbid obesity Current Visit: Yes Status: Chronic Outpatient management. (6) HTN (hypertension) Current Visit: Yes Status: Chronic Patient blood pressures uncontrolled. We will continue to aggressively remove fluid and will start angiotensin receptor blockade. Qualifiers: Hypertension type: essential hypertension Qualified Code(s): I10 - Essential (primary) hypertension Subjective Principal diagnosis: Biventricular CHF Interval history: Patient seen and evaluated. She states she feels much better with the fluid removal. She denies chest pain. Objective - Vital Signs Vital signs: Vital Signs Temp Pulse Resp BP Pulse Ox 07/24/17 06:59 99.1 F 81 18 158/87 99 07/24/17 02:49 98.4 F 76 16 139/77 91 07/23/17 22:55 97.9 F 71 16 138/62 91 07/23/17 20:01 98.1 F 80 16 167/82 95 07/23/17 16:30 97.5 F L 18 156/76 07/23/17 16:29 98.1 F 80 17 166/50 93 07/23/17 16:00 144/83 07/23/17 15:45 124/68 07/23/17 15:30 122/68 07/23/17 15:15 118/62 07/23/17 15:00 117/63 07/23/17 14:45 129/70 07/23/17 14:30 138/90 07/23/17 14:15 142/59 07/23/17 14:00 171/85 07/23/17 13:45 137/84 07/23/17 13:30 120/67 07/23/17 13:15 129/67 07/23/17 13:00 97.3 F L 20 144/74 07/23/17 11:48 97.8 F 68 17 144/79 93 Intake and Output 07/23/17 07/24/17 07/24/17 23:59 07:59 15:59 Intake Total 240 / 240 0 / 0 Output Total 4100 / 4100 300 / 300 Balance -3860 / -3860 -300 / -300 Intake: Oral 240 / 240 0 / 0 Output: Urine 0 / 0 300 / 300 Total Dialysis (HD) Output 4100 / 4100 Other: Meal Dinner Percent of Meal Consumed 100% Weight 142 kg Blood Glucose* 204 175 Hemodialysis Net Fluid Removed 3500 (mL) Patient Weight 07/24/17 23:59 Weight 142 kg - General Appearance General appearance: Present: well-developed, well-nourished EENT: Present: ATNC Neck: Present: supple Respiratory: Present: course breath sounds Cardiology: Present: edema, regular rate Dialysis Vascular Access: Venous Catheter Gastrointestinal: Present: no tenderness, obese Integumentary: Present: warm and dry Neurologic: Present: alert and oriented x3 Musculoskeletal: Present: no cyanosis Psychiatric: Present: mood/affect appropriate - Lab 07/24/17 03:40 07/24/17 03:40 Most recent lab results Calcium 8.5 mg/dL (8.6-10.3) L 07/24/17 03:40 Phosphorus 4.9 mg/dL (2.7-4.5) H 07/20/17 05:40 Magnesium 1.6 mg/dL (1.6-2.6) 05/23/18 05:40 Consult Discharge Plan - Plan Referrals: Nathaniel Martin MD [Partnered Physician] - 08/25/17 1:00 pm Timo Bravo CNP [Advanced Practice Nurse] - 07/21/17 11:15 am Ramiro Vargas DO [Primary Care Provider] - 08/18/17 3:15 pm
[2017-07-24 10:21] LABS: Myeloperoxidase Ab 0 AU/mL (0-19); Serine Protease-3 Antibody 1 AU/mL (0-19)
[2017-07-24] MEDS: Iron Sucrose Complex 200 MG in 0.9 % Sodium Chloride 100 ML IVPB SCH (12:08)
--- NOTE | 2017-07-24 12:19 | Internal Med Progress Note ---
Date of Encounter: 07/24/17 Time of Encounter: 12:30 - Assessment and plan (1) CHF (congestive heart failure), NYHA class III Current Visit: Yes Status: Acute Assessment and plan: Acute exacerbation of biventricular heart failure. Patient in fluid overload with anasarca, +2-3 pitting edema in bilateral lower extremities. Patient reports shortness of breath. BNP elevated at 1104. Chest x-ray showed no evidence of acute cardiopulmonary process, stable exam with stable cardiomegaly. Echocardiogram dated 06/30/17 showed reduced ejection fraction of 30-35%, mildly dilated LV, global LV systolic dysfunction, grossly, mildly dilated and hypokinetic right ventricle, mild TR. Currently undergoing daily hemodialysis. Cardiology and nephrology following. Anticipate discharge with outpatient dialysis Qualifiers: Congestive heart failure type: systolic Congestive heart failure chronicity : acute on chronic Qualified Code(s): I50.23 - Acute on chronic systolic ( congestive) heart failure (2) Cardiomyopathy Current Visit: Yes Status: Chronic Assessment and plan: Per echocardiogram, LVEF 30-35%, mildly dilated mildly hypokinetic right ventricle. Per cardiology note: Patient refused ICD at [facility]. Patient did not have LHC due to renal function but did have a negative stress at [facility] and cardiomyopathy is thought to be nonischemic. Continue telemetry. Qualifiers: Cardiomyopathy type: unspecified Qualified Code(s): I42.9 - Cardiomyopathy , unspecified (3) KAYA (acute kidney injury) Current Visit: Yes Status: Acute Assessment and plan: Patient has had temporary HD catheter placement Serum creatinine 2.85/GFR 18 improved. Nephrology is on board Ultrafiltration for last 2 days, plan for more UF today Lasix has been held due to UF. Continue to avoid nephrotoxins. (4) CKD (chronic kidney disease) Current Visit: Yes Status: Chronic Assessment and plan: Chronic. Ultrafiltration for last 2 days, plan for UF today. Plan as above. Qualifiers: Chronic kidney disease stage: unspecified stage Qualified Code(s): N18.9 - Chronic kidney disease, unspecified (5) Hypothyroid Current Visit: Yes Status: Acute Assessment and plan: Chronic. Continue home medication. 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 Qualifiers: Hypertension type: essential hypertension Qualified Code(s): I10 - Essential (primary) hypertension (7) DMII (diabetes mellitus, type 2) Current Visit: Yes Status: Acute Assessment and plan: Uncontrolled. Continue sliding scale insulin, Accu-Cheks before meals and at bedtime, diabetic and renal diet. Qualifiers: Diabetes mellitus chcf insulin use: unspecified chcf insulin use status Diabetes mellitus complication status: with kidney complications Diabetes mellitus complication detail: with chronic kidney disease Chronic kidney disease stage: stage 5, not on chronic dialysis Qualified Code(s): E11.22 - Type 2 diabetes mellitus with diabetic chronic kidney disease; N18.5 - Chronic kidney disease, stage 5 (8) Anasarca Current Visit: Yes Status: Acute Assessment and plan: UF 07/19, , . (9) Heart failure with reduced ejection fraction Current Visit: No Status: Acute Assessment and plan: Plan as above. Qualifiers: Heart failure chronicity: acute on chronic Qualified Code(s): I50.23 - Acute on chronic systolic (congestive) heart failure (10) Morbid obesity Current Visit: Yes Status: Chronic Assessment and plan: BMI 60.1. Attempt to encourage lifestyle modifications. (11) DVT prophylaxis Current Visit: Yes Status: Acute Assessment and plan: Heparin - Time Spent With Patient Total time spent is greater than 50% in coordination of care (as documented) at patient's floor/unit and/or counseling patient: - Subjective Interval history: No acute events overnight - Constitutional Vitals: Temp Pulse Resp BP Pulse Ox 99.1 F 81 18 158/87 99 07/24/17 06:59 07/24/17 06:59 07/24/17 06:59 07/24/17 06:59 07/24/17 06:59 General appearance: Present: cooperative, A&O X 3, morbidly obese, pleasant, no acute distress, answers questions appropriately - Head Head exam: Present: atraumatic, normocephalic - Eye Eye exam: Present: PERRL, conjuntiva pink, sclera anicteric Pupils: Present: PERRL - Neck Neck exam general surgery: Present: supple, trachea midline. Absent: lymphadenopathy - Respiratory Respiratory exam: Present: CTAB. Absent: accessory muscle use, rales, rhonchi, wheezes - Cardiovascular Cardiovascular exam: Present: RRR, +S1, +S2. Absent: diastolic murmur, gallop, rubs, systolic murmur - GI/Abdominal GI/Abdominal exam: Present: normal bowel sounds, soft, no peritoneal signs. Absent: distended, tenderness - Extremities Exam Extremities exam: Present: warm, radial pulses palpable and symmetrical. Absent : calf tenderness, cyanotic, pedal edema - Neurological Exam Neurological exam: Present: CN II-XII intact, oriented X3, no focal deficits. Absent: pronater drift, facial droop, speech deficit - Skin Skin exam: Present: dry, intact Internal Medicine: Result - Labs CBC & Chem 7: 07/24/17 03:40 07/24/17 03:40 Labs: Short CBC 07/24/17 Range/Units 03:40 WBC 4.9 (4.3-11.1) K/mcL Hgb 8.1 L (11.5-15.4) g/dL Hct 26.1 L (35.3-44.9) % Plt Count 142 (140-400) K/mcL BMP 07/24/17 03:40 Sodium 133 L Potassium 4.2 Chloride 98 Carbon Dioxide 28 BUN 46 H Creatinine 2.53 H Glucose 182 H Calcium 8.5 L - ABG Interpretation ABG results: PT/INR, D-dimer PT 13.6 Seconds (9.4-12.1) H 07/19/17 04:23 Consult Discharge Plan - Plan Referrals: Nathaniel Martin MD [Partnered Physician] - 08/25/17 1:00 pm Timo Bravo CNP [Advanced Practice Nurse] - 07/21/17 11:15 am Ramiro Vargas DO [Primary Care Provider] - 08/18/17 3:15 pm
[2017-07-24] MEDS: Valsartan 80 MG TABLET PO SCH ×2 (12:35→20:13)
[2017-07-24] MEDS ORDERED: Ondansetron 4 MG/2 ML VIAL IVP PRN (23:15)
[2017-07-25] MEDS ORDERED: 0.9 % Sodium Chloride 2,000 ML ONE (04:18)
[2017-07-25] MEDS ORDERED: *HR* Heparin 10,000 UNIT/10 ML VIAL IV PRN (04:53)
[2017-07-25] MEDS ORDERED: 0.9 % Sodium Chloride 250 ML IVC PRN (04:53)
[2017-07-25] MEDS ORDERED: 0.9 % Sodium Chloride 1,000 ML PRIME SCH (05:00)
--- NOTE | 2017-07-25 08:50 | Nephrology Progress Note ---
Date of Encounter: 07/25/17 Time of Encounter: 08:50 - Assessment and Plan (1) KAYA (acute kidney injury) Current Visit: Yes Status: Acute Renal dose medications. Dialysis dependent KAYA vs ESRD. Continue daily HD/UF for fluid removal. Tunneled catheter has been ordered. Social work has been consult for outpatient dialysis unit. (2) Anemia Current Visit: Yes Status: Acute Patient with iron deficiency anemia associated with chronic kidney disease. Patient thinks she got an upset stomach from IV Venofer. I informed her that this is highly unlikely, but we will hold IV Venofer for now. The patient is on Aranesp. Qualifiers: Qualified Code(s): D64.9 - Anemia, unspecified (3) CHF (congestive heart failure), NYHA class III Current Visit: Yes Status: Acute Cardiology evaluated we will initiate angiotensin receptor blockade therapy. Qualifiers: Congestive heart failure type: systolic Congestive heart failure chronicity : acute on chronic Qualified Code(s): I50.23 - Acute on chronic systolic ( congestive) heart failure (4) DMII (diabetes mellitus, type 2) Current Visit: Yes Status: Acute Per the primary team. 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 (6) HTN (hypertension) Current Visit: Yes Status: Chronic Patient blood pressures uncontrolled. We will continue to aggressively remove fluid and will started angiotensin receptor blockade. Qualifiers: Hypertension type: essential hypertension Qualified Code(s): I10 - Essential (primary) hypertension Subjective Principal diagnosis: Biventricular CHF Interval history: Patient seen and evaluated. She states she feels much better with the fluid removal. She denies chest pain. Objective - Vital Signs Vital signs: Vital Signs Temp Pulse Resp BP Pulse Ox 07/25/17 03:10 98.4 F 69 16 119/68 91 07/24/17 22:51 98.0 F 69 16 126/73 91 07/24/17 19:09 98.1 F 80 16 160/76 95 07/24/17 16:14 98.8 F 79 18 187/100 92 07/24/17 12:26 98.5 F 79 16 139/81 93 Intake and Output 07/24/17 07/25/17 07/25/17 23:59 07:59 15:59 Intake Total 500 / 500 Output Total 300 / 300 Balance 200 / 200 Intake: Oral 500 / 500 Output: Urine 300 / 300 Other: Weight 141.8 kg Blood Glucose* 200 Patient Weight 07/25/17 23:59 Weight 141.8 kg - General Appearance General appearance: Present: well-developed, well-nourished, obese EENT: Present: ATNC Cardiology: Present: regular rate Integumentary: Present: warm and dry Neurologic: Present: alert and oriented x3 Psychiatric: Present: mood/affect appropriate - Lab 07/25/17 04:00 07/25/17 04:00 Most recent lab results Calcium 8.5 mg/dL (8.6-10.3) L 07/24/17 03:40 Phosphorus 4.9 mg/dL (2.7-4.5) H 07/20/17 05:40 Magnesium 1.6 mg/dL (1.6-2.6) 07/20/17 05:40 Consult Discharge Plan - Plan Referrals: Nathaniel Martin MD [Partnered Physician] - 08/25/17 1:00 pm Timo Bravo CNP [Advanced Practice Nurse] - 07/21/17 11:15 am Ramiro Vargas DO [Primary Care Provider] - 08/18/17 3:15 pm
[2017-07-25 09:40] LABS: Hematocrit 28.9 % (35.3-44.9); Hemoglobin 8.8 g/dL (11.5-15.4); Mean Corpuscular HGB Conc 30.4 g/dL (31.6-35.5); Mean Corpuscular Hemoglobin 28.6 pg (28.0-33.3); Mean Corpuscular Volume 93.8 fL (83.0-100.0); Mean Platelet Volume 11.3 fL (9.4-12.4); Platelet Count 147 K/mcL (140-400); Red Blood Count 3.08 M/mcL (3.82-4.97); Red Cell Distribution Width 14.7 % (11.5-14.5)
[2017-07-25 10:11] LABS: Calcium 8.7 mg/dL (8.6-10.3)
[2017-07-25 10:24] LABS: Potassium 3.6 mEq/L (3.5-5.1)
[2017-07-25] MEDS: Gabapentin 300 MG CAPSULE PO SCH ×2 (10:45→20:59)
[2017-07-25] MEDS: hydrALAZINE 25 MG TABLET PO SCH ×3 (10:46→20:59)
[2017-07-25] MEDS: Loratadine 10 MG TABLET PO SCH (10:46)
[2017-07-25] MEDS: Insulin LISPRO 300 UNITS/3 ML VIAL SQ SCH ×4 (10:47→21:00)
[2017-07-25] MEDS: Aspirin Enteric Coated 81 MG Tablet PO SCH (10:47)
[2017-07-25] MEDS: Valsartan 80 MG TABLET PO SCH ×2 (10:47→21:00)
[2017-07-25] MEDS: *HR* OxyCODONE Immed Rel 5 MG TABLET PO PRN ×2 (10:55→20:59)
--- NOTE | 2017-07-25 11:25 | Internal Med Progress Note ---
Date of Encounter: 07/25/17 Time of Encounter: 11:20 - Assessment and plan (1) CHF (congestive heart failure), NYHA class III Current Visit: Yes Status: Acute Assessment and plan: Acute exacerbation of biventricular heart failure. Patient in fluid overload with anasarca, +2-3 pitting edema in bilateral lower extremities. Patient reports shortness of breath. BNP elevated at 1104. Echocardiogram dated 06/30/17 showed reduced ejection fraction of 30-35%, mildly dilated LV, global LV systolic dysfunction, grossly, mildly dilated and hypokinetic right ventricle, mild TR. Currently undergoing daily hemodialysis per nephrology recs. Cardiology and nephrology following. Anticipate discharge with outpatient dialysis. Qualifiers: Congestive heart failure type: systolic Congestive heart failure chronicity : acute on chronic Qualified Code(s): I50.23 - Acute on chronic systolic ( congestive) heart failure (2) Cardiomyopathy Current Visit: Yes Status: Chronic Assessment and plan: Per echocardiogram, LVEF 30-35%, mildly dilated mildly hypokinetic right ventricle. Per cardiology note: Patient refused ICD at [facility]. Patient did not have LHC due to renal function but did have a negative stress at [facility] and cardiomyopathy is thought to be nonischemic. Continue telemetry. Qualifiers: Cardiomyopathy type: unspecified Qualified Code(s): I42.9 - Cardiomyopathy , unspecified (3) KAYA (acute kidney injury) Current Visit: Yes Status: Acute Assessment and plan: Patient has had temporary HD catheter placement and is on daily dialysis. (4) CKD (chronic kidney disease) Current Visit: Yes Status: Chronic Assessment and plan: Chronic. On daily dialysis Qualifiers: Chronic kidney disease stage: unspecified stage Qualified Code(s): N18.9 - Chronic kidney disease, unspecified (5) Hypothyroid Current Visit: Yes Status: Acute Assessment and plan: Chronic. Continue home medication. 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 Qualifiers: Hypertension type: essential hypertension Qualified Code(s): I10 - Essential (primary) hypertension (7) DMII (diabetes mellitus, type 2) Current Visit: Yes Status: Acute Assessment and plan: Uncontrolled. Continue sliding scale insulin, Accu-Cheks before meals and at bedtime, diabetic and renal diet. 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 Qualifiers: Heart failure chronicity: acute on chronic Qualified Code(s): I50.23 - Acute on chronic systolic (congestive) heart failure (10) Morbid obesity Current Visit: Yes Status: Chronic Assessment and plan: BMI 60.1. Attempt to encourage lifestyle modifications. (11) DVT prophylaxis Current Visit: Yes Status: Acute Assessment and plan: Heparin - Time Spent With Patient Total time spent is greater than 50% in coordination of care (as documented) at patient's floor/unit and/or counseling patient: - Subjective Interval history: No acute events overnight - Constitutional Vitals: Temp Pulse Resp BP Pulse Ox 98.3 F 74 16 148/73 94 07/25/17 10:58 07/25/17 10:58 07/25/17 10:58 07/25/17 10:58 07/25/17 10:58 General appearance: Present: cooperative, A&O X 3, morbidly obese, pleasant, no acute distress, answers questions appropriately - Head Head exam: Present: atraumatic, normocephalic - Eye Eye exam: Present: PERRL, conjuntiva pink, sclera anicteric Pupils: Present: PERRL - Neck Neck exam general surgery: Present: supple, trachea midline. Absent: lymphadenopathy - Respiratory Respiratory exam: Present: CTAB. Absent: accessory muscle use, rales, rhonchi, wheezes - Cardiovascular Cardiovascular exam: Present: RRR, +S1, +S2. Absent: diastolic murmur, gallop, rubs, systolic murmur - GI/Abdominal GI/Abdominal exam: Present: normal bowel sounds, soft, no peritoneal signs. Absent: distended, tenderness - Extremities Exam Extremities exam: Present: warm, radial pulses palpable and symmetrical. Absent : calf tenderness, cyanotic, pedal edema Additional comments: 2+ pitting edema bilaterally - Neurological Exam Neurological exam: Present: CN II-XII intact, oriented X3, no focal deficits. Absent: pronater drift, facial droop, speech deficit - Skin Skin exam: Present: dry, intact Internal Medicine: Result - Labs CBC & Chem 7: 07/25/17 04:00 07/25/17 04:00 Labs: Short CBC 07/25/17 Range/Units 04:00 WBC 5.0 (4.3-11.1) K/mcL Hgb 8.8 L (11.5-15.4) g/dL Hct 28.9 L (35.3-44.9) % Plt Count 147 (140-400) K/mcL BMP 07/25/17 04:00 Sodium 134 L Potassium 3.6 Chloride 97 L Carbon Dioxide 29 BUN 29 H Creatinine 1.89 H Glucose 125 H Calcium 8.7 - ABG Interpretation ABG results: PT/INR, D-dimer PT 13.6 Seconds (9.4-12.1) H 07/19/17 04:23 Consult Discharge Plan - Plan Referrals: Nathaniel Martin MD [Partnered Physician] - 08/25/17 1:00 pm Timo Bravo CNP [Advanced Practice Nurse] - 07/21/17 11:15 am Ramiro Vargas DO [Primary Care Provider] - 08/18/17 3:15 pm
[2017-07-25] MEDS: Iron Sucrose Complex 200 MG in 0.9 % Sodium Chloride 100 ML IVPB SCH (12:43)
[2017-07-26 06:47] LABS: Hematocrit 26.3 % (35.3-44.9); Hemoglobin 7.9 g/dL (11.5-15.4); Mean Corpuscular Hemoglobin 28.5 pg (28.0-33.3); Mean Corpuscular Volume 94.9 fL (83.0-100.0); Mean Platelet Volume 12.1 fL (9.4-12.4); Platelet Count 138 K/mcL (140-400); Red Blood Count 2.77 M/mcL (3.82-4.97); Red Cell Distribution Width 14.6 % (11.5-14.5)
[2017-07-26 07:41] LABS: Calcium 8.3 mg/dL (8.6-10.3)
[2017-07-26] MEDS ORDERED: 0.9 % Sodium Chloride 1,000 ML ONE (08:04)
[2017-07-26] MEDS ORDERED: 0.9 % Sodium Chloride 250 ML IVC PRN (08:09)
[2017-07-26] MEDS: Valsartan 80 MG TABLET PO SCH ×2 (08:11→20:00)
[2017-07-26] MEDS: Aspirin Enteric Coated 81 MG Tablet PO SCH (08:12)
[2017-07-26] MEDS: Gabapentin 300 MG CAPSULE PO SCH ×2 (08:12→20:00)
[2017-07-26] MEDS: hydrALAZINE 25 MG TABLET PO SCH ×3 (08:12→20:00)
[2017-07-26] MEDS: Loratadine 10 MG TABLET PO SCH (08:13)
[2017-07-26] MEDS ORDERED: 0.9 % Sodium Chloride 1,000 ML PRIME SCH (08:15)
[2017-07-26] MEDS: *HR* OxyCODONE Immed Rel 5 MG TABLET PO PRN ×3 (08:20→20:00)
[2017-07-26] MEDS: Insulin LISPRO 300 UNITS/3 ML VIAL SQ SCH ×4 (08:21→21:14)
--- NOTE | 2017-07-26 11:28 | Nephrology Progress Note ---
Date of Encounter: 07/26/17 Time of Encounter: 11:27 - Assessment and Plan (1) CKD (chronic kidney disease) Current Visit: Yes Status: Chronic HD in progress. Continue to renal dose and avoid nephrotoxins if possible. Scr 2.59 and GFR 20. Qualifiers: Chronic kidney disease stage: unspecified stage Qualified Code(s): N18.9 - Chronic kidney disease, unspecified (2) Anasarca Current Visit: Yes Status: Acute Per primary team. (3) CHF (congestive heart failure), NYHA class III Current Visit: Yes Status: Acute Per primary team. Qualifiers: Congestive heart failure type: systolic Congestive heart failure chronicity : acute on chronic Qualified Code(s): I50.23 - Acute on chronic systolic ( congestive) heart failure (4) Anemia Current Visit: Yes Status: Acute Goal Hgb 10-11. HGB 7., already on Aranesp. Qualifiers: Qualified Code(s): D64.9 - Anemia, unspecified (5) Depressed Current Visit: Yes Status: Acute Improving. Qualifiers: Qualified Code(s): F32.9 - Major depressive disorder, single episode, unspecified Subjective Principal diagnosis: Biventricular CHF Interval history: Pt seen and examined in HD, tolerating well. No CP/SOB, nausea, vomiting. Objective - Vital Signs Vital signs: Vital Signs Temp Pulse Resp BP Pulse Ox 07/26/17 11:15 101/57 07/26/17 11:00 103/55 07/26/17 10:45 107/55 07/26/17 10:30 121/67 07/26/17 10:15 120/66 07/26/17 10:00 122/67 07/26/17 09:45 135/69 07/26/17 09:30 97.4 F L 18 130/73 07/26/17 06:36 98.3 F 67 15 127/78 92 07/26/17 03:34 98.4 F 69 16 100/63 90 07/25/17 23:54 98.2 F 78 16 137/71 94 07/25/17 20:15 98.4 F 75 16 147/79 90 07/25/17 15:28 98.5 F 81 16 159/76 94 Intake and Output 07/25/17 07/26/17 07/26/17 23:59 07:59 15:59 Intake Total 840 / 840 Output Total 200 / 200 Balance -200 / -200 840 / 840 Intake: Oral 240 / 240 Intake, Rinseback and Flushes 600 / 600 Output: Urine 200 / 200 Other: Meal Breakfast Percent of Meal Consumed 75% Weight 137.7 kg 137.7 kg Blood Glucose* 242 166 Hemodialysis Net Fluid Removed 4047 (mL) Patient Weight 07/26/17 23:59 Weight 137.7 kg - General Appearance General appearance: Present: obese, chronically ill EENT: Present: ATNC, hearing intact, vision intact Neck: Present: supple Respiratory: Present: clear Cardiology: Present: edema (+2 BLE noted.) Dialysis Vascular Access: Venous Catheter (Right neck. DRSG C/D/I.) Gastrointestinal: Present: normoactive bowel sounds, no tenderness, no guarding Integumentary: Present: no rash, warm and dry Neurologic: Present: alert and oriented x3 Psychiatric: Present: mood/affect appropriate, cooperative - Lab 07/26/17 05:33 07/26/17 05:33 Most recent lab results Calcium 8.3 mg/dL (8.6-10.3) L 07/26/17 05:33 Phosphorus 4.9 mg/dL (2.7-4.5) H 07/20/17 05:40 Magnesium 1.6 mg/dL (1.6-2.6) 07/20/17 05:40 - VTE Documentation of Mechanical Device: Intermittent pneumatic compression device Consult Discharge Plan - Plan Referrals: Nathaniel Martin MD [Partnered Physician] - 08/25/17 1:00 pm Timo Bravo CNP [Advanced Practice Nurse] - 07/21/17 11:15 am Ramiro Vargas DO [Primary Care Provider] - 08/18/17 3:15 pm
--- NOTE | 2017-07-26 14:47 | Internal Med Progress Note ---
Date of Encounter: 07/26/17 Time of Encounter: 15:00 - Assessment and plan (1) CKD (chronic kidney disease) Current Visit: Yes Status: Chronic Assessment and plan: Has known acute diastolic heart failure with advanced chronic heart failure and progressive renal decline. Has not consistently followed up with nephrology. Now with worsening renal function/decline with cycles of worsening edema requiring more diuretics and worsening creatinine. 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 Nephrology following Qualifiers: Chronic kidney disease stage: unspecified stage Qualified Code(s): N18.9 - Chronic kidney disease, unspecified (2) CHF (congestive heart failure), NYHA class III Current Visit: Yes Status: Acute Assessment and plan: Acute exacerbation of biventricular heart failure. Clinically fluid overloaded with anasarca, +2-3 pitting edema in bilateral lower extremities and shortness of breath. BNP elevated at 1104. 06/30/17 TTE with EF 30-35%, mildly dilated LV, global LV systolic dysfunction, grossly, mildly dilated and hypokinetic right ventricle, mild TR (EF previously 18% at [facility] 12/2016). Lasix on hold with worsening renal function. Fluid removal via ultrafiltration/HD per nephrology. Evaluated by cardiology who noted K consider adding an CAROLANN/ARB or entresto if dialysis becomes permanent. Monitor fluid status. Qualifiers: Congestive heart failure type: systolic Congestive heart failure chronicity : acute on chronic Qualified Code(s): I50.23 - Acute on chronic systolic ( congestive) heart failure (3) Anasarca Current Visit: Yes Status: Acute Assessment and plan: Multifactorial with worsening renal function and acute diastolic heart failure. Continue ultrafiltration/HD. (4) Cardiomyopathy Current Visit: Yes Status: Chronic Assessment and plan: suspected. Patient did not have LHC due to renal function but did have a negative stress at [facility] and cardiomyopathy is thought to be nonischemic. Continue telemetry. Qualifiers: Cardiomyopathy type: unspecified Qualified Code(s): I42.9 - Cardiomyopathy , unspecified (5) Hypothyroid Current Visit: Yes Status: Acute Assessment and plan: Chronic. Continue home medication. 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 Cont home BP medications Qualifiers: Hypertension type: essential hypertension Qualified Code(s): I10 - Essential (primary) hypertension (7) DMII (diabetes mellitus, type 2) Current Visit: Yes Status: Acute Assessment and plan: per hx. Hgb A1c 7.3%. Continue SSI. 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 Attempt to encourage lifestyle modifications. (9) Anemia Current Visit: Yes Status: Acute Assessment and plan: anemia of chronic disease secondary to CKD. Hgb progressively declining since . No active bleeding. Hemodynamically stable. Received IV iron this hospitalization. Goal Hgb 10-11 per nephrology recommendation. Continue on Aranesp. Transfuse 1 unit PRBC on 12/27/17 for Hgb of 7.9. Qualifiers: Anemia type: other cause Other causes of anemia: chronic disease, other Qualified Code(s): D63.8 - Anemia in other chronic diseases classified elsewhere (10) DVT prophylaxis Current Visit: Yes Status: Acute Assessment and plan: Heparin - Time Spent With Patient Total time spent is greater than 50% in coordination of care (as documented) at patient's floor/unit and/or counseling patient: - Subjective Interval history: Seen and examined at bedside. Patient is new to me, information obtained from chart review and patient report. She just returned from dialysis, says she is tired. She is complain of pain at temporary dialysis line site. Says she is anxious for tunneled catheter. Has some shortness of breath but overall improved. No chest pain. She feels breathing is significantly better. Legs are still swollen only minimally improved per patient. - Constitutional Vitals: Temp Pulse Resp BP Pulse Ox 98.0 F 75 16 139/72 94 07/26/17 13:12 07/26/17 13:12 07/26/17 13:12 07/26/17 13:12 07/26/17 13:12 General appearance: Present: cooperative, A&O X 3, morbidly obese, pleasant, no acute distress, answers questions appropriately - Head Head exam: Present: atraumatic, normocephalic - Eye Eye exam: Present: PERRL, conjuntiva pink, sclera anicteric Pupils: Present: PERRL - Neck Neck exam general surgery: Present: supple, trachea midline. Absent: lymphadenopathy - Respiratory Respiratory exam: Present: CTAB. Absent: accessory muscle use, rales, rhonchi, wheezes - Cardiovascular Cardiovascular exam: Present: RRR, +S1, +S2. Absent: diastolic murmur, gallop, rubs, systolic murmur - GI/Abdominal GI/Abdominal exam: Present: normal bowel sounds, soft, no peritoneal signs. Absent: distended, tenderness Additional comments: significant abdominal edema - Extremities Exam Extremities exam: Present: pedal edema, warm, radial pulses palpable and symmetrical. Absent: calf tenderness, cyanotic - Neurological Exam Neurological exam: Present: CN II-XII intact, oriented X3, no focal deficits. Absent: pronater drift, facial droop, speech deficit - Skin Skin exam: Present: dry, intact Internal Medicine: Result - Labs CBC & Chem 7: 07/26/17 05:33 07/26/17 05:33 Labs: Short CBC 07/26/17 Range/Units 05:33 WBC 5.3 (4.3-11.1) K/mcL Hgb 7.9 L (11.5-15.4) g/dL Hct 26.3 L (35.3-44.9) % Plt Count 138 L (140-400) K/mcL BMP 07/26/17 05:33 Sodium 132 L Potassium 4.0 Chloride 98 Carbon Dioxide 27 BUN 41 H Creatinine 2.59 H Glucose 189 H Calcium 8.3 L - ABG Interpretation ABG results: PT/INR, D-dimer PT 13.6 Seconds (9.4-12.1) H 07/19/17 04:23 - VTE Documentation of Mechanical Device: Intermittent pneumatic compression device Consult Discharge Plan - Plan Referrals: Nathaniel Martin MD [Partnered Physician] - 08/25/17 1:00 pm Timo Bravo CNP [Advanced Practice Nurse] - 07/21/17 11:15 am Ramiro Vargas DO [Primary Care Provider] - 08/18/17 3:15 pm
[2017-07-26] MEDS ORDERED: *HR* Midazolam HCl 2 MG/2 ML VIAL IVP ONE (15:09)
[2017-07-26] MEDS ORDERED: *HR* FentaNYL (PF) 100 MCG/2 ML VIAL IVP ONE ×2 (15:09→21:44)
[2017-07-26] MEDS ORDERED: CeFAZolin Premix DUPLEX 2,000 MG/50 ML BAG IVPB ONE ×2 (15:09→16:00)
[2017-07-26] MEDS ORDERED: 0.9 % Sodium Chloride 500 ML ONE (15:36)
[2017-07-26] MEDS ORDERED: *HR* Heparin 5,000 UNIT/ML VIAL ONE (15:47)
--- NOTE | 2017-07-26 15:53 | IR Procedure Note ---
Date of procedure: 07/26/17 Consent Obtained: Verbal consent, Written consent Timeout: Correct patient and procedure verified, Correct site verified, Time out performed, Skin prep completed Local anesthetic: Lidocaine 1% Indications: Renal failure Procedure Performed: Tunneled HD catheter placement Was there an library serials assistant present: No Site/Technique: Tunneled HD catheter placed in VIR Results/Findings: Tunneled HD catheter placed in VIR Estimated blood loss (cc): 2 Complications: None; Tolerated procedure well Post Procedure Treatment Plan: OK to use HD catheter Specimen: None
[2017-07-27] MEDS: *HR* OxyCODONE Immed Rel 5 MG TABLET PO PRN ×5 (01:11→22:29)
[2017-07-27] MEDS ORDERED: OXYCODONE Oral CONC 10 MG/0.5 ML ORAL.SYG SL ONE (02:43)
[2017-07-27] MEDS ORDERED: 0.9 % Sodium Chloride 250 ML IVC PRN (05:16)
[2017-07-27] MEDS ORDERED: *HR* Heparin 10,000 UNIT/10 ML VIAL IV PRN (05:16)
[2017-07-27] MEDS ORDERED: 0.9 % Sodium Chloride 1,000 ML PRIME SCH (05:30)
[2017-07-27 06:53] LABS: Hematocrit 26.1 % (35.3-44.9); Hemoglobin 8.1 g/dL (11.5-15.4); Mean Corpuscular Hemoglobin 29.7 pg (28.0-33.3); Mean Corpuscular Volume 95.6 fL (83.0-100.0); Platelet Count 133 K/mcL (140-400); Red Blood Count 2.73 M/mcL (3.82-4.97); Red Cell Distribution Width 14.6 % (11.5-14.5)
[2017-07-27] MEDS ORDERED: 0.9 % Sodium Chloride 2,000 ML ONE (07:08)
[2017-07-27 07:09] LABS: Calcium 8.5 mg/dL (8.6-10.3)
[2017-07-27] MEDS: Insulin LISPRO 300 UNITS/3 ML VIAL SQ SCH ×4 (09:21→21:51)
--- NOTE | 2017-07-27 09:21 | Nephrology Progress Note ---
Date of Encounter: 07/27/17 Time of Encounter: 09:19 - Assessment and Plan (1) CKD (chronic kidney disease) Current Visit: Yes Status: Chronic HD in progress. Continue to renal dose and avoid nephrotoxins if possible. Scr 2.85 GFR 18. Qualifiers: Chronic kidney disease stage: unspecified stage Qualified Code(s): N18.9 - Chronic kidney disease, unspecified (2) Anasarca Current Visit: Yes Status: Acute Per primary team. (3) CHF (congestive heart failure), NYHA class III Current Visit: Yes Status: Acute Per primary team. Qualifiers: Congestive heart failure type: systolic Congestive heart failure chronicity : acute on chronic Qualified Code(s): I50.23 - Acute on chronic systolic ( congestive) heart failure (4) Anemia Current Visit: Yes Status: Acute Goal Hgb 10-11. HGB 7., already on Aranesp. 1 Unit Packed Red Cells infusing with HD. Qualifiers: Anemia type: other cause Other causes of anemia: chronic disease, other Qualified Code(s): D63.8 - Anemia in other chronic diseases classified elsewhere (5) Depressed Current Visit: Yes Status: Acute Improving. Qualifiers: Qualified Code(s): F32.9 - Major depressive disorder, single episode, unspecified Subjective Principal diagnosis: Biventricular CHF Interval history: Pt seen and examined in HD, tolerating well. No CP/SOB, nausea, vomiting. Right Tunneled Cath placed yesterday. Objective - Vital Signs Vital signs: Vital Signs Temp Pulse Resp BP Pulse Ox 07/27/17 08:40 97.2 F L 76 18 143/82 07/27/17 02:33 98.7 F 79 16 169/79 93 07/26/17 22:45 98.2 F 75 14 129/77 92 07/26/17 19:37 97.6 F 71 12 135/80 92 07/26/17 18:00 71 144/72 07/26/17 17:00 71 144/82 07/26/17 16:45 69 115/71 07/26/17 16:30 69 120/73 07/26/17 16:15 98.1 F 71 16 134/74 94 07/26/17 15:47 71 18 156/87 95 07/26/17 15:43 72 13 158/85 94 07/26/17 13:12 98.0 F 75 16 139/72 94 07/26/17 11:41 97.8 F 18 112/61 07/26/17 11:30 107/55 07/26/17 11:15 101/57 07/26/17 11:00 103/55 07/26/17 10:45 107/55 07/26/17 10:30 121/67 07/26/17 10:15 120/66 07/26/17 10:00 122/67 07/26/17 09:45 135/69 07/26/17 09:30 97.4 F L 18 130/73 Intake and Output 07/26/17 07/27/17 07/27/17 23:59 07:59 15:59 Intake Total 0 / 0 Balance 0 / 0 Intake: Blood Product 0 / 0 Rbcs Leuko Poor As-1 Unit 0 / 0 [id number] Other: Blood Glucose* 171 - General Appearance General appearance: Present: obese, chronically ill EENT: Present: ATNC, hearing intact, vision intact Neck: Present: supple Respiratory: Present: clear Cardiology: Present: edema (+2 BLE edema noted.), normal S1, normal S2 Dialysis Vascular Access: Venous Catheter (Right Tunneled Cath.) Gastrointestinal: Present: no tenderness, no guarding Integumentary: Present: no rash, warm and dry Neurologic: Present: alert and oriented x3 Psychiatric: Present: mood/affect appropriate, cooperative - Lab 07/27/17 04:00 07/27/17 04:00 Most recent lab results Calcium 8.5 mg/dL (8.6-10.3) L 07/27/17 04:00 Phosphorus 4.9 mg/dL (2.7-4.5) H 07/20/17 05:40 Magnesium 1.6 mg/dL (1.6-2.6) 07/20/17 05:40 - VTE Documentation of Mechanical Device: Intermittent pneumatic compression device Consult Discharge Plan - Plan Referrals: Nathaniel Martin MD [Partnered Physician] - 08/25/17 1:00 pm Ramiro Vargas DO [Primary Care Provider] - 08/18/17 3:15 pm
[2017-07-27] MEDS: hydrALAZINE 25 MG TABLET PO SCH ×3 (11:08→21:48)
[2017-07-27] MEDS: Aspirin Enteric Coated 81 MG Tablet PO SCH (11:08)
[2017-07-27] MEDS: Gabapentin 300 MG CAPSULE PO SCH ×2 (11:09→21:50)
[2017-07-27] MEDS: Loratadine 10 MG TABLET PO SCH (11:09)
[2017-07-27] MEDS: Valsartan 80 MG TABLET PO SCH ×2 (11:09→21:50)
--- NOTE | 2017-07-27 15:36 | Internal Med Progress Note ---
Date of Encounter: 07/27/17 Time of Encounter: 15:34 - Assessment and plan (1) CKD (chronic kidney disease) Current Visit: Yes Status: Chronic Assessment and plan: Has known acute diastolic heart failure with advanced chronic heart failure and progressive renal decline. Has not consistently followed up with nephrology. Now with worsening renal function/decline with cycles of worsening edema requiring more diuretics and worsening creatinine. HD/ultrafiltration initiated this admission. Tunneled HD catheter placed 07/26/17. She will require outpatient dialysis. Nephrology following Qualifiers: Chronic kidney disease stage: unspecified stage Qualified Code(s): N18.9 - Chronic kidney disease, unspecified (2) CHF (congestive heart failure), NYHA class III Current Visit: Yes Status: Acute Assessment and plan: Acute exacerbation of biventricular heart failure. Clinically fluid overloaded with anasarca, +2-3 pitting edema in bilateral lower extremities and shortness of breath. BNP elevated at 1104. 06/30/17 TTE with EF 30-35%, mildly dilated LV, global LV systolic dysfunction, grossly, mildly dilated and hypokinetic right ventricle, mild TR (EF previously 18% at [facility] 12/2016). Lasix on hold with worsening renal function. Fluid removal via ultrafiltration/HD per nephrology. Evaluated by cardiology who noted K consider adding an CAROLANN/ARB or entresto if dialysis becomes permanent. Monitor fluid status. Qualifiers: Congestive heart failure type: systolic Congestive heart failure chronicity : acute on chronic Qualified Code(s): I50.23 - Acute on chronic systolic ( congestive) heart failure (3) Anasarca Current Visit: Yes Status: Acute Assessment and plan: Multifactorial with worsening renal function and acute diastolic heart failure. Continue ultrafiltration/HD. (4) Cardiomyopathy Current Visit: Yes Status: Chronic Assessment and plan: suspected. Patient did not have LHC due to renal function but did have a negative stress at [facility] and cardiomyopathy is thought to be nonischemic. Continue telemetry. Qualifiers: Cardiomyopathy type: unspecified Qualified Code(s): I42.9 - Cardiomyopathy , unspecified (5) Hypothyroid Current Visit: Yes Status: Acute Assessment and plan: Chronic. Continue home medication. 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 Cont home BP medications Qualifiers: Hypertension type: essential hypertension Qualified Code(s): I10 - Essential (primary) hypertension (7) DMII (diabetes mellitus, type 2) Current Visit: Yes Status: Acute Assessment and plan: per hx. Hgb A1c 7.3%. Continue SSI. 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 Attempt to encourage lifestyle modifications. (9) Anemia Current Visit: Yes Status: Acute Assessment and plan: anemia of chronic disease secondary to CKD. Hgb progressively declining since . No active bleeding. Hemodynamically stable. Received IV iron this hospitalization. Goal Hgb 10-11 per nephrology recommendation. Continue on Aranesp. Receive 1 unit PRBC on 07/27/17. No active bleeding. Monitor repeat H &H. Qualifiers: Anemia type: other cause Other causes of anemia: chronic disease, other Qualified Code(s): D63.8 - Anemia in other chronic diseases classified elsewhere (10) Hyponatremia Current Visit: Yes Status: Acute Assessment and plan: In the setting of volume overload. Na 131. Neurologically intact. Monitor repeat BMP. (11) DVT prophylaxis Current Visit: Yes Status: Acute Assessment and plan: Heparin - Time Spent With Patient Total time spent is greater than 50% in coordination of care (as documented) at patient's floor/unit and/or counseling patient: - Subjective Interval history: Seen and examined at bedside; says she did not sleep well last night due to right neck pain. She is complaining of 10 out of 10 pain at temporary right IJ HD site which was removed yesterday. Shortness of breath continues to improve. She still feels pretty swollen. Does not see much difference in her lower extremity edema. - Constitutional Vitals: Temp Pulse Resp BP Pulse Ox 97.7 F 80 16 178/97 92 07/27/17 11:19 07/27/17 11:19 07/27/17 11:19 07/27/17 11:19 07/27/17 11:19 General appearance: Present: cooperative, A&O X 3, morbidly obese, pleasant, no acute distress, answers questions appropriately - Head Head exam: Present: atraumatic, normocephalic - Eye Eye exam: Present: PERRL, conjuntiva pink, sclera anicteric Pupils: Present: PERRL - Neck Neck exam general surgery: Present: supple, trachea midline. Absent: lymphadenopathy - Respiratory Respiratory exam: Present: CTAB. Absent: accessory muscle use, rales, rhonchi, wheezes - Cardiovascular Cardiovascular exam: Present: RRR, +S1, +S2. Absent: diastolic murmur, gallop, rubs, systolic murmur - GI/Abdominal GI/Abdominal exam: Present: normal bowel sounds, soft, no peritoneal signs. Absent: distended, tenderness Additional comments: ABD obese, with significant ascites. - Extremities Exam Extremities exam: Present: pedal edema, warm, radial pulses palpable and symmetrical. Absent: calf tenderness, cyanotic - Neurological Exam Neurological exam: Present: CN II-XII intact, oriented X3, no focal deficits. Absent: pronater drift, facial droop, speech deficit - Skin Skin exam: Present: dry, intact Internal Medicine: Result - Labs CBC & Chem 7: 07/27/17 04:00 07/27/17 04:00 Labs: Short CBC 07/27/17 Range/Units 04:00 WBC 5.5 (4.3-11.1) K/mcL Hgb 8.1 L (11.5-15.4) g/dL Hct 26.1 L (35.3-44.9) % Plt Count 133 L (140-400) K/mcL BMP 07/27/17 04:00 Sodium 131 L Potassium 4.0 Chloride 96 L Carbon Dioxide 26 BUN 42 H Creatinine 2.85 H Glucose 181 H Calcium 8.5 L - ABG Interpretation ABG results: PT/INR, D-dimer PT 13.6 Seconds (9.4-12.1) H 07/19/17 04:23 - Impressions Impressions Guidance Needle Placement Ultrasound 07/26/17 00:00 IMPRESSION: Successful ultrasound and fluoroscopy guided tunneled catheter placement . D/ / Ty Davidson MD / Ty Davidson MD Interpreting Provider: Ty Davidson MD Insertion Tunneled Catheter 07/26/17 00:00 IMPRESSION: Successful ultrasound and fluoroscopy guided tunneled catheter placement . D/ / Ty Davidson MD / Ty Davidson MD Interpreting Provider: Ty Davidson MD - VTE Documentation of Mechanical Device: Intermittent pneumatic compression device Consult Discharge Plan - Plan Referrals: Nathaniel Martin MD [Partnered Physician] - 08/25/17 1:00 pm Ramiro Vargas DO [Primary Care Provider] - 08/18/17 3:15 pm
[2017-07-28] MEDS: *HR* OxyCODONE Immed Rel 5 MG TABLET PO PRN ×3 (06:11→21:00)
[2017-07-28] MEDS ORDERED: 0.9 % Sodium Chloride 250 ML IVC PRN (07:51)
[2017-07-28] MEDS ORDERED: *HR* Heparin 10,000 UNIT/10 ML VIAL IV PRN (07:51)
[2017-07-28] MEDS ORDERED: 0.9 % Sodium Chloride 1,000 ML PRIME SCH (08:00)
[2017-07-28] MEDS: Aspirin Enteric Coated 81 MG Tablet PO SCH (08:08)
[2017-07-28] MEDS: Loratadine 10 MG TABLET PO SCH (08:08)
[2017-07-28] MEDS: Gabapentin 300 MG CAPSULE PO SCH ×2 (08:08→20:59)
[2017-07-28] MEDS: Valsartan 80 MG TABLET PO SCH ×2 (08:09→21:00)
[2017-07-28] MEDS: hydrALAZINE 25 MG TABLET PO SCH ×3 (08:09→20:59)
[2017-07-28] MEDS: Insulin LISPRO 300 UNITS/3 ML VIAL SQ SCH ×4 (08:10→21:01)
[2017-07-28] MEDS ORDERED: 0.9 % Sodium Chloride 1,000 ML ONE (08:20)
--- NOTE | 2017-07-28 09:12 | Nephrology Progress Note ---
Date of Encounter: 07/28/17 Time of Encounter: 09:10 - Assessment and Plan (1) CKD (chronic kidney disease) Current Visit: Yes Status: Chronic UF in progress. Continue to renal dose and avoid nephrotoxins if possible. No labs ordered this am. Qualifiers: Chronic kidney disease stage: unspecified stage Qualified Code(s): N18.9 - Chronic kidney disease, unspecified (2) Anasarca Current Visit: Yes Status: Acute Per primary team. (3) CHF (congestive heart failure), NYHA class III Current Visit: Yes Status: Acute Per primary team. Qualifiers: Congestive heart failure type: systolic Congestive heart failure chronicity : acute on chronic Qualified Code(s): I50.23 - Acute on chronic systolic ( congestive) heart failure (4) Anemia Current Visit: Yes Status: Acute Goal Hgb 10-11. Hgb 8.1 yesterday, no labs ordered for today. Qualifiers: Anemia type: other cause Other causes of anemia: chronic disease, other Qualified Code(s): D63.8 - Anemia in other chronic diseases classified elsewhere (5) Depressed Current Visit: Yes Status: Acute Improving. Qualifiers: Qualified Code(s): F32.9 - Major depressive disorder, single episode, unspecified Subjective Principal diagnosis: Biventricular CHF Interval history: Pt seen and examined in dialylsis unit, tolerating UF well. No CP/SOB, nausea, vomiting. Right Tunneled Cath placed yesterday. Objective - Vital Signs Vital signs: Vital Signs Temp Pulse Resp BP Pulse Ox 07/28/17 08:00 93 07/28/17 07:21 98.0 F 68 16 143/80 93 07/28/17 03:49 97.7 F 74 17 133/80 91 07/27/17 22:50 97.4 F L 78 17 150/84 91 07/27/17 19:00 97.6 F 101 16 134/71 92 07/27/17 15:53 98.9 F 76 16 128/80 94 07/27/17 11:19 97.7 F 80 16 178/97 92 07/27/17 10:56 97.4 F L 18 188/86 07/27/17 10:07 97.4 F L 86 20 187/80 07/27/17 09:45 166/86 07/27/17 09:30 166/65 07/27/17 09:15 172/80 Intake and Output 07/27/17 07/28/17 07/28/17 23:59 07:59 15:59 Intake Total 240 / 240 Output Total 450 / 450 Balance 240 / 240 -450 / -450 Intake: Oral 240 / 240 Output: Urine 450 / 450 Other: Meal water pitcher Weight 134.3 kg Blood Glucose* 232 190 Patient Weight 07/28/17 23:59 Weight 134.3 kg - General Appearance General appearance: Present: obese EENT: Present: ATNC, hearing intact, vision intact Neck: Present: supple Respiratory: Present: clear Cardiology: Present: edema (+1 BLE.), regular rate, regular rhythm Dialysis Vascular Access: Venous Catheter (Right chest perma cath, DRSG C/D/I.) Gastrointestinal: Present: normoactive bowel sounds, no tenderness, no guarding Integumentary: Present: no rash, warm and dry Neurologic: Present: alert and oriented x3 Psychiatric: Present: mood/affect appropriate, cooperative - Lab 07/27/17 04:00 07/27/17 04:00 Most recent lab results Calcium 8.5 mg/dL (8.6-10.3) L 07/27/17 04:00 Phosphorus 4.9 mg/dL (2.7-4.5) H 07/20/17 05:40 Magnesium 1.6 mg/dL (1.6-2.6) 07/20/17 05:40 - VTE Documentation of Mechanical Device: Intermittent pneumatic compression device Consult Discharge Plan - Plan Referrals: Nathaniel Martin MD [Partnered Physician] - 08/25/17 1:00 pm Ramiro Vargas DO [Primary Care Provider] - 08/18/17 3:15 pm
--- NOTE | 2017-07-28 16:18 | Internal Med Progress Note ---
Date of Encounter: 07/28/17 Time of Encounter: 16:13 - Assessment and plan (1) CKD (chronic kidney disease) Current Visit: Yes Status: Chronic Assessment and plan: Has known acute diastolic heart failure with advanced chronic heart failure and progressive renal decline. Has not consistently followed up with nephrology. Now with worsening renal function/decline with cycles of worsening edema requiring more diuretics and worsening creatinine. HD/ultrafiltration initiated this admission. Tunneled HD catheter placed 07/26/17. She will require outpatient dialysis. Nephrology following Qualifiers: Chronic kidney disease stage: unspecified stage Qualified Code(s): N18.9 - Chronic kidney disease, unspecified (2) CHF (congestive heart failure), NYHA class III Current Visit: Yes Status: Acute Assessment and plan: Acute exacerbation of biventricular heart failure. Clinically fluid overloaded with anasarca, +2-3 pitting edema in bilateral lower extremities and shortness of breath. BNP elevated at 1104. 06/30/17 TTE with EF 30-35%, mildly dilated LV, global LV systolic dysfunction, grossly, mildly dilated and hypokinetic right ventricle, mild TR (EF previously 18% at [facility] 12/2016). Lasix on hold with worsening renal function. Fluid removal via ultrafiltration/HD per nephrology. Evaluated by cardiology who noted K consider adding an CAROLANN/ARB or entresto if dialysis becomes permanent. Monitor fluid status. Qualifiers: Congestive heart failure type: systolic Congestive heart failure chronicity : acute on chronic Qualified Code(s): I50.23 - Acute on chronic systolic ( congestive) heart failure (3) Anasarca Current Visit: Yes Status: Acute Assessment and plan: Multifactorial with worsening renal function and acute diastolic heart failure. Continue ultrafiltration/HD. (4) Cardiomyopathy Current Visit: Yes Status: Chronic Assessment and plan: suspected. Patient did not have LHC due to renal function but did have a negative stress at [facility] and cardiomyopathy is thought to be nonischemic. Continue telemetry. Qualifiers: Cardiomyopathy type: unspecified Qualified Code(s): I42.9 - Cardiomyopathy , unspecified (5) Hypothyroid Current Visit: Yes Status: Acute Assessment and plan: Chronic. Continue home medication. 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 Cont home BP medications Qualifiers: Hypertension type: essential hypertension Qualified Code(s): I10 - Essential (primary) hypertension (7) DMII (diabetes mellitus, type 2) Current Visit: Yes Status: Acute Assessment and plan: per hx. Hgb A1c 7.3%. Continue SSI. Monitor blood sugars and titrate PRN Qualifiers: Diabetes mellitus terminal makeup operator insulin use: unspecified terminal makeup operator insulin use status Diabetes mellitus complication status: with kidney complications Diabetes mellitus complication detail: with chronic kidney disease Chronic kidney disease stage: stage 5, not on chronic dialysis Qualified Code(s): E11.22 - Type 2 diabetes mellitus with diabetic chronic kidney disease; N18.5 - Chronic kidney disease, stage 5 (8) Morbid obesity Current Visit: Yes Status: Chronic Assessment and plan: BMI 60.1. Attempt to encourage lifestyle modifications. (9) Anemia Current Visit: Yes Status: Acute Assessment and plan: anemia of chronic disease secondary to CKD. Hgb progressively declining since . No active bleeding. Hemodynamically stable. Received IV iron this hospitalization. Goal Hgb 10-11 per nephrology recommendation. Continue on Aranesp. Receive 1 unit PRBC on 07/27/17. No active bleeding. Monitor repeat H &H. Repeat CBC pending Qualifiers: Anemia type: other cause Other causes of anemia: chronic disease, other Qualified Code(s): D63.8 - Anemia in other chronic diseases classified elsewhere (10) Hyponatremia Current Visit: Yes Status: Acute Assessment and plan: In the setting of volume overload. Na 131. Neurologically intact. Monitor repeat BMP. (11) DVT prophylaxis Current Visit: Yes Status: Acute Assessment and plan: Heparin - Time Spent With Patient Total time spent is greater than 50% in coordination of care (as documented) at patient's floor/unit and/or counseling patient: - Subjective Interval history: Seen and examined at bedside; still c/o right sided neck pain. Says she thinks she needs more time in the hospital is worried about being discharged home due to significant edema and the fact that she has stairs at home. Has some shortness of breath with exertion. No chest pain. She feels swelling is overall improved - Constitutional Vitals: Temp Pulse Resp BP Pulse Ox 98.1 F 74 16 143/67 93 07/28/17 15:19 07/28/17 15:19 07/28/17 15:19 07/28/17 15:19 07/28/17 15:19 General appearance: Present: cooperative, A&O X 3, morbidly obese, pleasant, no acute distress, answers questions appropriately - Head Head exam: Present: atraumatic, normocephalic - Eye Eye exam: Present: PERRL, conjuntiva pink, sclera anicteric Pupils: Present: PERRL - Neck Neck exam general surgery: Present: supple, trachea midline. Absent: lymphadenopathy - Respiratory Respiratory exam: Present: CTAB. Absent: accessory muscle use, rales, rhonchi, wheezes - Cardiovascular Cardiovascular exam: Present: RRR, +S1, +S2. Absent: diastolic murmur, gallop, rubs, systolic murmur - GI/Abdominal GI/Abdominal exam: Present: normal bowel sounds, no peritoneal signs. Absent: distended, soft (Abdomen hard, obese, firm with significant pitting edema), tenderness - Extremities Exam Extremities exam: Present: pedal edema (I lateral lower extremity pitting edema) , warm, radial pulses palpable and symmetrical. Absent: calf tenderness, cyanotic - Neurological Exam Neurological exam: Present: CN II-XII intact, oriented X3, no focal deficits. Absent: pronater drift, facial droop, speech deficit - Skin Skin exam: Present: dry, intact Internal Medicine: Result - Labs CBC & Chem 7: 07/27/17 04:00 07/27/17 04:00 - ABG Interpretation ABG results: PT/INR, D-dimer PT 13.6 Seconds (9.4-12.1) H 07/19/17 04:23 - VTE Documentation of Mechanical Device: Intermittent pneumatic compression device Consult Discharge Plan - Plan Referrals: Nathaniel Martin MD [Partnered Physician] - 08/25/17 1:00 pm Ramiro Vargas DO [Primary Care Provider] - 08/18/17 3:15 pm
[2017-07-28 16:59] LABS: Hematocrit 28.7 % (35.3-44.9); Hemoglobin 8.8 g/dL (11.5-15.4); Mean Corpuscular HGB Conc 30.7 g/dL (31.6-35.5); Mean Corpuscular Hemoglobin 28.8 pg (28.0-33.3); Mean Corpuscular Volume 93.8 fL (83.0-100.0); Platelet Count 135 K/mcL (140-400); Red Blood Count 3.06 M/mcL (3.82-4.97); Red Cell Distribution Width 14.7 % (11.5-14.5)
[2017-07-28 17:22] LABS: Calcium 8.4 mg/dL (8.6-10.3); Potassium 3.9 mEq/L (3.5-5.1)
[2017-07-29] MEDS: *HR* OxyCODONE Immed Rel 5 MG TABLET PO PRN ×3 (05:51→21:01)
[2017-07-29 05:59] LABS: Hemoglobin 8.9 g/dL (11.5-15.4); Mean Corpuscular HGB Conc 31.8 g/dL (31.6-35.5); Mean Corpuscular Hemoglobin 29.9 pg (28.0-33.3); Mean Platelet Volume 11.9 fL (9.4-12.4); Platelet Count 141 K/mcL (140-400); Red Blood Count 2.98 M/mcL (3.82-4.97); Red Cell Distribution Width 14.6 % (11.5-14.5)
[2017-07-29 06:22] LABS: Calcium 8.4 mg/dL (8.6-10.3)
[2017-07-29] MEDS ORDERED: 0.9 % Sodium Chloride 250 ML IVC PRN (08:08)
[2017-07-29] MEDS ORDERED: 0.9 % Sodium Chloride 1,000 ML PRIME SCH (08:15)
[2017-07-29] MEDS: Insulin LISPRO 300 UNITS/3 ML VIAL SQ SCH ×4 (09:03→21:05)
[2017-07-29] MEDS: Aspirin Enteric Coated 81 MG Tablet PO SCH (09:04)
[2017-07-29] MEDS: Loratadine 10 MG TABLET PO SCH (09:04)
[2017-07-29] MEDS: Valsartan 80 MG TABLET PO SCH ×2 (09:05→21:01)
[2017-07-29] MEDS: hydrALAZINE 25 MG TABLET PO SCH ×3 (09:05→21:02)
[2017-07-29] MEDS: Gabapentin 300 MG CAPSULE PO SCH ×2 (09:06→21:01)
--- NOTE | 2017-07-29 13:10 | Nephrology Progress Note ---
<Kristie Chan - Last Filed: 07/29/17 13:07> Date of Encounter: 07/29/17 Time of Encounter: 13:07 - Assessment and Plan (1) CKD (chronic kidney disease) Current Visit: Yes Status: Chronic HD n progress. Continue to renal dose and avoid nephrotoxins if possible. Would like to keep inpatient until Tuesday to be able to do UF as needed over the weekend. Qualifiers: Chronic kidney disease stage: unspecified stage Qualified Code(s): N18.9 - Chronic kidney disease, unspecified (2) Anasarca Current Visit: Yes Status: Acute Per primary team. (3) CHF (congestive heart failure), NYHA class III Current Visit: Yes Status: Acute Per primary team. Qualifiers: Congestive heart failure type: systolic Congestive heart failure chronicity : acute on chronic Qualified Code(s): I50.23 - Acute on chronic systolic ( congestive) heart failure (4) Anemia Current Visit: Yes Status: Acute Goal Hgb 10-11. Hgb 8.9 today. Qualifiers: Anemia type: other cause Other causes of anemia: chronic disease, other Qualified Code(s): D63.8 - Anemia in other chronic diseases classified elsewhere (5) Depressed Current Visit: Yes Status: Acute Improving. Qualifiers: Qualified Code(s): F32.9 - Major depressive disorder, single episode, unspecified Subjective Principal diagnosis: Biventricular CHF Interval history: Pt seen and examined in dialylsis unit, tolerating HD well. No CP/SOB, nausea, vomiting. Objective - Vital Signs Vital signs: Vital Signs Temp Pulse Resp BP Pulse Ox 07/29/17 12:38 97.8 F 18 120/68 07/29/17 12:07 98.4 F 80 16 152/77 93 07/29/17 11:30 117/54 07/29/17 11:15 109/58 07/29/17 11:00 110/60 07/29/17 10:45 110/62 07/29/17 10:30 107/57 07/29/17 10:15 114/68 07/29/17 10:00 131/79 07/29/17 09:45 147/80 07/29/17 09:30 143/86 07/29/17 09:15 146/93 07/29/17 09:00 152/93 07/29/17 08:45 150/86 07/29/17 08:30 146/81 07/29/17 08:15 149/81 07/29/17 08:00 99.2 F 18 150/84 07/29/17 03:07 98.3 F 71 18 122/73 90 07/28/17 23:13 97.8 F 75 18 118/68 92 07/28/17 18:47 98.3 F 76 18 132/79 92 07/28/17 15:19 98.1 F 74 16 143/67 93 Intake and Output 07/28/17 07/29/17 07/29/17 23:59 07:59 15:59 Intake Total 880 / 880 400 / 400 600 / 600 Output Total 100 / 100 5600 / 5600 Balance 780 / 780 400 / 400 -5000 / -5000 Intake: Oral 880 / 880 400 / 400 0 / 0 Intake, Rinseback and Flushes 600 / 600 Output: Urine 100 / 100 0 / 0 Total Dialysis (HD) Output 5600 / 5600 Other: Meal Dinner Percent of Meal Consumed 100% Weight 130.3 kg Blood Glucose* 215 200 195 Hemodialysis Net Fluid Removed 5000 (mL) Patient Weight 07/29/17 23:59 Weight 130.3 kg - General Appearance General appearance: Present: obese, chronically ill EENT: Present: ATNC, hearing intact, vision intact Neck: Present: supple Respiratory: Present: clear Cardiology: Present: edema (+1 pitting edema BLE.), normal S1, normal S2 Dialysis Vascular Access: Venous Catheter (Right permacath, DRSG C/D/I.) Gastrointestinal: Present: normoactive bowel sounds, no tenderness, no guarding , obese Integumentary: Present: no rash, warm and dry Neurologic: Present: alert and oriented x3 Psychiatric: Present: mood/affect appropriate, cooperative - Lab 07/29/17 05:29 07/29/17 05:29 Most recent lab results Calcium 8.4 mg/dL (8.6-10.3) L 07/29/17 05:29 Phosphorus 4.9 mg/dL (2.7-4.5) H 07/20/17 05:40 Magnesium 1.6 mg/dL (1.6-2.6) 07/20/17 05:40 - VTE Documentation of Mechanical Device: Intermittent pneumatic compression device Consult Discharge Plan - Plan Referrals: Nathaniel Martin MD [Partnered Physician] - 08/25/17 1:00 pm Ramiro Vargas DO [Primary Care Provider] - 08/18/17 3:15 pm <Grisel Johnson - Last Filed: 07/30/17 11:52> Date of Encounter: 07/29/17 - Assessment and Plan (1) Anasarca Current Visit: Yes Status: Acute (2) KAYA (acute kidney injury) Current Visit: Yes Status: Acute Objective - Vital Signs Vital signs: Vital Signs Temp Pulse Resp BP Pulse Ox 07/30/17 07:39 97.6 F 71 16 135/68 93 07/30/17 03:32 99.6 F 73 17 128/74 89 07/29/17 23:10 98.9 F 79 16 134/71 92 07/29/17 18:25 98.3 F 85 16 164/83 92 07/29/17 15:21 98.2 F 83 16 162/85 94 07/29/17 12:38 97.8 F 18 120/68 07/29/17 12:07 98.4 F 80 16 152/77 93 Intake and Output 07/29/17 07/30/17 07/30/17 23:59 07:59 15:59 Intake Total 480 / 480 150 / 150 150 / 150 Output Total 150 / 150 Balance 480 / 480 0 / 0 150 / 150 Intake: Oral 480 / 480 100 / 100 150 / 150 Free Water 50 / 50 Output: Urine 150 / 150 Other: Meal Dinner Breakfast Percent of Meal Consumed 100% 75% # Voids 1 # Bowel Movements 1 Weight 130.3 kg Blood Glucose* 231 184 Patient Weight 07/30/17 23:59 Weight 130.3 kg - Lab 07/30/17 05:36 07/30/17 05:36 Most recent lab results Calcium 8.4 mg/dL (8.6-10.3) L 07/30/17 05:36 Phosphorus 4.9 mg/dL (2.7-4.5) H 07/20/17 05:40 Magnesium 1.6 mg/dL (1.6-2.6) 07/20/17 05:40 - Attending Attestation I examined this patient and my medical decision-making was reviewed with the Resident Physician/VOLUNTEER SERVICES ASSISTANT. I agree with the documented findings, disposition and treatment plan as described except to the extent set forth below. Pt seen and examined on HD feeling better with less edema. on exam dcerased LE edema noted but still with significant edema extending to abdomen. Willc ontinue HD today with aggressive UF. Plan to have another session for UF tomorrow as well. Continue fluid restriction
--- NOTE | 2017-07-29 15:14 | Internal Med Progress Note ---
Date of Encounter: 07/29/17 Time of Encounter: 15:14 - Assessment and plan (1) CKD (chronic kidney disease) Current Visit: Yes Status: Chronic Assessment and plan: Has known acute diastolic heart failure with advanced chronic heart failure and progressive renal decline. Has not consistently followed up with nephrology. Now with worsening renal function/decline with cycles of worsening edema requiring more diuretics and worsening creatinine. HD/ultrafiltration initiated this admission. Tunneled HD catheter placed 07/26/17. She will require outpatient dialysis. Nephrology following Qualifiers: Chronic kidney disease stage: unspecified stage Qualified Code(s): N18.9 - Chronic kidney disease, unspecified (2) CHF (congestive heart failure), NYHA class III Current Visit: Yes Status: Acute Assessment and plan: Acute exacerbation of biventricular heart failure. Clinically fluid overloaded with anasarca, +2-3 pitting edema in bilateral lower extremities and shortness of breath. BNP elevated at 1104. 06/30/17 TTE with EF 30-35%, mildly dilated LV, global LV systolic dysfunction, grossly, mildly dilated and hypokinetic right ventricle, mild TR (EF previously 18% at [facility] 12/2016). Lasix on hold with worsening renal function. Fluid removal via ultrafiltration/HD per nephrology. Evaluated by cardiology who noted K consider adding an CAROLANN/ARB or entresto if dialysis becomes permanent. Monitor fluid status. Qualifiers: Congestive heart failure type: systolic Congestive heart failure chronicity : acute on chronic Qualified Code(s): I50.23 - Acute on chronic systolic ( congestive) heart failure (3) Cardiomyopathy Current Visit: Yes Status: Chronic Assessment and plan: We will repeat 2d echo Qualifiers: Cardiomyopathy type: unspecified Qualified Code(s): I42.9 - Cardiomyopathy , unspecified (4) Hypothyroid Current Visit: Yes Status: Acute Assessment and plan: Chronic. Continue home medication. 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 Cont home BP medications Qualifiers: Hypertension type: essential hypertension Qualified Code(s): I10 - Essential (primary) hypertension (6) DMII (diabetes mellitus, type 2) Current Visit: Yes Status: Acute Assessment and plan: per hx. Hgb A1c 7.3%. Continue SSI. Monitor blood sugars and titrate PRN Qualifiers: Diabetes mellitus custodial insulin use: unspecified long term care pharmacist insulin use status Diabetes mellitus complication status: with kidney complications Diabetes mellitus complication detail: with chronic kidney disease Chronic kidney disease stage: stage 5, not on chronic dialysis Qualified Code(s): E11.22 - Type 2 diabetes mellitus with diabetic chronic kidney disease; N18.5 - Chronic kidney disease, stage 5 (7) Anasarca Current Visit: Yes Status: Acute Assessment and plan: Multifactorial with worsening renal function and acute diastolic heart failure. Continue ultrafiltration/HD. (8) Morbid obesity Current Visit: Yes Status: Chronic Assessment and plan: BMI 60.1. Attempt to encourage lifestyle modifications. (9) Hyponatremia Current Visit: Yes Status: Acute Assessment and plan: In the setting of volume overload. Neurologically intact. Monitor repeat BMP. (10) DVT prophylaxis Current Visit: Yes Status: Acute Assessment and plan: heparin - Time Spent With Patient Total time spent is greater than 50% in coordination of care (as documented) at patient's floor/unit and/or counseling patient: - Subjective Interval history: Seen and examined at bedside; says she feels overall better. She thinks swelling has significantly improved - Constitutional Vitals: Temp Pulse Resp BP Pulse Ox 97.8 F 80 18 120/68 93 07/29/17 12:38 07/29/17 12:07 07/29/17 12:38 07/29/17 12:38 07/29/17 12:07 General appearance: Present: A&O X 3, morbidly obese - Head Head exam: Present: atraumatic, normocephalic - Eye Eye exam: Present: PERRL, conjuntiva pink, sclera anicteric Pupils: Present: PERRL - Neck Neck exam general surgery: Present: supple, trachea midline. Absent: lymphadenopathy - Respiratory Respiratory exam: Present: CTAB. Absent: accessory muscle use, rales, rhonchi, wheezes - Cardiovascular Cardiovascular exam: Present: RRR, +S1, +S2. Absent: diastolic murmur, gallop, rubs, systolic murmur - GI/Abdominal GI/Abdominal exam: Present: normal bowel sounds, soft, no peritoneal signs. Absent: distended, tenderness Additional comments: Obese with severe hard, pitting edema - Extremities Exam Extremities exam: Present: pedal edema, warm, radial pulses palpable and symmetrical. Absent: calf tenderness, cyanotic - Neurological Exam Neurological exam: Present: CN II-XII intact, oriented X3, no focal deficits. Absent: pronater drift, facial droop, speech deficit - Skin Skin exam: Present: dry, intact Internal Medicine: Result - Labs CBC & Chem 7: 07/29/17 05:29 07/29/17 05:29 Labs: Short CBC 07/28/17 07/29/17 Range/Units 16:46 05:29 WBC 5.6 6.5 (4.3-11.1) K/mcL Hgb 8.8 L 8.9 L (11.5-15.4) g/dL Hct 28.7 L 28.0 L (35.3-44.9) % Plt Count 135 L 141 (140-400) K/mcL BMP 07/28/17 07/29/17 16:46 05:29 Sodium 129 L 128 L Potassium 3.9 4.0 Chloride 93 L 93 L Carbon Dioxide 27 26 BUN 38 H 43 H Creatinine 3.16 H 3.48 H Glucose 226 H 205 H Calcium 8.4 L 8.4 L - ABG Interpretation ABG results: PT/INR, D-dimer PT 13.6 Seconds (9.4-12.1) H 07/19/17 04:23 - VTE Documentation of Mechanical Device: Intermittent pneumatic compression device Consult Discharge Plan - Plan Referrals: Nathaniel Martin MD [Partnered Physician] - 08/25/17 1:00 pm Ramiro Vargas DO [Primary Care Provider] - 08/18/17 3:15 pm
[2017-07-30 06:52] LABS: Hematocrit 27.9 % (35.3-44.9); Hemoglobin 8.6 g/dL (11.5-15.4); Mean Corpuscular HGB Conc 30.8 g/dL (31.6-35.5); Mean Corpuscular Hemoglobin 28.7 pg (28.0-33.3); Mean Platelet Volume 12.2 fL (9.4-12.4); Platelet Count 146 K/mcL (140-400); Red Cell Distribution Width 14.5 % (11.5-14.5)
[2017-07-30 07:18] LABS: Calcium 8.4 mg/dL (8.6-10.3); Potassium 3.9 mEq/L (3.5-5.1)
--- NOTE | 2017-07-30 08:57 | Internal Med Progress Note ---
Date of Encounter: 07/30/17 Time of Encounter: 08:55 - Assessment and plan (1) CKD (chronic kidney disease) Current Visit: Yes Status: Chronic Assessment and plan: Has known acute diastolic heart failure with advanced chronic heart failure and progressive renal decline. Has not consistently followed up with nephrology. Now with worsening renal function/decline with cycles of worsening edema requiring more diuretics and worsening creatinine. HD/ultrafiltration initiated this admission. Tunneled HD catheter placed 07/26/17. She will require outpatient dialysis. Nephrology following Qualifiers: Chronic kidney disease stage: unspecified stage Qualified Code(s): N18.9 - Chronic kidney disease, unspecified (2) CHF (congestive heart failure), NYHA class III Current Visit: Yes Status: Acute Assessment and plan: Acute exacerbation of biventricular heart failure. Clinically fluid overloaded with anasarca, +2-3 pitting edema in bilateral lower extremities and shortness of breath. BNP 1104. 06/30/17 TTE with EF 30-35%, mildly dilated LV, global LV systolic dysfunction, grossly, mildly dilated and hypokinetic right ventricle, mild TR (EF previously 18% at [facility] 12/2016). Lasix on hold with worsening renal function. Fluid removal via ultrafiltration/HD per nephrology. Cont ASA, ARB, BB. Cardiology followed. Monitor fluid status. Down 51 lbs as of 07/30/17 Qualifiers: Congestive heart failure type: systolic Congestive heart failure chronicity : acute on chronic Qualified Code(s): I50.23 - Acute on chronic systolic ( congestive) heart failure (3) Hyponatremia Current Visit: Yes Status: Acute Assessment and plan: In the setting of volume overload. Neurologically intact. Monitor repeat BMP. Na 129 on 07/30 (4) Hypothyroid Current Visit: Yes Status: Acute Assessment and plan: Chronic. Continue home medication. 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 Cont home BP medications Qualifiers: Hypertension type: essential hypertension Qualified Code(s): I10 - Essential (primary) hypertension (6) DMII (diabetes mellitus, type 2) Current Visit: Yes Status: Acute Assessment and plan: per hx. Hgb A1c 7.3%. Continue SSI. Monitor blood sugars and titrate PRN Qualifiers: Diabetes mellitus mcc insulin use: unspecified long term care social worker insulin use status Diabetes mellitus complication status: with kidney complications Diabetes mellitus complication detail: with chronic kidney disease Chronic kidney disease stage: stage 5, not on chronic dialysis Qualified Code(s): E11.22 - Type 2 diabetes mellitus with diabetic chronic kidney disease; N18.5 - Chronic kidney disease, stage 5 (7) Anasarca Current Visit: Yes Status: Acute Assessment and plan: Multifactorial with worsening renal function and acute diastolic heart failure. Continue ultrafiltration/HD. (8) Morbid obesity Current Visit: Yes Status: Chronic Assessment and plan: BMI 60.1. Attempt to encourage lifestyle modifications. (9) DVT prophylaxis Current Visit: Yes Status: Acute Assessment and plan: heparin - Time Spent With Patient Total time spent is greater than 50% in coordination of care (as documented) at patient's floor/unit and/or counseling patient: - Subjective Interval history: Seen and examined at bedside; says she had an uneventful night. Complaining of some right neck pain from where temporary dialysis catheter was removed. Also complaining of discomfort abdomen secondary to edema. No chest pain or shortness of breath. Still making urine - Constitutional Vitals: Temp Pulse Resp BP Pulse Ox 97.6 F 71 16 135/68 93 07/30/17 07:39 07/30/17 07:39 07/30/17 07:39 07/30/17 07:39 07/30/17 07:39 General appearance: Present: A&O X 3, morbidly obese - Head Head exam: Present: atraumatic, normocephalic - Eye Eye exam: Present: PERRL, conjuntiva pink, sclera anicteric Pupils: Present: PERRL - Neck Neck exam general surgery: Present: supple, trachea midline. Absent: lymphadenopathy - Respiratory Respiratory exam: Present: CTAB. Absent: accessory muscle use, rales, rhonchi, wheezes - Cardiovascular Cardiovascular exam: Present: RRR, +S1, +S2. Absent: diastolic murmur, gallop, rubs, systolic murmur - GI/Abdominal GI/Abdominal exam: Present: normal bowel sounds, soft, tenderness (ABD obese with significant edema ), no peritoneal signs. Absent: distended - Extremities Exam Extremities exam: Present: pedal edema (Bilateral pitting pedal edema improved from yesterday's exam), warm, radial pulses palpable and symmetrical. Absent: calf tenderness, cyanotic - Neurological Exam Neurological exam: Present: CN II-XII intact, oriented X3, no focal deficits. Absent: pronater drift, facial droop, speech deficit - Skin Skin exam: Present: dry, intact Internal Medicine: Result - Labs CBC & Chem 7: 07/30/17 05:36 07/30/17 05:36 Labs: Short CBC 07/30/17 Range/Units 05:36 WBC 6.1 (4.3-11.1) K/mcL Hgb 8.6 L (11.5-15.4) g/dL Hct 27.9 L (35.3-44.9) % Plt Count 146 (140-400) K/mcL BMP 07/30/17 05:36 Sodium 129 L Potassium 3.9 Chloride 93 L Carbon Dioxide 28 BUN 35 H Creatinine 2.86 H Glucose 174 H Calcium 8.4 L - ABG Interpretation ABG results: PT/INR, D-dimer PT 13.6 Seconds (9.4-12.1) H 07/19/17 04:23 - VTE Documentation of Mechanical Device: Intermittent pneumatic compression device Consult Discharge Plan - Plan Referrals: Nathaniel Martin MD [Partnered Physician] - 08/25/17 1:00 pm Ramiro Vargas DO [Primary Care Provider] - 08/18/17 3:15 pm
[2017-07-30] MEDS: Aspirin Enteric Coated 81 MG Tablet PO SCH (09:01)
[2017-07-30] MEDS: Gabapentin 300 MG CAPSULE PO SCH ×2 (09:01→19:59)
[2017-07-30] MEDS: Valsartan 80 MG TABLET PO SCH ×2 (09:01→19:59)
[2017-07-30] MEDS: Loratadine 10 MG TABLET PO SCH (09:01)
[2017-07-30] MEDS: hydrALAZINE 25 MG TABLET PO SCH ×3 (09:02→19:59)
[2017-07-30] MEDS: Insulin LISPRO 300 UNITS/3 ML VIAL SQ SCH ×4 (09:04→20:14)
[2017-07-30] MEDS ORDERED: 0.9 % Sodium Chloride 250 ML IVC PRN (09:21)
[2017-07-30] MEDS ORDERED: 0.9 % Sodium Chloride 1,000 ML PRIME SCH (09:30)
--- NOTE | 2017-07-30 11:50 | Nephrology Progress Note ---
Date of Encounter: 07/30/17 Time of Encounter: 12:00 - Assessment and Plan (1) Anasarca Status: Acute Continue UF today with goal of 4-5kg as tolerated (2) KAYA (acute kidney injury) Status: Acute Appears HD dependent at this time, outpatient hD arrange where we will monitor for signs of renal recovery (3) CKD (chronic kidney disease) Status: Chronic Baseline unclear at this point Qualifiers: Chronic kidney disease stage: unspecified stage Qualified Code(s): N18.9 - Chronic kidney disease, unspecified Subjective Principal diagnosis: Biventricular CHF Interval history: Pt seen and examined on HD for extra UF today Objective - Vital Signs Vital signs: Vital Signs Temp Pulse Resp BP Pulse Ox 07/30/17 07:39 97.6 F 71 16 135/68 93 07/30/17 03:32 99.6 F 73 17 128/74 89 07/29/17 23:10 98.9 F 79 16 134/71 92 07/29/17 18:25 98.3 F 85 16 164/83 92 07/29/17 15:21 98.2 F 83 16 162/85 94 07/29/17 12:38 97.8 F 18 120/68 07/29/17 12:07 98.4 F 80 16 152/77 93 Intake and Output 07/29/17 07/30/17 07/30/17 23:59 07:59 15:59 Intake Total 480 / 480 150 / 150 150 / 150 Output Total 150 / 150 Balance 480 / 480 0 / 0 150 / 150 Intake: Oral 480 / 480 100 / 100 150 / 150 Free Water 50 / 50 Output: Urine 150 / 150 Other: Meal Dinner Breakfast Percent of Meal Consumed 100% 75% # Voids 1 # Bowel Movements 1 Weight 130.3 kg Blood Glucose* 231 184 Patient Weight 07/30/17 23:59 Weight 130.3 kg - General Appearance General appearance: Present: chronically ill (NAD) EENT: Present: ATNC, mucous membranes moist Neck: Present: no JVD, supple Respiratory: Present: clear Cardiology: Present: edema (trace LE bilat), normal S1, normal S2 Dialysis Vascular Access: Venous Catheter (permcath) Gastrointestinal: Present: no tenderness, no guarding Integumentary: Present: warm and dry Neurologic: Present: no focal deficit Musculoskeletal: Present: no deformities Psychiatric: Present: mood/affect appropriate - Lab 08/01/17 07:48 08/01/17 07:48 Most recent lab results Calcium 8.4 mg/dL (8.6-10.3) L 07/30/17 05:36 Phosphorus 4.9 mg/dL (2.7-4.5) H 07/20/17 05:40 Magnesium 1.6 mg/dL (1.6-2.6) 07/20/17 05:40 - VTE Documentation of Mechanical Device: Intermittent pneumatic compression device Consult Discharge Plan - Plan Instructions: Heart Failure (DC), Hemodialysis (DC), Dialysis Diet (DC) Additional Instructions: G[facility] Kinney [phone] [address] [place] [address] *[facility] [employer] First chair time is Thursday August 03, 2017 at 4:30pm. Patient must arrive at 4pm to complete admission paperwork. Referrals: Nathaniel Martin MD [Partnered Physician] - 08/25/17 1:00 pm Ramiro Vargas DO [Primary Care Provider] - 08/18/17 3:15 pm Jose Manuel Barragan DO [Partnered Physician] - (Please call the office for follow- up appointment cannot heard from them within 2-3 weeks) Prescriptions: Ferrous Sulfate 325 mg PO Q48H #30 tablet Furosemide [Lasix] 80 mg PO DAILY #60 tablet Valsartan [Diovan] 80 mg PO BID #60 tablet
[2017-07-30] MEDS: *HR* OxyCODONE Immed Rel 5 MG TABLET PO PRN (20:13)
[2017-07-31 07:06] LABS: Hematocrit 29.5 % (35.3-44.9); Hemoglobin 9.1 g/dL (11.5-15.4); Mean Corpuscular HGB Conc 30.8 g/dL (31.6-35.5); Mean Corpuscular Hemoglobin 28.6 pg (28.0-33.3); Mean Corpuscular Volume 92.8 fL (83.0-100.0); Mean Platelet Volume 11.7 fL (9.4-12.4); Platelet Count 168 K/mcL (140-400); Red Blood Count 3.18 M/mcL (3.82-4.97); Red Cell Distribution Width 14.5 % (11.5-14.5)
[2017-07-31 07:19] LABS: Calcium 8.5 mg/dL (8.6-10.3); Potassium 3.9 mEq/L (3.5-5.1)
[2017-07-31] MEDS: Valsartan 80 MG TABLET PO SCH ×2 (08:46→20:51)
[2017-07-31] MEDS: Loratadine 10 MG TABLET PO SCH (08:46)
[2017-07-31] MEDS: Aspirin Enteric Coated 81 MG Tablet PO SCH (08:46)
[2017-07-31] MEDS: Gabapentin 300 MG CAPSULE PO SCH ×2 (08:46→20:52)
[2017-07-31] MEDS: Insulin LISPRO 300 UNITS/3 ML VIAL SQ SCH ×4 (08:47→20:57)
[2017-07-31] MEDS: hydrALAZINE 25 MG TABLET PO SCH ×3 (08:48→20:51)
[2017-07-31] MEDS: *HR* OxyCODONE Immed Rel 5 MG TABLET PO PRN ×2 (08:54→20:51)
--- NOTE | 2017-07-31 12:20 | Nephrology Progress Note ---
Date of Encounter: 07/31/17 - Assessment and Plan (1) Anasarca Current Visit: Yes Status: Acute Continue UF today with goal of 4-5kg as tolerated (2) KAYA (acute kidney injury) Current Visit: Yes Status: Acute Appears HD dependent at this time, outpatient hD arrange where we will monitor for signs of renal recovery (3) CKD (chronic kidney disease) Current Visit: Yes Status: Chronic Baseline unclear at this point Qualifiers: Chronic kidney disease stage: unspecified stage Qualified Code(s): N18.9 - Chronic kidney disease, unspecified Subjective Principal diagnosis: Biventricular CHF Interval history: Pt seen and examined Objective - Vital Signs Vital signs: Vital Signs Temp Pulse Resp BP Pulse Ox 07/31/17 11:33 97.9 F 71 18 133/78 98 07/31/17 09:45 18 130/78 95 07/31/17 07:57 97.9 F 69 18 130/78 95 07/31/17 03:46 97.9 F 73 17 141/74 93 07/30/17 23:11 97.9 F 77 17 118/67 92 07/30/17 20:13 92 07/30/17 19:05 98.7 F 77 17 161/84 92 07/30/17 16:59 98.2 F 76 18 142/78 94 07/30/17 13:01 97.2 F L 72 18 150/81 95 Intake and Output 07/30/17 07/31/17 07/31/17 23:59 07:59 15:59 Intake Total 240 / 240 Output Total 100 / 100 100 / 100 100 / 100 Balance -100 / -100 -100 / -100 140 / 140 Intake: Oral 240 / 240 Output: Urine 100 / 100 100 / 100 100 / 100 Other: Meal Breakfast Percent of Meal Consumed 100% Weight 129.1 kg Blood Glucose* 262 194 201 Patient Weight 07/31/17 23:59 Weight 129.1 kg - Lab 07/31/17 06:20 07/31/17 06:20 Most recent lab results Calcium 8.5 mg/dL (8.6-10.3) L 07/31/17 06:20 Phosphorus 4.9 mg/dL (2.7-4.5) H 07/20/17 05:40 Magnesium 1.6 mg/dL (1.6-2.6) 07/20/17 05:40 - VTE Documentation of Mechanical Device: Intermittent pneumatic compression device Consult Discharge Plan - Plan Referrals: Nathaniel Martin MD [Partnered Physician] - 08/25/17 1:00 pm Ramiro Vargas DO [Primary Care Provider] - 08/18/17 3:15 pm
--- NOTE | 2017-07-31 15:49 | Internal Med Progress Note ---
Date of Encounter: 07/31/17 Time of Encounter: 15:43 - Assessment and plan (1) CKD (chronic kidney disease) Current Visit: Yes Status: Chronic Assessment and plan: Has known acute diastolic heart failure with advanced chronic heart failure and progressive renal decline. Has not consistently followed up with nephrology. Now with worsening renal function/decline with cycles of worsening edema requiring more diuretics and worsening creatinine. HD/ultrafiltration initiated this admission. Tunneled HD catheter placed 07/26/17. She will require outpatient dialysis. Nephrology following. Plan for HD on Tuesday 08/01 with likely discharge home afterwards. Qualifiers: Chronic kidney disease stage: unspecified stage Qualified Code(s): N18.9 - Chronic kidney disease, unspecified (2) CHF (congestive heart failure), NYHA class III Current Visit: Yes Status: Acute Assessment and plan: Acute exacerbation of biventricular heart failure. Clinically fluid overloaded with anasarca, +2-3 pitting edema in bilateral lower extremities and shortness of breath. BNP 1104. 06/30/17 TTE with EF 30-35%, mildly dilated LV, global LV systolic dysfunction, grossly, mildly dilated and hypokinetic right ventricle, mild TR (EF previously 18% at [facility] 12/2016). She has tried a LifeVest but says it was always going off and did not fit right. ICD was recommended at [facility] however patient declined. Lasix on hold with worsening renal function. Fluid removal via ultrafiltration/HD per nephrology. Cont ASA, ARB, BB. Cardiology followed. Monitor fluid status. Down 52 lbs as of 07/31/17. Patient is agreeable to trying a life vest again. Will discuss with cardiology. Qualifiers: Congestive heart failure type: systolic Congestive heart failure chronicity : acute on chronic Qualified Code(s): I50.23 - Acute on chronic systolic ( congestive) heart failure (3) Hyponatremia Current Visit: Yes Status: Acute Assessment and plan: In the setting of volume overload. Neurologically intact. Monitor repeat BMP. Na 129 on 07/30 (4) Hypothyroid Current Visit: Yes Status: Acute Assessment and plan: Chronic. Continue home medication. 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 Cont home BP medications Qualifiers: Hypertension type: essential hypertension Qualified Code(s): I10 - Essential (primary) hypertension (6) DMII (diabetes mellitus, type 2) Current Visit: Yes Status: Acute Assessment and plan: per hx. Hgb A1c 7.3%. Continue SSI. Monitor blood sugars and titrate PRN Qualifiers: Diabetes mellitus water pumper insulin use: unspecified water pumper insulin use status Diabetes mellitus complication status: with kidney complications Diabetes mellitus complication detail: with chronic kidney disease Chronic kidney disease stage: stage 5, not on chronic dialysis Qualified Code(s): E11.22 - Type 2 diabetes mellitus with diabetic chronic kidney disease; N18.5 - Chronic kidney disease, stage 5 (7) Anasarca Current Visit: Yes Status: Acute Assessment and plan: Multifactorial with worsening renal function and acute diastolic heart failure. Continue ultrafiltration/HD. (8) Morbid obesity Current Visit: Yes Status: Chronic Assessment and plan: BMI 60.1. Attempt to encourage lifestyle modifications. (9) DVT prophylaxis Current Visit: Yes Status: Acute Assessment and plan: heparin - Time Spent With Patient Total time spent is greater than 50% in coordination of care (as documented) at patient's floor/unit and/or counseling patient: - Subjective Interval history: Seen and examined at bedside. Says she has a good night and feels well. No chest pain or shortness of breath. Says she feels swelling is significantly improved. Discussed ICD and LifeVest with patient and she is agreeable to try LifeVest again. Soreness of breath. - Constitutional Vitals: Temp Pulse Resp BP Pulse Ox 97.6 F 72 18 129/74 94 07/31/17 15:21 07/31/17 15:21 07/31/17 15:21 07/31/17 15:21 07/31/17 15:21 General appearance: Present: A&O X 3, morbidly obese - Head Head exam: Present: atraumatic, normocephalic - Eye Eye exam: Present: PERRL, conjuntiva pink, sclera anicteric Pupils: Present: PERRL - Neck Neck exam general surgery: Present: supple, trachea midline. Absent: lymphadenopathy - Respiratory Respiratory exam: Present: CTAB. Absent: accessory muscle use, rales, rhonchi, wheezes - Cardiovascular Cardiovascular exam: Present: RRR, +S1, +S2. Absent: diastolic murmur, gallop, rubs, systolic murmur - GI/Abdominal GI/Abdominal exam: Present: normal bowel sounds, soft, no peritoneal signs. Absent: distended, tenderness Additional comments: ABD obese and with hard/pitting edema - Extremities Exam Extremities exam: Present: pedal edema (Bilateral lower extremity pitting edema improved from yesterday's exam), warm, radial pulses palpable and symmetrical. Absent: calf tenderness, cyanotic - Neurological Exam Neurological exam: Present: CN II-XII intact, oriented X3, no focal deficits. Absent: pronater drift, facial droop, speech deficit - Skin Skin exam: Present: dry, intact Internal Medicine: Result - Labs CBC & Chem 7: 07/31/17 06:20 07/31/17 06:20 Labs: Short CBC 07/31/17 Range/Units 06:20 WBC 6.2 (4.3-11.1) K/mcL Hgb 9.1 L (11.5-15.4) g/dL Hct 29.5 L (35.3-44.9) % Plt Count 168 (140-400) K/mcL BMP 07/31/17 06:20 Sodium 127 L Potassium 3.9 Chloride 91 L Carbon Dioxide 28 BUN 44 H Creatinine 3.16 H Glucose 189 H Calcium 8.5 L - ABG Interpretation ABG results: PT/INR, D-dimer PT 13.6 Seconds (9.4-12.1) H 07/19/17 04:23 - VTE Documentation of Mechanical Device: Intermittent pneumatic compression device Consult Discharge Plan - Plan Referrals: Nathaniel Martin MD [Partnered Physician] - 08/25/17 1:00 pm Ramiro Vargas DO [Primary Care Provider] - 08/18/17 3:15 pm
[2017-08-01] MEDS: *HR* OxyCODONE Immed Rel 5 MG TABLET PO PRN (05:20)
[2017-08-01] MEDS ORDERED: 0.9 % Sodium Chloride 1,000 ML ONE (06:42)
[2017-08-01 08:06] LABS: Hematocrit 27.2 % (35.3-44.9); Hemoglobin 8.5 g/dL (11.5-15.4); Mean Corpuscular HGB Conc 31.3 g/dL (31.6-35.5); Mean Corpuscular Hemoglobin 28.7 pg (28.0-33.3); Mean Corpuscular Volume 91.9 fL (83.0-100.0); Mean Platelet Volume 11.2 fL (9.4-12.4); Platelet Count 161 K/mcL (140-400); Red Blood Count 2.96 M/mcL (3.82-4.97); Red Cell Distribution Width 14.1 % (11.5-14.5)
[2017-08-01] MEDS: Loratadine 10 MG TABLET PO SCH (08:17)
[2017-08-01] MEDS: Aspirin Enteric Coated 81 MG Tablet PO SCH (08:17)
[2017-08-01] MEDS: Insulin LISPRO 300 UNITS/3 ML VIAL SQ SCH ×2 (08:19→12:22)
[2017-08-01 08:27] LABS: Calcium 8.5 mg/dL (8.6-10.3); Potassium 4.5 mEq/L (3.5-5.1)
[2017-08-01] MEDS ORDERED: *HR* Heparin 10,000 UNIT/10 ML VIAL IV PRN (09:36)
[2017-08-01] MEDS ORDERED: 0.9 % Sodium Chloride 250 ML IVC PRN (09:36)
--- NOTE | 2017-08-01 11:31 | Nephrology Progress Note ---
Date of Encounter: 08/01/17 Time of Encounter: 11:29 - Assessment and Plan (1) CKD (chronic kidney disease) Current Visit: Yes Status: Chronic HD in progress. Continue to renal dose and avoid nephrotoxins if possible. May d/c from renal standpoint today, HD Tuesday [facility]. Qualifiers: Chronic kidney disease stage: unspecified stage Qualified Code(s): N18.9 - Chronic kidney disease, unspecified (2) Anasarca Current Visit: Yes Status: Acute Per primary team. (3) CHF (congestive heart failure), NYHA class III Current Visit: Yes Status: Acute Per primary team. Qualifiers: Congestive heart failure type: systolic Congestive heart failure chronicity : acute on chronic Qualified Code(s): I50.23 - Acute on chronic systolic ( congestive) heart failure (4) Anemia Current Visit: Yes Status: Acute Goal Hgb 10-11. Hgb 8.5 today will manage further in outpatient HD. Qualifiers: Anemia type: other cause Other causes of anemia: chronic disease, other Qualified Code(s): D63.8 - Anemia in other chronic diseases classified elsewhere (5) Depressed Current Visit: Yes Status: Acute Resolved. Qualifiers: Qualified Code(s): F32.9 - Major depressive disorder, single episode, unspecified Subjective Principal diagnosis: Biventricular CHF Interval history: Pt seen and examined in dialylsis unit, tolerating HD well. No CP/SOB, nausea, vomiting.States she is ready to go home. Objective - Vital Signs Vital signs: Vital Signs Temp Pulse Resp BP Pulse Ox 08/01/17 10:15 97.8 F 20 144/64 08/01/17 07:32 98.0 F 68 15 113/72 91 08/01/17 02:55 98.0 F 69 15 103/61 93 07/31/17 23:50 97.8 F 74 16 126/76 91 07/31/17 18:30 97.6 F 77 16 166/90 93 07/31/17 15:21 97.6 F 72 18 129/74 94 07/31/17 11:33 97.9 F 71 18 133/78 98 Intake and Output 07/31/17 08/01/17 08/01/17 23:59 07:59 15:59 Intake Total 1050 / 1050 840 / 840 Output Total 500 / 500 Balance 550 / 550 840 / 840 Intake: Oral 1050 / 1050 240 / 240 Intake, Rinseback and Flushes 600 / 600 Output: Urine 500 / 500 Other: Meal Breakfast Percent of Meal Consumed 100% Weight 128 kg Blood Glucose* 229 190 Hemodialysis Net Fluid Removed 0 (mL) Patient Weight 08/01/17 23:59 Weight 128 kg - General Appearance General appearance: Present: obese, chronically ill EENT: Present: ATNC, hearing intact, vision intact Respiratory: Present: clear Cardiology: Present: edema (+1 BLL), normal S1, normal S2 Dialysis Vascular Access: Venous Catheter (Tunneled Right chest, DRSG C/D/I.) Gastrointestinal: Present: normoactive bowel sounds, no tenderness Integumentary: Present: no rash, warm and dry Neurologic: Present: alert and oriented x3 Psychiatric: Present: mood/affect appropriate, cooperative - Lab 08/01/17 07:48 08/01/17 07:48 Most recent lab results Calcium 8.5 mg/dL (8.6-10.3) L 08/01/17 07:48 Phosphorus 4.9 mg/dL (2.7-4.5) H 07/20/17 05:40 Magnesium 1.6 mg/dL (1.6-2.6) 07/20/17 05:40 - VTE Documentation of Mechanical Device: Intermittent pneumatic compression device Consult Discharge Plan - Plan Referrals: Nathaniel Martin MD [Partnered Physician] - 08/25/17 1:00 pm Ramiro Vargas DO [Primary Care Provider] - 08/18/17 3:15 pm
[2017-08-01] MEDS ORDERED: 0.9 % Sodium Chloride 2,000 ML ONE (11:47)
[2017-08-01] MEDS: Gabapentin 300 MG CAPSULE PO SCH (13:36)
[2017-08-01] MEDS: Valsartan 80 MG TABLET PO SCH (13:36)
[2017-08-01] MEDS: hydrALAZINE 25 MG TABLET PO SCH ×2 (13:36→14:13)
--- NOTE | 2017-08-01 13:49 | Cardiology Progress Note ---
Date of Encounter: 08/01/17 Time of Encounter: 13:44 Assessment and Plan (1) Biventricular heart failure with reduced left ventricular function Current Visit: Yes Status: Chronic Per cardiology: Known bi-ventricular heart failure diagnosed earlier this year. TTE 04/27/17 from [facility] reviewed with LV mildly dilated, mild concentric LVH, diffuse global hypokinesis, LVEF 25-30%, septal flattening of the interventricular septum consistent with RV volume overload, RV is mildly dilated with mildly reduced global systolic function, RA mildly dilated, mild TR , trivial pericardial effusion. Per review of [facility] records, LHC was not performed due to renal function. Nuclear stress test was performed without evidence of ischemia. Cardiomyopathy thought to be non-ischemic. Reports having viral illness right before diagnosis. Denies chest pain. TTE [facility] 06/30/17 with LVEF 30-35%, mildly dilated mildly hypokinetic RV. BNP 1104. Patient reported over 40 lb weight gain prior to admit. Due to KAYA/CKD stage IV she was started on ultrafiltration/dialysis to assist in fluid removal. Still recommended to avoid nephro-toxins per nephrology. Out- pt f /u scheduled with dialysis. Net negative 40,382 L. D/c planning per hospitalist, cardiology re-consulted to place life vest prior to d/c. Reviewed with Dr. Barragan. Life vest ordered for cardiomyopathy. Out-pt f/u with EP will be scheduled to evaluate for permanent ICD placement. CHF education reviewed. Discussion w patient/family: The assessment and plan as outlined above was discussed with the patient and/or family members who expressed understanding and agreement. All questions were answered. Thank you for involving us in the care of your patient. Please call with any questions. Subjective Principal diagnosis: Biventricular CHF Interval history: Ms. Murphy is currently receiving dialysis. Cardiology re-consulted for life vest placement. Objective Vital Signs, Last 4 Hours Temp Resp BP 08/01/17 11:45 109/55 08/01/17 11:30 118/62 08/01/17 11:15 127/62 08/01/17 11:00 119/72 08/01/17 10:45 135/79 08/01/17 10:30 133/78 08/01/17 10:15 97.8 F 20 144/64 Results 08/01/17 07:48 08/01/17 07:48 Lab Results 08/01/17 08/01/17 07:48 07:48 WBC 6.1 Hgb 8.5 L Hct 27.2 L Plt Count 161 Sodium 124 L Potassium 4.5 Chloride 90 L Carbon Dioxide 25 BUN 54 H Creatinine 3.33 H Glucose 191 H Calcium 8.5 L - Imaging and Cardiology Echo: report reviewed - EKG Interpretation EKG results cardiology: personally reviewed - VTE Documentation of Mechanical Device: Intermittent pneumatic compression device Consult Discharge Plan - Plan Instructions: Heart Failure (DC), Hemodialysis (DC), Dialysis Diet (DC) Additional Instructions: [facility] [phone] [address] [place] [address] *[facility]hind [employer] First chair time is Thursday August 03, 2017 at 4:30pm. Patient must arrive at 4pm to complete admission paperwork. Referrals: Nathaniel Martin MD [Partnered Physician] - 08/25/17 1:00 pm Ramiro Vargas DO [Primary Care Provider] - 08/18/17 3:15 pm Prescriptions: Ferrous Sulfate 325 mg PO Q48H #30 tablet Valsartan [Diovan] 80 mg PO BID #60 tablet
[2017-08-01 14:07] VITALS: BP 165/91
--- NOTE | 2017-08-01 14:14 | Discharge Summary ---
- NOTES TO OUTPATIENT PROVIDER Notes to Outpatient Provider: Recommend follow-up within one week Orders not resulted at time of discharge: Pending orders 08/02/17 04:00 BMP [Basic Metabolic Panel] AM 0400 Complete Blood Count w/o Diff [HEME] AM 0400 Date of Encounter: 08/01/17 Time of Encounter: 14:11 - Discharge Diagnosis (1) CKD (chronic kidney disease) Priority: Primary Status: Chronic Assessment and Plan: Has known acute diastolic heart failure with advanced chronic heart failure and progressive renal decline. Has not consistently followed up with nephrology. Now with worsening renal function/decline with cycles of worsening edema requiring more diuretics and worsening creatinine. HD/ultrafiltration initiated this admission. Tunneled HD catheter placed 07/26/17. Outpatient HD set-up for Tuesday. First HD session 08/03/17. Qualifiers: Chronic kidney disease stage: unspecified stage Qualified Code(s): N18.9 - Chronic kidney disease, unspecified (2) CHF (congestive heart failure), NYHA class III Priority: Primary Status: Acute Assessment and Plan: Acute exacerbation of biventricular heart failure. Clinically fluid overloaded with anasarca, +2-3 pitting edema in bilateral lower extremities and shortness of breath. BNP 1104. 06/30/17 TTE with EF 30-35%, mildly dilated LV, global LV systolic dysfunction, grossly, mildly dilated and hypokinetic right ventricle, mild TR (EF previously 18% at [facility] 12/2016). She has tried a LifeVest but says it was always going off and did not fit right. ICD was recommended at [facility] however patient declined. Lasix on hold with worsening renal function. Fluid removal via ultrafiltration/HD per nephrology. Discussed with nephrology and discharge home on 80 mg Lasix on days she does not have dialysis. Cont ASA, ARB , BB, lasix. LifeVest recommended and patient is agreeable however she did not want to wait for LifeVest to be discharge. I fast to be placed at patient's home. Follow-up with cardiology outpatient Qualifiers: Congestive heart failure type: systolic Congestive heart failure chronicity : acute on chronic Qualified Code(s): I50.23 - Acute on chronic systolic ( congestive) heart failure (3) Hyponatremia Priority: Primary Status: Acute Assessment and Plan: In the setting of volume overload. Neurologically intact. Na 124 at discharge (4) Hypothyroid Priority: Primary Status: Acute Assessment and Plan: Chronic. Continue home medication. 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 Cont home BP medications Qualifiers: Hypertension type: essential hypertension Qualified Code(s): I10 - Essential (primary) hypertension (6) DMII (diabetes mellitus, type 2) Priority: Primary Status: Acute Assessment and Plan: per hx. Hgb A1c 7.3%. Continue home diabetes medication regimen Qualifiers: Diabetes mellitus chcf insulin use: unspecified chcf insulin use status Diabetes mellitus complication status: with kidney complications Diabetes mellitus complication detail: with chronic kidney disease Chronic kidney disease stage: stage 5, not on chronic dialysis Qualified Code(s): E11.22 - Type 2 diabetes mellitus with diabetic chronic kidney disease; N18.5 - Chronic kidney disease, stage 5 (7) Anasarca Priority: Primary Status: Acute Assessment and Plan: Multifactorial with worsening renal function and acute diastolic heart failure. (8) Morbid obesity Priority: Primary Status: Chronic Assessment and Plan: BMI 60.1. Attempt to encourage lifestyle modifications. Hospital course: Please see assessment and plan for Hospital course Discharge discussed with: patient (Seen and examined at bedside. Says she had uneventful night and feels well. Still feels like she is losing weight daily and edema continues to improve. She would like to go home today if possible. Revisited the conversation of ICD/LifeVest and patient is agreeable to LifeVest at this time. Cardiology reconsulted prior to discharge.) - Time Spent with Patient Total time spent providing and/or coordinating discharge services: - Discharge Medications Prescriptions: Ferrous Sulfate 325 mg PO Q48H #30 tablet Furosemide [Lasix] 80 mg PO DAILY #60 tablet Valsartan [Diovan] 80 mg PO BID #60 tablet Home Medications: Carvedilol [Coreg] 50 mg PO BID 06/29/17 [History] Gabapentin [Neurontin] 300 mg PO BID 06/29/17 [History] Hydralazine HCl 100 mg PO TID 06/29/17 [History] Isosorbide DInitrate [Isosorbide Dinitrate] 30 mg PO TID 06/29/17 [History] Sertraline [Zoloft] 100 mg PO DAILY 06/29/17 [History] Aspirin [Lo-Dose Aspirin EC] 81 mg PO DAILY 06/30/17 [History] Cetirizine HCl 10 mg PO DAILY 07/18/17 [History] Levothyroxine [Synthroid] [place] [address]/18/17 [History] OxyCODONE Immed Rel [Roxicodone 10 MG] 20 mg PO Q4H PRN 07/18/17 [History] Ferrous Sulfate 325 mg PO Q48H #30 tablet 08/01/17 [Rx] Furosemide [Lasix] 80 mg PO DAILY #60 tablet 08/01/17 [Rx] Valsartan [Diovan] 80 mg PO BID #60 tablet 08/01/17 [Rx] Allergies/Adverse Reactions: 3 Allergy/AdvReac Type Severity Reaction Status Date / Time baclofen Allergy Diarrhea Verified 07/18/17 15:42 exenatide [From [place]] Allergy Diarrhea Verified 07/18/17 15:42 sulfamethoxazole Allergy Rash Verified 07/18/17 15:42 [From Bactrim] trimethoprim [From Bactrim] Allergy Rash Verified 07/18/17 15:42 Date of admission: 07/18/17 19:04 Primary care physician: Con Bravo Consults: 07/19/17 08:03 Consult to Interventional Radiology [CONS] Routine Consulting Provider: Radiology Interventional Cols Reason for Consult: Please assess for temporary HD catheter placement for dialysis and ultrafiltration. Thank you Call Completed: No 07/19/17 08:15 Consult to Dialysis [CONS] ONCE 07/20/17 07:15 Consult to Dialysis [CONS] ONCE 07/21/17 08:30 Consult to Dialysis [CONS] ONCE 07/21/17 19:45 Consult to Dialysis [CONS] ONCE 07/23/17 10:15 Consult to Dialysis [CONS] ONCE 07/24/17 10:11 Consult to Welding Equipment Repairer [CONS] Routine Reason for SW Consult: Patient will need dialysis unit upon discharge. 07/25/17 05:00 Consult to Dialysis [CONS] ONCE 07/25/17 12:27 Consult to Interventional Radiology [CONS] Routine Consulting Provider: Radiology Interventional Cols Reason for Consult: Patient needs a tunneled catheter for outpatient dialysis. Call Completed: No 07/26/17 08:15 Consult to Dialysis [CONS] ONCE 07/26/17 13:42 PT [Consult to Physical Therapy] [CONS] Routine Comment: Evaluate, develop and implement POC Reason for Consult: Weakness and deconditioning. ? SNF Does patient have active BEDREST order?: No Is patient medically & hemodynamically stable?: Yes 07/26/17 15:05 Consult to Nurse Navigator [CONS] Routine Comment: CHF 07/27/17 05:30 Consult to Dialysis [CONS] ONCE 07/28/17 08:00 Consult to Dialysis [CONS] ONCE 07/29/17 08:15 Consult to Dialysis [CONS] ONCE 07/30/17 09:30 Consult to Dialysis [CONS] ONCE 08/01/17 09:45 Consult to Dialysis [CONS] ONCE 08/02/17 09:45 Consult to Dialysis [CONS] ONCE Discharging clinician: Regi Maddox Anticipated date of discharge: 08/01/17 - Constitutional Vitals: Temp Pulse Resp BP Pulse Ox 97.8 F 80 18 165/91 91 08/01/17 10:15 08/01/17 14:06 08/01/17 14:06 08/01/17 14:06 08/01/17 07:32 General appearance: Present: A&O X 3, morbidly obese - Head Head exam: Present: atraumatic, normocephalic - Eye Eye exam: Present: PERRL, conjuntiva pink, sclera anicteric Pupils: Present: PERRL - Neck Neck exam general surgery: Present: supple, trachea midline. Absent: lymphadenopathy - Respiratory Respiratory exam: Present: CTAB. Absent: accessory muscle use, rales, rhonchi, wheezes - Cardiovascular Cardiovascular exam: Present: RRR, +S1, +S2. Absent: diastolic murmur, gallop, rubs, systolic murmur - GI/Abdominal GI/Abdominal exam: Present: normal bowel sounds, soft, no peritoneal signs. Absent: distended, tenderness Additional comments: ABD obese with hard edema - Extremities Exam Extremities exam: Present: pedal edema, warm, radial pulses palpable and symmetrical. Absent: calf tenderness, cyanotic - Neurological Exam Neurological exam: Present: CN II-XII intact, oriented X3, no focal deficits. Absent: pronater drift, facial droop, speech deficit - Skin Skin exam: Present: dry, intact - Patient Status Disposition: Home Health Service Condition: Good Functional capacity at discharge: uses cane/walker Overall status at discharge: patient is progressing back to baseline - Discharge Instructions Instructions: Heart Failure (DC), Hemodialysis (DC), Dialysis Diet (DC) Follow Up With: Nathaniel Martin MD [Partnered Physician] - 08/25/17 1:00 pm Ramiro Vargas DO [Primary Care Provider] - 08/18/17 3:15 pm Jose Manuel Barragan DO [Partnered Physician] - (Please call the office for follow- up appointment cannot heard from them within 2-3 weeks) Additional Instructions: Gage Kinney [phone] [address] [place] [address] *[employer] First chair time is Thursday August 03, 2017 at 4:30pm. Patient must arrive at 4pm to complete admission paperwork. - Diet and Activity Activity: increase activity as tolerated Diet: diabetic diet, low fat, low cholesterol, low salt diet - VTE Documentation of Mechanical Device: Intermittent pneumatic compression device
== END 2017-08-01 16:03 | disposition home health service (06) | DRG 194 ==
LOC: 3BNU 13:44 → EMEROO 13:44 → 3BNU 19:08
PROVIDERS: ADMIT Internal Medicine Nephrology; ATTEND Internal Medicine Nephrology
PROC: IRPERMA (2017-07-26 12:00)